=== PATIENT | male | born 1955 | race Caucasian/White ===

== ENCOUNTER → 2016-08-09 | Outpatient (CLI) | payer MEDICARE, OTHER ==
[2016-08-09 10:18] LABS: Non-African American GFR(MDRD) >60 (>60 ml/min/1.73 sqM)
--- NOTE | 2016-08-09 14:39 | MR ---
EXAMINATION TYPE: MR iac wo/w con DATE OF EXAM: 08/09/2016 12:54 PM COMPARISON: NONE HISTORY: H92.01 otalgia rt ear, TECHNIQUE: Multiplanar and multispin-echo imaging of the brain was performed both before and after the administr ation of contrast. High-resolution images are obtained of the internal auditory canals performed uti lizing 18 mL intravenous MultiHance contrast. The ventricles, basal cisterns and sulci overlying the cerebral convexities are mildly enlarged. There is no evidence for midline shift or mass effect. Acute intracranial hemorrhage or extra-axial collection is not evident. There is mild scattered periventricular white matter ischemic demyelination and remote deep white mat ter insults. High-resolution imaging of the internal auditory canals fails demonstrate evidence for an enhancing a coustic schwannoma or cerebellopontine cistern angle mass. Following contrast administration, there is no evidence for pathologic enhancement or enhancing mass. The paranasal sinuses and mastoid air cells are mildly thickened bilaterally suggesting chronic masto iditis right greater than left. IMPRESSION: 1. No evidence of acoustic schwannoma or cerebellopontine angle mass. 2. Correlate for chronic mastoiditis.
--- NOTE | 2016-08-11 09:34 | MR ---
EXAMINATION TYPE: MR tmj wo con DATE OF EXAM: 08/09/2016 12:54 PM COMPARISON: NONE HISTORY: otalgia rt ear, locked rt jaw Standard multiplanar, multisequence MRI departmental protocol Multiplanar, multisequence images of the bilateral TMJ joint spaces were acquired. FINDINGS: Left TMJ: There is poor visualization of the meniscus. This may be trapped anterior to the temporal m andibular joint. No definite recapture is identified. Condyle subluxes anteriorly with opening. Right TMJ: There appears to be subluxation of the condyle anterior at the temporomandibular joint wit h opening. The meniscus where visualized may sublux normally. Meniscus is limited visualization. IMPRESSION: 1. Extremely limited due to nondiagnostic examination. 2. Adequate demonstration of the meniscal subluxation and recapture is essentially nondiagnostic. Rig ht-sided may be better visualized although remaining limited.
== END | disposition home or self-care (01) ==
LOC: RADMRIMAIN 09:32
PROVIDERS: ATTEND Otolaryngology
DX: S03.01XA Dislocation of jaw, right side, initial encounter (principal); H91.90 Unspecified hearing loss, unspecified ear
CPT/HCPCS: 82565; 70553; 70336; A9577

== ENCOUNTER 2016-11-25 14:41 | Emergency (ER) | payer MEDICARE ==
[2016-11-25] MEDS ORDERED: SODIUM CHLORIDE 0.9% 1,000 ML IV STA (16:08)
[2016-11-25] MEDS ORDERED: KETOROLAC 30 MG/ML 1 ML VIAL IVP STA (16:09)
--- NOTE | 2016-11-25 16:13 | ED ---
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 He had x-rays done in his doctor's office and they were not sure if he had a rib fracture or not. He presents today because he has a sharp pain he states he gets worse with coughing and movement and deep breathing is a 9/10 at this level when he is at rest at 6-7/10 he currently is only on Plavix for blood thinner. He is scheduled to have colonoscopy done in the near future. He presents today again because of the persistent right-sided chest wall pain. He states he has had heart disease the past he does have cardiac stents does feel different. He denies any phlegm production with his cough though he states he seems HAVE a reflux type activity. MD Complaint: chest pain, other - Related Data Home Medications Medication Instructions Recorded Confirmed Methotrexate Sodium [Methotrexate] 20 mg PO SA 10/10/14 11/25/16 predniSONE 5 mg PO DAILY 10/10/14 11/25/16 Clopidogrel [Plavix] 75 mg PO DAILY 09/25/15 11/25/16 Atorvastatin [Lipitor] 80 mg PO DAILY 09/26/15 11/25/16 Fluticasone Nasal [place] [Flonase 2 spr EA NOSTRIL DAILY 11/25/16 11/25/16 Nasal [place]] Gemfibrozil [Lopid] 600 mg PO AC-BID 11/25/16 11/25/16 Lisinopril [Zestril] 10 mg PO DAILY 11/25/16 11/25/16 Metoprolol Succinate (ER) [Toprol 25 mg PO DAILY 11/25/16 11/25/16 Xl] Previous Rx's Medication Instructions Recorded Aspirin 81 mg PO DAILY #30 chew 10/13/14 Nitroglycerin Sl Tabs [Nitrostat] 0.4 mg SUBLINGUAL Q5M PRN #25 tab 10/13/14 Spironolactone [Aldactone] 25 mg PO DAILY #30 tab 10/13/14 Ipratropium Post 0.06%Nasal 2 spray NASAL BID #1 spray 10/04/15 [Atrovent Nasal 0.06%] Cyclobenzaprine [Flexeril] 10 mg PO TID #14 tab 11/25/16 Hydrocodone/Acetaminophen [[place] 1 each PO Q6HR PRN #20 tab 11/25/16 5-325] Allergies Allergy/AdvReac Type Severity Reaction Status Date / Time Penicillins Allergy Rash/Hives Verified 11/25/16 16:11 Review of Systems ROS Statement: Those systems with pertinent positive or pertinent negative responses have been documented in the HPI. ROS Other: All systems not noted in ROS Statement are negative. EKG Findings - EKG Results: EKG: interpreted by ALLISON, sinus rhythm (Sinus rhythm with a rate of 81 ID interval 136 QRS duration 86 daily since QTC of 368/427 low-voltage QRS and nonspecific inferior and anterior lateral changes.) Past Medical History Past Medical History: Coronary Artery Disease (CAD), Hyperlipidemia, Hypertension, Myocardial Infarction (non Q-wave), Rheumatoid Arthritis (RA) Additional Past Medical History / Comment(s): only 1 ear canal d/t defect History of Any Multi-Drug Resistant Organisms: None Reported Past Surgical History: No Surgical Hx Reported, Ear Surgery, Heart Catheterization With Stent, Orthopedic Surgery Additional Past Surgical History / Comment(s): plate right leg, arthroscopic in the right ankle 3, sinus surgery, multiple reconstructive surgeries on face, bilateral eyelid surgery 23 times. Past Anesthesia/Blood Transfusion Reactions: No Reported Reaction Date of Last Stent Placement:: unknown Past Psychological History: Anxiety, Depression Smoking Status: Never smoker Past Alcohol Use History: None Reported Additional Past Alcohol Use History / Comment(s): Patient denies any tobacco use. He states he drinks 2-425 ounce beers every . He smokes crack cocaine for 30 years and has been to [place] on 2 occasions as well as stated here in house. Past Drug Use History: Cocaine - Past Family History Father Family Medical History: Coronary Artery Disease (CAD), Myocardial Infarction ([place] ) Additional Family Medical History / Comment(s): Father at age 61 from myocardial infarction. Mother Family Medical History: Diabetes Mellitus Additional Family Medical History / Comment(s): Mother in her 30s from complications of diabetes. Brother(s) Family Medical History: Diabetes Mellitus, Hypertension Additional Family Medical History / Comment(s): Patient has 2 brothers one with diabetes and one with hypertension. Sister(s) Additional Family Medical History / Comment(s): He has one sister with diabetes and one half-sister. He has 3 children with no major medical problems. 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 Limitations: no limitations General appearance: alert, in no apparent distress, anxious Head exam: Present: atraumatic, normocephalic Eye exam: Present: normal appearance, PERRL, EOMI. Absent: scleral icterus, conjunctival injection, periorbital swelling ENT exam: Present: normal oropharynx, other (As noted above) Neck exam: Present: normal inspection. Absent: tenderness, meningismus, lymphadenopathy Respiratory exam: Present: normal lung sounds bilaterally, chest wall tenderness Cardiovascular Exam: Present: normal rhythm, tachycardia GI/Abdominal exam: Present: other (Obese abdomen). Absent: tenderness, pulsatile mass, hernia Extremities exam: Present: normal inspection, full ROM, normal capillary refill. Absent: tenderness, pedal edema, joint swelling, calf tenderness Back exam: Present: normal inspection Neurological exam: Present: alert, oriented X3, CN II-XII intact Psychiatric exam: Present: normal affect, normal mood Skin exam: Present: warm, dry, intact, normal color. Absent: rash Course Vital Signs 11/25/16 11/25/16 15:03 17:16 Temperature 97.9 F 98.2 F Pulse Rate 115 H 91 Respiratory 20 14 Rate Blood Pressure 119/89 127/64 O2 Sat by Pulse 96 95 Oximetry Chest Pain MDM - MDM I did evaluate the x-rays and report no acute findings. The patient presentation is consistent with costochondritis/chest wall pain anti- inflammatories are indicated as well as muscle relaxants. Patient be discharged with follow-up with his doctor return when necessary with respect to his chronic for back to his physician who can set up ENT or GI appointments. Disposition Clinical Impression: Chest wall syndrome, Costalchondritis Disposition: HOME SELF-CARE Condition: Good Instructions: Costochondritis (ED), Chest Pain (ED) Prescriptions: Cyclobenzaprine [Flexeril] 10 mg PO TID #14 tab Hydrocodone/Acetaminophen [[place] 5-325] 1 each PO Q6HR PRN #20 tab PRN Reason: Pain
[2016-11-25 16:28] LABS: Basophils # (A) 0.1 k/uL (0-0.2); Basophils % (A) 1 %; CH 33.6; Eosinophils # (A) 0.1 k/uL (0-0.7); Eosinophils % (A) 1 %; HCT 51.4 % (39.0-53.0); HDW 2.63; HGB 17.3 gm/dL (13.0-17.5); Luc # (Auto) 0.22; Luc % (Auto) 3; Lymphocytes # (A) 1.7 k/uL (1.0-4.8); Lymphocytes % (A) 22 %; MCH 33.3 pg (25.0-35.0); MCHC 33.6 g/dL (31.0-37.0); MCV 99.2 fL (80.0-100.0); Mean Platelet Volume 6.3; Monocytes # (A) 0.3 k/uL (0-1.0); Monocytes % (A) 4 %; Neutrophils # (A) 5.5 k/uL (1.3-7.7); Neutrophils % (A) 70 %; RBC 5.18 m/uL (4.30-5.90); RDW 13.6 % (11.5-15.5); WBC 7.9 k/uL (3.8-10.6); WBC (Perox) 7.67
--- NOTE | 2016-11-25 16:36 | XR ---
EXAMINATION TYPE: XR chest 2V DATE OF EXAM: 11/25/2016 4:33 PM COMPARISON: 07/20/2013 HISTORY: Right rib pain TECHNIQUE: Frontal and lateral views of the chest are obtained. FINDINGS: There is mild linear density at the lung bases consistent with subsegmental atelectasis. T here is right-sided rib deformity noted. There are no hilar masses. Heart size is normal. There is no pleural effusion. IMPRESSION: There is new mild subsegmental atelectasis at the lung bases compared to last exam. No f racture seen.
[2016-11-25 16:37] LABS: ALT 39 U/L (21-72); AST 27 U/L (17-59); Alkaline Phosphatase 69 U/L (38-126); Amylase 49 U/L (30-110); Anion Gap 11 mmol/L; Blood Urea Nitrogen 16 mg/dL (9-20); Calcium 9.5 mg/dL (8.4-10.2); Carbon Dioxide 24 mmol/L (22-30); Chloride 103 mmol/L (98-107); Glucose 93 mg/dL (74-99); Magnesium 1.9 mg/dL (1.6-2.3); Non-African American GFR(MDRD) >60 (>60 ml/min/1.73 sqM); Potassium 5.2 mmol/L (3.5-5.1); Sodium 138 mmol/L (137-145); Total Bilirubin 0.9 mg/dL (0.2-1.3); Total Protein 7.5 g/dL (6.3-8.2)
[2016-11-25 16:41] LABS: Partial Thromboplastin Time 23.6 sec (22.0-30.0); Prothrombin Time 10.6 sec (9.0-12.0)
[2016-11-25 16:48] LABS: Creatine Kinase 51 U/L (55-170)
[2016-11-25 17:01] LABS: Creatine Kinase MB 0.8 ng/mL (0.0-2.4); Troponin I <0.012 ng/mL (0.000-0.034)
[2016-11-25 18:33] VITALS: BP 120/81; PULSE 76; RESP 16; TEMP 98.5
== END 2016-11-25 18:45 | disposition home or self-care (01) ==
LOC: EC 14:41
DX: M94.0 Chondrocostal junction syndrome [Tietze] (principal); M06.9 Rheumatoid arthritis, unspecified; E78.5 Hyperlipidemia, unspecified; I10 Essential (primary) hypertension; Z88.0 Allergy status to penicillin; Z79.02 Long term (current) use of antithrombotics/antiplatelets; Z79.52 Long term (current) use of systemic steroids; Z79.51 Long term (current) use of inhaled steroids; Z79.899 Other long term (current) drug therapy
CPT/HCPCS: 99285; 96374; 96361 ×2; 36415; 93005; 85379; 83880; 80053; 82150; 82550; 82553; 83690; 83735; 84484; 85025; 85610; 85730; 71020; J1885

== ENCOUNTER → 2017-01-20 | Outpatient (CLI) | payer MEDICARE ==
--- NOTE | 2017-01-20 19:12 | CT ---
EXAMINATION TYPE: CT abdomen w con DATE OF EXAM: 01/20/2017 COMPARISON: NONE HISTORY: Right upper quadrant pain. Possible hernia. Cartilage from ribs removed from that region. CT DLP: 1114.00 mGycm Automated exposure control for dose reduction was used. TECHNIQUE: Helical acquisition of images was performed from the lung bases through the top of iliac crest to include entire abdomen. CONTRAST: Performed with Oral Contrast and with IV Contrast, patient injected with 100 mL of Omnipaque 300. FINDINGS: Lung bases are clear of consolidation. There is no pleural effusion. The heart size is normal. Liver shows some fatty infiltration. Spleen appears normal. There is no pancreatic mass. Gallbladder is contracted. Bile ducts are not dilated. There is no adrenal mass. Kidneys show satisfactory contra st opacification. There is no hydronephrosis. There is no retroperitoneal adenopathy. There is no asc ites. There is a small umbilical hernia that measures 1 cm that contains fat. I see no bony destructi ve process. IMPRESSION: SMALL UMBILICAL HERNIA. FATTY INFILTRATION OF THE LIVER. NO SIGN OF ACUTE ABDOMEN . NO SIGN OF DIAPHR AGMATIC HERNIA.
== END | disposition home or self-care (01) ==
LOC: RADCTMAIN 17:54
PROVIDERS: ATTEND Surgery
DX: K42.9 Umbilical hernia without obstruction or gangrene (principal); K76.0 Fatty (change of) liver, not elsewhere classified
CPT/HCPCS: 74160; Q9967

== ENCOUNTER 2018-03-26 02:45 | Inpatient (IN) | payer MEDICARE, MEDICAID ==
[2018-03-26 04:37] LABS: Amphetamine Screen,Urine Not Detected (NotDetected); Barbiturate Screen,Urine Not Detected (NotDetected); Benzodiazepines Screen,Urine Not Detected (NotDetected); Cocaine Screen,Urine Detected (NotDetected); Methadone Screen, Urine Not Detected (NotDetected); Opiate Screen,Urine Not Detected (NotDetected); Oxycodone Screen, Urine Not Detected (NotDetected); Phencyclidine Screen,Urine Not Detected (NotDetected); Tricyclic Antidepressant,Urine Not Detected (NotDetected); Urn Cannabinoid Scrn Not Detected (NotDetected)
--- NOTE | 2018-03-26 12:18 | ED ---
General Adult HPI - General Chief complaint: Psychiatric Symptoms Stated complaint: Mental Health Time Seen by Provider: 03/26/18 02:49 Source: EMS, RN notes reviewed, old records reviewed Mode of arrival: EMS Limitations: no limitations - History of Present Illness Initial comments: This is a 63-year-old male presenting for evaluation regarding suicidal thoughts. Major depression, patient is history of psychiatric illness. Patient feels like he is a burn to his family he wants to kill himself. He plans on killing himself. Patient currently denies any drugs or alcohol - Related Data Home Medications Medication Instructions Recorded Confirmed Methotrexate Sodium [Methotrexate] 20 mg PO SA 10/10/14 03/26/18 Clopidogrel [Plavix] 75 mg PO DAILY 09/25/15 03/26/18 Atorvastatin [Lipitor] 80 mg PO DAILY 09/26/15 03/26/18 Fluticasone Nasal [place] [Flonase 1 spr EA NOSTRIL DAILY 11/25/16 03/26/18 Nasal [place]] Etanercept [Enbrel] 50 mg SQ Q7DAYS 03/26/18 03/26/18 Losartan Potassium [Cozaar] 25 mg PO DAILY 03/26/18 03/26/18 Loteprednol Etabonate [Lotemax] 5 ml OP MOWEFR 03/26/18 03/26/18 Metoprolol Tartrate [Lopressor] 50 mg PO DAILY 03/26/18 03/26/18 Previous Rx's Medication Instructions Recorded Aspirin 81 mg PO DAILY #30 chew 10/13/14 Nitroglycerin Sl Tabs [Nitrostat] 0.4 mg SUBLINGUAL Q5M PRN #25 tab 10/13/14 Spironolactone [Aldactone] 25 mg PO DAILY #30 tab 10/13/14 Allergies Allergy/AdvReac Type Severity Reaction Status Date / Time Penicillins Allergy Rash/Hives Verified 03/26/18 09:37 Review of Systems ROS Statement: Those systems with pertinent positive or pertinent negative responses have been documented in the HPI. ROS Other: All systems not noted in ROS Statement are negative. Past Medical History Past Medical History: Coronary Artery Disease (CAD), Hyperlipidemia, Hypertension, Myocardial Infarction (non Q-wave), Rheumatoid Arthritis (RA) Additional Past Medical History / Comment(s): only 1 ear canal d/t defect History of Any Multi-Drug Resistant Organisms: None Reported Past Surgical History: No Surgical Hx Reported, Ear Surgery, Heart Catheterization With Stent, Orthopedic Surgery Additional Past Surgical History / Comment(s): plate right leg, arthroscopic in the right ankle 3, sinus surgery, multiple reconstructive surgeries on face, bilateral eyelid surgery 23 times. Past Anesthesia/Blood Transfusion Reactions: No Reported Reaction Date of Last Stent Placement:: unknown Past Psychological History: Anxiety, Depression Smoking Status: Never smoker Past Alcohol Use History: Occasional Past Drug Use History: Cocaine - Past Family History Father Family Medical History: Coronary Artery Disease (CAD), Myocardial Infarction ([place] ) Additional Family Medical History / Comment(s): Father at age 61 from myocardial infarction. Mother Family Medical History: Diabetes Mellitus Additional Family Medical History / Comment(s): Mother in her 30s from complications of diabetes. Brother(s) Family Medical History: Diabetes Mellitus, Hypertension Additional Family Medical History / Comment(s): Patient has 2 brothers one with diabetes and one with hypertension. Sister(s) Additional Family Medical History / Comment(s): He has one sister with diabetes and one half-sister. He has 3 children with no major medical problems. General Exam Limitations: no limitations General appearance: alert, in no apparent distress Head exam: Present: atraumatic, normocephalic, normal inspection Eye exam: Present: normal appearance, PERRL, EOMI. Absent: scleral icterus, conjunctival injection, periorbital swelling ENT exam: Present: normal exam, mucous membranes moist Neck exam: Present: normal inspection. Absent: tenderness, meningismus, lymphadenopathy Respiratory exam: Present: normal lung sounds bilaterally. Absent: respiratory distress, wheezes, rales, rhonchi, stridor Cardiovascular Exam: Present: regular rate, normal rhythm, normal heart sounds. Absent: systolic murmur, diastolic murmur, rubs, gallop, clicks GI/Abdominal exam: Present: soft, normal bowel sounds. Absent: distended, tenderness, guarding, rebound, rigid Extremities exam: Present: normal inspection, full ROM, normal capillary refill. Absent: tenderness, pedal edema, joint swelling, calf tenderness Back exam: Present: normal inspection Neurological exam: Present: alert, oriented X3, CN II-XII intact Psychiatric exam: Present: normal affect, normal mood Skin exam: Present: warm, dry, intact, normal color. Absent: rash Course Vital Signs 03/26/18 03/26/18 03/26/18 02:54 06:11 11:38 Temperature 98.0 F 97.8 F 98.6 F Pulse Rate 93 100 96 Respiratory 18 18 18 Rate Blood Pressure 168/115 157/97 164/92 O2 Sat by Pulse 93 L 95 94 L Oximetry Medical Decision Making - Medical Decision Making 60 female seen and evaluated with psychiatry, patient be transferred for inpatient psychiatric treatment - Lab Data Lab Results 03/26/18 Range/Units 04:05 Urine Opiates Screen Not Detected (NotDetected) Ur Oxycodone Screen Not Detected (NotDetected) Urine Methadone Screen Not Detected (NotDetected) Ur Propoxyphene Screen Not Detected (NotDetected) Ur Barbiturates Screen Not Detected (NotDetected) U Tricyclic Antidepress Not Detected (NotDetected) Ur Phencyclidine Scrn Not Detected (NotDetected) Ur Amphetamines Screen Not Detected (NotDetected) U Methamphetamines Scrn Not Detected (NotDetected) U Benzodiazepines Scrn Not Detected (NotDetected) Urine Cocaine Screen Detected H (NotDetected) U Marijuana (THC) Screen Not Detected (NotDetected) Disposition Clinical Impression: Depression, Suicidal ideation Disposition: TRANSFER TO PSYCH HOSP/UNIT Condition: Fair Is patient prescribed a controlled substance at d/c from ED?: No Referrals: Van Wells MD [Primary Care Provider] - 1-2 days
[2018-03-26] MEDS ORDERED: ZIPRASIDONE 20 MG VIAL IM PRN (21:24)
[2018-03-26] MEDS ORDERED: MAGNESIUM HYDROXIDE 2,400 MG/10 ML CUP PO PRN (21:24)
[2018-03-26] MEDS ORDERED: MAG HYDROX/AL HYDROX/SIMETH 30 ML CUP PO PRN (21:24)
[2018-03-26] MEDS ORDERED: ACETAMINOPHEN TAB 325 MG TAB PO PRN (21:24)
[2018-03-26] MEDS: LORazepam 1 MG TAB PO PRN (22:41)
--- NOTE | 2018-03-26 23:30 | P.MDCNMH ---
History of Present Illness H&P Date: 03/26/18 Chief Complaint: medical management 63-year-old male with history of hypertension, CAD status post stents, ischemic cardiomyopathy with left ventricular ejection fraction of 30%. Patient presented to the hospital due to suicidal ideation, patient feels that she is a burden to his family feels hopeless and helpless. Patient had multiple episodes of suicidal ideation in the past. Patient also admits to using cocaine and drinking alcohol on regular basis. Currently patient is very emotional and tearful he feels rejected by the family. Patient reports defect when he was born. Currently denies any fevers or chills denies any headache denies any focal neurologic deficits. He is reporting some chest pressure when he becomes emotional but currently denies any chest pain or trouble breathing. Patient denies any GI bleeding denies any abdominal pain nausea vomiting or any changes in his bowel or urinary habits. Review of Systems Pertinent positives as noted in HPI. All other systems were reviewed and are negative Past Medical History Past Medical History: Coronary Artery Disease (CAD), Hyperlipidemia, Hypertension, Myocardial Infarction (non Q-wave), Rheumatoid Arthritis (RA) Additional Past Medical History / Comment(s): only 1 ear canal d/t defect Last Myocardial Infarction Date:: [facility] History of Any Multi-Drug Resistant Organisms: None Reported Past Surgical History: No Surgical Hx Reported, Ear Surgery, Heart Catheterization With Stent, Orthopedic Surgery Additional Past Surgical History / Comment(s): plate right leg, arthroscopic in the right ankle 3, sinus surgery, multiple reconstructive surgeries on face, bilateral eyelid surgery 23 times. Past Anesthesia/Blood Transfusion Reactions: No Reported Reaction Date of Last Stent Placement:: unknown Past Psychological History: Anxiety, Depression Smoking Status: Never smoker Past Alcohol Use History: Occasional Additional Past Alcohol Use History / Comment(s): Patient denies any tobacco use. He states he drinks 2-4 , 24 ounce beers every . He smokes crack cocaine for 30 years and has been to [place] on 2 occasions as well as stated here in house. Past Drug Use History: Cocaine - Past Family History Father Family Medical History: Coronary Artery Disease (CAD), Myocardial Infarction ([place] ) Additional Family Medical History / Comment(s): Father at age 61 from myocardial infarction. Mother Family Medical History: Diabetes Mellitus Additional Family Medical History / Comment(s): Mother in her 30s from complications of diabetes. Brother(s) Family Medical History: Diabetes Mellitus, Hypertension Additional Family Medical History / Comment(s): Patient has 2 brothers one with diabetes and one with hypertension. Sister(s) Additional Family Medical History / Comment(s): He has one sister with diabetes and one half-sister. He has 3 children with no major medical problems. Medications and Allergies Home Medications Medication Instructions Recorded Confirmed Type Methotrexate Sodium [Methotrexate] 20 mg PO SA 10/10/14 03/26/18 History Aspirin 81 mg PO DAILY #30 chew 10/13/14 03/26/18 Rx Nitroglycerin Sl Tabs [Nitrostat] 0.4 mg SUBLINGUAL Q5M PRN #25 tab 10/13/1401/05 Rx Spironolactone [Aldactone] 25 mg PO DAILY #30 tab 10/13/14 03/26/18 Rx Clopidogrel [Plavix] 75 mg PO DAILY 09/25/15 03/26/18 History Atorvastatin [Lipitor] 80 mg PO DAILY 09/26/15 03/26/18 History Fluticasone Nasal [place] [Flonase 1 spr EA NOSTRIL DAILY 11/25/16 03/26/18 History Nasal [place]] Etanercept [Enbrel] 50 mg SQ Q7DAYS 03/26/18 03/26/18 History Losartan Potassium [Cozaar] 25 mg PO DAILY 03/26/18 03/26/18 History Loteprednol Etabonate [Lotemax] 5 ml OP MOWEFR 03/26/18 03/26/18 History Metoprolol Tartrate [Lopressor] 50 mg PO DAILY 03/26/18 03/26/18 History Allergies Allergy/AdvReac Type Severity Reaction Status Date / Time Penicillins Allergy Rash/Hives Verified 03/26/18 23:12 Physical Exam Vitals: Vital Signs Temp Pulse Resp BP Pulse Ox 03/26/18 11:38 98.6 F 96 18 164/92 94 L 03/26/18 06:11 97.8 F 100 18 157/97 95 03/26/18 02:54 98.0 F 93 18 168/115 93 L Constitutional: No acute distress, conversant, emotional, tearful Eyes: Anicteric sclerae, moist conjunctiva, no lid-lag Pupils equal round reactive to light ENMT: Patient has noticeable abnormality of the face, patient had resting defect with abnormal right external ear asymmetric face, tongue is asymmetrical with noticeable right facial weakness Oropharynx anatomically 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, no erythema, exudates Neck: Supple, FROM, no masses, or JVD No carotid bruits No thyromegaly Lungs: Clear to auscultation Clear to percussion Normal respiratory effort, no accessory muscle use Cardiovascular: Heart regular in rate and rhythm, No murmurs, gallops, or rubs No peripheral edema Abdominal: Soft Nontender, no guarding, rebound or rigidity Abdomen moving with respiration Normoactive bowel sounds No hepatomegaly, No splenomegaly No palpable mass No abdominal wall hernia noted Skin: Normal temperature, tone, texture, turgor No induration No subcutaneous nodules No rash, lesions No ulcers Extremities: No digital cyanosis No clubbing Pedal pulses intact and symmetrical Radial pulses intact and symmetrical No calf tenderness Psychiatric: Alert and oriented to person, place and time Depressed affect Poor judgment Neuro Muscles Strength 5/5 in all 4 extremities Sensation to light touch grossly present throughout No focal sensory deficits Lymphatics: no palpable cervical or supraclavicular , or inguinal lymph nodes Cranial Nerve Examination - Cranial Nerves Cranial Nerve II- Optic: Intact Cranial Nerve III- Oculomotor: Intact Cranial Nerve IV- Trochlear: Intact Cranial Nerve V- Trigeminal: Intact Cranial Nerve - Abducens: Intact Cranial Nerve VII- Facial: Impaired Cranial Nerve VIII- Auditory: Impaired Cranial Nerve IX- Glossopharyngeal: Impaired Cranial Nerve X- Vagus: Intact Cranial Nerve XI- Accessory: Intact Cranial Nerve XII- Hypoglossal: Impaired Results Labs: Abnormal Lab Results - Last 24 Hours (Table) 03/26/18 Range/Units 04:05 Urine Cocaine Screen Detected H (NotDetected) Assessment and Plan Assessment: 63-year-old male with history of CAD, CHF, depression. Presented to the hospital due to suicidal ideation. Medicine was consulted to help with management of hypertension, history of CAD and CHF which are currently stable Plan: Suicidal ideation Depression suicide precautions Management per psych History of CAD status post stents Ischemic cardiomyopathy with systolic CHF left ventricular ejection fraction is around 30% in 2015 currently compensated Continue home medications Continue aspirin and statin, losartan, spironolactone Consider outpatient follow-up with 2-D echocardiogram This patient suffers from any chest pain while inpatient will consider cardiac workup Hypertension currently stable Hyperlipidemia continue statin Rheumatoid arthritis currently stable Continue with home medications Polysubstance abuse Patient counseled to quit cocaine DVT prophylaxis low risk as patient is ambulatory Follow-up labs Thank you for allowing us to participate in the care of this patient. We will follow peripherally. Do not hesitate to contact us with questions. Someone can be reached from the [facility] hospitalist group at all hours of the day at [phone].
[2018-03-27] MEDS: ATORVASTATIN 80 MG TAB PO SCH (08:16)
[2018-03-27] MEDS: CLOPIDOGREL 75 MG TAB PO SCH (08:16)
[2018-03-27] MEDS: METOPROLOL TARTRATE 50 MG TAB PO SCH (08:17)
[2018-03-27] MEDS: FLUTICASONE 50MCG/SPRAY NASAL 16GM EA NOSTRIL SCH (08:17)
[2018-03-27] MEDS: LOSARTAN 25 MG TAB PO SCH (08:17)
[2018-03-27] MEDS: SPIRONOLACTONE 25 MG TAB PO SCH (08:17)
[2018-03-27] MEDS: ASPIRIN 81 MG PO SCH (08:17)
[2018-03-27 08:31] LABS: Basophils % (A) 0 %; Eosinophils # (A) 0.1 k/uL (0-0.7); Eosinophils % (A) 2 %; HCT 47.8 % (39.0-53.0); HGB 15.7 gm/dL (13.0-17.5); Lymphocytes # (A) 1.7 k/uL (1.0-4.8); Lymphocytes % (A) 32 %; MCH 31.4 pg (25.0-35.0); MCHC 32.8 g/dL (31.0-37.0); MCV 95.9 fL (80.0-100.0); Mean Platelet Volume 6.5; Monocytes # (A) 0.3 k/uL (0-1.0); Monocytes % (A) 7 %; Neutrophils # (A) 2.8 k/uL (1.3-7.7); Neutrophils % (A) 55 %; Platelet Count 299 k/uL (150-450); RBC 4.99 m/uL (4.30-5.90); RDW 15.2 % (11.5-15.5); WBC 5.2 k/uL (3.8-10.6)
[2018-03-27 09:14] LABS: Albumin 3.7 g/dL (3.5-5.0); Bilirubin, Delta 0.3 mg/dL (0.0-0.2); Bilirubin,Unconjugated 1.1 mg/dL (0.0-1.1); Potassium 4.3 mmol/L (3.5-5.1); Total Bilirubin 1.4 mg/dL (0.2-1.3); Total Protein 6.6 g/dL (6.3-8.2)
--- NOTE | 2018-03-27 14:27 | P.HP ---
Psychiatric H&P - . H&P Date: 03/27/18 History & Physical: IDENTIFYING DATA: The patient is a 63-year-old male who presented to the psychiatric unit voluntarily. HISTORY OF PRESENT ILLNESS: He complaints of depression and suicidal ideation in the context of relapse to cocaine use. He was acutely distressed and cried during the interview. He perseverated on his relationship with his daughter. Apparently his daughter told him that if he does not stop using cocaine she does not want him to have contact with his grandchildren. He was greatly distressed by this ultimatum. He pleaded for us to speak with his daughter and explained to her that addiction is a chronic relapsing condition for which he has no control. His daughter had planned on a family picnic on Friday. After she called to reschedule it for Friday he relapsed on cocaine. He became depressed, hopeless and overwhelmingly guilty. He presented to the ER because in the past he was able to control his cocaine use following a psychiatric hospitalization followed by residential substance abuse treatment. He stated that does not use cocaine when he does not have access to money. He had arranged for his payee to give his $100 week allowance to his daughter rather than directly to him because when he receives more than "5 or $10 per day " he cannot control his desire to use cocaine. His daughter took the $100 and gave his a small daily allowance of $5 no more than $20 per day. However, she recently moved and is with her fourth child. About 3 months ago she told him that she could no longer manage his allowance. When he began receiving his allowance directly she relapsed to cocaine. He stated that he cannot not have access to money because if he has money he will use cocaine. He has absolutely no control over his desire to use cocaine. He drinks alcohol approximately 20 ounces of beer 1 or 2 times per week but denied use of other drugs to get high, help him sleep or changes mood including marijuana. He described feeling sad, hopeless, helpless and worthless. He feels guilty over his cocaine use and recent relapse to cocaine and ruminates over his recurrent struggle with cocaine use. However, he denied hearing accusatory or denunciatory voices or experiencing threatening visual hallucinations. He described thoughts of suicide and wishes that he were but denied suicidal intent or plan. He denied history of suicide attempts or gestures. She denied problems with sleep except when he is using cocaine. He describes subjective tension and worry but denied persistent anxiety that interfered with his ability to function. He denied periods of anxiety to the built up to crescendo suggestive of panic attacks. He denied obsessions or compulsions. He denied such psychotic symptoms as auditory, visual or olfactory hallucinations, ideas reference, thought insertion, thought control etc. PAST PSYCHIATRIC HISTORY: This is his third admission to our psychiatric unit. He stated he had one other psychiatric admission to hospital in [facility]. He was involved with individual therapy through [facility] until about 3 months ago when he was discharged from repeated failure to keep appointments. He denied seeing a psychiatrist or taken prescribed psychotropic medications since his last discharge. PAST MEDICAL HISTORY: He has cerebral palsy with a right facial nerve impairment and dysarthria. He states he has a history of coronary artery disease, hyperlipidemia, hypertension, myocardial infarct and rheumatoid arthritis. ALLERGIES: Penicillins. SUBSTANCE USE HISTORY: As above. FAMILY PSYCHIATRIC/SUBSTANCE USE HISTORY: According to record, a nephew by suicide and his brother have a history of substance use problems. SOCIAL HISTORY: He was born and raised in [facility]. He left school in the 12th grade. He reported social problems as a result of his physical disability and difficulty with learning. He quit work about 20 years ago as result of his physical problems. He was for about 18 years and is currently . He has 3 children. He has close relationship with his daughter but is estranged from his 2 sons. He lives alone in an apartment in [place] and receives social security disability. He has a payee. He denied current legal problems. He had past charges of DUI, domestic violence and embezzlement. MENTAL STATUS EXAM: He presented as a short, moderately obese disheveled and unshaven 63-year-old man. He was pleasant on approach and maintained eye contact. He had a facial asymmetry and a slow but steady gait. He had a distressed facial expression and cried intermittently during the interview. He was alert and oriented to person, place and time. He showed psychomotor retardation but no abnormal movements. His speech was dysarthic, spontaneous with the rate, rhythm and volume were consistent with his affect. His affect was depressed and at times intense and inappropriate. He expressed wishes but denied suicidal ideation, intent or plan. He denied homicidal ideation. He expressed such depressive cognitions as hopelessness helplessness and worthlessness he was in the context of his cocaine use and concerns of her relationship with his daughter. He perseverated about his cocaine use. He did not express clear ideas reference, paranoid ideation or delusional thoughts. His thinking was abstract and associations were coherent, logical and goal directed. He did not express clang associations, neologisms or blocking. He denied hallucinations and did not appear to be responding to internal stimuli. Global impression of intellect is average. He is aware of his illness and need for mental health treatment. IMPRESSIONS: He is a 63-year-old male who has a history of cocaine use disorder. He presented to the psychiatric unit with complaints of increased depression and thoughts of suicide in the context of continued use of cocaine and the threat of estrangement from his daughter and grandchildren. He described thoughts of suicide, hopelessness, helplessness and worthlessness but denies suicidal intent or plan. He recognized that he has a cocaine use problem and expressed an interest and reentering residential treatment program. He recognizes his depression but is ambivalent about starting a antidepressant medication. He expressed an interest in engaging in individual therapy/counseling. DIAGNOSIS Cocaine withdrawal, cocaine use disorder severe, cocaine-induced depressive disorder, rule out major depressive disorder, cerebral palsy PLAN: Admitted to the psychiatric unit under care of this residential mortgage underwriter. Safety precautions. We will continue our discussion on the value of a antidepressant for the treatment of mood symptoms related to his cocaine use. circulation worker to assist with referral to a residential substance abuse treatment program. Ativan 1 mg by mouth 3 times a day when necessary for agitation or anxiety. Consult medicine for initial physical exam and medical history. Encourage participation in therapeutic groups and activities. Evaluate clinical status response to treatment daily basis . Allergies Allergy/AdvReac Type Severity Reaction Status Date / Time Penicillins Allergy Rash/Hives Verified 03/26/18 23:12 Vital Signs Temp 97.6 F 03/27/18 07:13 Pulse 124 H 03/27/18 08:24 Resp 16 03/27/18 08:24 BP 129/89 03/27/18 08:24 Pulse Ox 97 03/27/18 07:13 Intake & Output 03/26/18 03/27/18 03/27/18 18:59 06:59 18:59 Weight 95.552 kg Laboratory Last Values WBC 5.2 k/uL (3.8-10.6) 03/27/18 08:13 RBC 4.99 m/uL (4.30-5.90) 03/27/18 08:13 Hgb 15.7 gm/dL (13.0-17.5) 03/27/18 08:13 Hct 47.8 % (39.0-53.0) 03/27/18 08:13 MCV 95.9 fL (80.0-100.0) 03/27/18 08:13 MCH 31.4 pg (25.0-35.0) 03/27/18 08:13 MCHC 32.8 g/dL (31.0-37.0) 03/27/18 08:13 RDW 15.2 % (11.5-15.5) 03/27/18 08:13 Plt Count 299 k/uL (150-450) 03/27/18 08:13 Neutrophils % 55 % 03/27/18 08:13 Lymphocytes % 32 % 03/27/18 08:13 Monocytes % 7 % 03/27/18 08:13 Eosinophils % 2 % 03/27/18 08:13 Basophils % 0 % 03/27/18 08:13 Neutrophils # 2.8 k/uL (1.3-7.7) 03/27/18 08:13 Lymphocytes # 1.7 k/uL (1.0-4.8) 03/27/18 08:13 Monocytes # 0.3 k/uL (0-1.0) 03/27/18 08:13 Eosinophils # 0.1 k/uL (0-0.7) 03/27/18 08:13 Basophils # 0.0 k/uL (0-0.2) 03/27/18 08:13 Sodium 140 mmol/L (137-145) 03/27/18 08:13 Potassium 4.3 mmol/L (3.5-5.1) 03/27/18 08:13 Chloride 103 mmol/L (98-107) 03/27/18 08:13 Carbon Dioxide 27 mmol/L (22-30) 03/27/18 08:13 Anion Gap 10 mmol/L 03/27/18 08:13 BUN 14 mg/dL (9-20) 03/27/18 08:13 Creatinine 1.18 mg/dL (0.66-1.25) 03/27/18 08:13 Est GFR (CKD-EPI)AfAm 76 (>60 ml/min/1.73 sqM) 03/27/18 08:13 Est GFR (CKD-EPI)NonAf 65 (>60 ml/min/1.73 sqM) 03/27/18 08:13 Glucose 111 mg/dL (74-99) H 03/27/18 08:13 Calcium 9.0 mg/dL (8.4-10.2) 03/27/18 08:13 Total Bilirubin 1.4 mg/dL (0.2-1.3) H 03/27/18 08:13 Conjugated Bilirubin 0.0 mg/dL (0.0-0.3) 03/27/18 08:13 Unconjugated Bilirubin 1.1 mg/dL (0.0-1.1) 03/27/18 08:13 Delta Bilirubin 0.3 mg/dL (0.0-0.2) H 03/27/18 08:13 AST 48 U/L (17-59) 03/27/18 08:13 ALT 76 U/L (21-72) H 03/27/18 08:13 Alkaline Phosphatase 69 U/L (38-126) 03/27/18 08:13 Total Protein 6.6 g/dL (6.3-8.2) 03/27/18 08:13 Albumin 3.7 g/dL (3.5-5.0) 03/27/18 08:13 TSH 2.250 mIU/L (0.465-4.680) 03/27/18 08:13 Urine Opiates Screen Not Detected (NotDetected) 03/26/18 04:05 Ur Oxycodone Screen Not Detected (NotDetected) 03/26/18 04:05 Urine Methadone Screen Not Detected (NotDetected) 03/26/18 04:05 Ur Propoxyphene Screen Not Detected (NotDetected) 03/26/18 04:05 Ur Barbiturates Screen Not Detected (NotDetected) 03/26/18 04:05 U Tricyclic Antidepress Not Detected (NotDetected) 03/26/18 04:05 Ur Phencyclidine Scrn Not Detected (NotDetected) 03/26/18 04:05 Ur Amphetamines Screen Not Detected (NotDetected) 03/26/18 04:05 U Methamphetamines Scrn Not Detected (NotDetected) 03/26/18 04:05 U Benzodiazepines Scrn Not Detected (NotDetected) 03/26/18 04:05 Urine Cocaine Screen Detected (NotDetected) H 03/26/18 04:05 U Marijuana (THC) Screen Not Detected (NotDetected) 03/26/18 04:05 03/27/18 10:43 03/27/18 11:23 03/27/18 14:19
[2018-03-28] MEDS: LORazepam 1 MG TAB PO PRN ×2 (01:59→23:47)
[2018-03-28] MEDS: CLOPIDOGREL 75 MG TAB PO SCH (09:14)
[2018-03-28] MEDS: SPIRONOLACTONE 25 MG TAB PO SCH (09:14)
[2018-03-28] MEDS: LOSARTAN 25 MG TAB PO SCH (09:14)
[2018-03-28] MEDS: ATORVASTATIN 80 MG TAB PO SCH (09:14)
[2018-03-28] MEDS: ASPIRIN 81 MG PO SCH (09:14)
[2018-03-28] MEDS: METOPROLOL TARTRATE 50 MG TAB PO SCH (09:14)
[2018-03-28] MEDS: FLUTICASONE 50MCG/SPRAY NASAL 16GM EA NOSTRIL SCH (09:15)
[2018-03-28] MEDS: predniSONE 5 MG TAB PO SCH (12:04)
[2018-03-28] MEDS: METHOTREXATE SODIUM 2.5 MG TAB PO SCH (12:05)
[2018-03-28] MEDS: ARTIFICIAL TEARS-HYPROMELLOSE DROPS 15 ML BTL BOTH EYES PRN ×2 (12:06→20:51)
--- NOTE | 2018-03-28 13:50 | P.PN ---
Progress Note - Text Progress Note Date: 03/28/18 Interval history: Patient is seen in cross coverage today. He describes feeling tired today. He states that his legs were shaking last night, he went up to get an Ativan and then he slept well. He describes a history of problems with drug use. He states that he needs to have a system where he is given a little bit of a money at a time because when he gets the whole amount he historically has spent it on drugs. He makes reference to having on and off thoughts of suicide, makes reference to perhaps his drug use being related to suicide. Mental status exam: He is alert and cooperative with the interview. He relays that he is hard of hearing. He describes his mood as tired. He admits to some on and off thoughts of suicide, relates he feels safe here on the unit. He denies any thoughts of harm to others. I do not see any evidence of active psychosis. He does not show any agitation. Plan: We'll maintain current treatment regimen. Continue to monitor his mood and monitor regarding any thoughts of suicide. We'll continue to cover this patient for the weekend. We discussed the use of coping skills.
[2018-03-29] MEDS: ARTIFICIAL TEARS-HYPROMELLOSE DROPS 15 ML BTL BOTH EYES PRN (07:37)
[2018-03-29] MEDS: LOSARTAN 25 MG TAB PO SCH (07:38)
[2018-03-29] MEDS: METOPROLOL TARTRATE 50 MG TAB PO SCH (07:38)
[2018-03-29] MEDS: predniSONE 5 MG TAB PO SCH (07:38)
[2018-03-29] MEDS: SPIRONOLACTONE 25 MG TAB PO SCH (07:38)
[2018-03-29] MEDS: ASPIRIN 81 MG PO SCH (07:38)
[2018-03-29] MEDS: ATORVASTATIN 80 MG TAB PO SCH (07:38)
[2018-03-29] MEDS: CLOPIDOGREL 75 MG TAB PO SCH (07:39)
[2018-03-29] MEDS: FLUTICASONE 50MCG/SPRAY NASAL 16GM EA NOSTRIL SCH (07:39)
--- NOTE | 2018-03-29 12:15 | P.PN ---
Progress Note - Text Progress Note Date: 03/29/18 Interval history: Patient seen in cross [facility] today. He describes that his mood is dependent on several things. He describes still having on and off thoughts of suicide, reports he feels safe here in the hospital. He describes multiple stressors. He again talks about finances. He makes reference to having issue with leaking urine. Mental status exam: He is alert and cooperative with the interview. His speech is fluent, with an ongoing quality to it at times. He admits to some on and off thoughts of suicide, reports he feels safe here in the hospital. He feels like he needs more treatment here as an inpatient. He does not show any evidence of active psychosis. Plan: Patient will be maintained on current psychotropic medication regimen. We 'll continue to monitor for any medication side effects monitor his ongoing response to treatment. Continue to monitor regarding any thoughts of suicide.
[2018-03-29 22:17] LABS: Appearance,Urine Clear (Clear); Bilirubin,Urine Negative (Negative); Blood,Urine Negative (Negative); Color,Urine Light Yellow; Glucose,Urine (UA) 3+ (Negative); Ketones,Urine Negative (Negative); Leukocyte Esterase,Urine Negative (Negative); Nitrite,Urine Negative (Negative); Protein,Urine Negative (Negative); Specific Gravity,Urine 1.009 (1.001-1.035); Urobilinogen,Urine <2.0 mg/dL (<2.0)
[2018-03-29] MEDS: LORazepam 0.5 MG TAB PO PRN (22:55)
[2018-03-30] MEDS: CLOPIDOGREL 75 MG TAB PO SCH (08:03)
[2018-03-30] MEDS: ASPIRIN 81 MG PO SCH (08:03)
[2018-03-30] MEDS: SPIRONOLACTONE 25 MG TAB PO SCH (08:03)
[2018-03-30] MEDS: METOPROLOL TARTRATE 50 MG TAB PO SCH (08:03)
[2018-03-30] MEDS: ARTIFICIAL TEARS-HYPROMELLOSE DROPS 15 ML BTL BOTH EYES PRN ×2 (08:03→17:15)
[2018-03-30] MEDS: predniSONE 5 MG TAB PO SCH (08:03)
[2018-03-30] MEDS: LOSARTAN 25 MG TAB PO SCH (08:03)
[2018-03-30] MEDS: FLUTICASONE 50MCG/SPRAY NASAL 16GM EA NOSTRIL SCH (08:03)
[2018-03-30] MEDS: ATORVASTATIN 80 MG TAB PO SCH (08:03)
[2018-03-30] MEDS: SERTRALINE 50 MG TAB PO SCH (12:24)
--- NOTE | 2018-03-30 14:18 | P.PN ---
Progress Note - Text Progress Note Date: 03/30/18 Clinical Problems: Cocaine withdrawal, cocaine induced mood disorder, cocaine use disorder severe, cerebral palsy Interim history: I reviewed the medical record, interviewed the patient and discuss his treatment and treatment plan during team meeting. He had a number of complaints. He feels depressed, hopeless and helpless. He complained of difficulty falling and staying asleep. He complained of eye pain and not being able to receive his dose of Enbrel (the medication is non formulary and he alleged that he has no family or friends who could bring the medication to the hospital from his apartment). He feels tense, nervous and apprehensive. He remains distressed that his daughter may limit his contact with her and his grandchildren. He wants us "or somebody" to assume responsibility of giving him a daily allowance instead of the weekly allowance from his guardian. We discussed treatment options. He alleged that he is still interested in entering a substance abuse treatment but he has to distressed at this present time. He expressed ambivalence over her psychotropic medications alleging that he experienced adverse effects in the past. We discussed treatment options and he agreed to a trial of Zoloft for his depression. He declined a trial of a sleep medication. Mental status exam: He presented as disheveled and unkept appearing elderly male. He was emotionally distraught and cried intermittently during the interview. He complained of difficulty concentrating and described anhedonia. His speech was slightly dysarthric. He denied suicidal ideation, intent or plan. He did not express ideas reference, paranoid ideation or other symptoms of psychosis. Assessment: He continues to have symptoms of a mood disorder and/or cocaine withdrawal. He is acutely distressed and not appropriate for referral to a substance abuse treatment program at this time. He would benefit from a trial of antidepressant and is finally consented. Plan: Continue inpatient hospitalization. Safety precautions. Begin Zoloft 50 mg daily and titrated according to clinical response and tolerance. Continue Ativan 0.5 mg 3 times a day when necessary for anxiety. residential worker to collaborate with disposition aftercare. Arrange a family meeting prior to discharge. Encourage participation in therapeutic groups and activities. Evaluate clinical status response to treatment daily basis.
[2018-03-30] MEDS: LORazepam 0.5 MG TAB PO PRN (20:19)
[2018-03-31] MEDS: FLUTICASONE 50MCG/SPRAY NASAL 16GM EA NOSTRIL SCH (08:48)
[2018-03-31] MEDS: ARTIFICIAL TEARS-HYPROMELLOSE DROPS 15 ML BTL BOTH EYES PRN ×2 (08:49→14:51)
[2018-03-31] MEDS: METOPROLOL TARTRATE 50 MG TAB PO SCH (08:50)
[2018-03-31] MEDS: LOSARTAN 25 MG TAB PO SCH (08:51)
[2018-03-31] MEDS: SERTRALINE 50 MG TAB PO SCH (08:51)
[2018-03-31] MEDS: ASPIRIN 81 MG PO SCH (08:51)
[2018-03-31] MEDS: predniSONE 5 MG TAB PO SCH (08:51)
[2018-03-31] MEDS: CLOPIDOGREL 75 MG TAB PO SCH (08:51)
[2018-03-31] MEDS: SPIRONOLACTONE 25 MG TAB PO SCH (08:51)
[2018-03-31] MEDS: ATORVASTATIN 80 MG TAB PO SCH (08:51)
--- NOTE | 2018-03-31 14:40 | P.PN ---
Progress Note - Text Progress Note Date: 03/31/18 Clinical Problems: Cocaine withdrawal, cocaine abuse mood disorder, cocaine use disorder, cerebral palsy Interim history: I reviewed the medical record, interviewed the patient and discuss his treatment and treatment plan during team meeting. He stated that he is "feeling better" and that the "cloud" is lifting from his mind. He denied having thoughts of or suicide and he feels less depressed, hopeless and helpless. He tried to reach his daughter earlier today and he spoke with [facility] regarding residential substance abuse treatment services. Apparently he told access that he is in a psychiatric hospital and not appropriate for discharge. The access worker asked him to call the access line 24 hours before discharge to arrange substance abuse services. We talked about his money management issues. His payee covers all his expenses monthly and gives him $100 per week allowance. I suggested that he speak with his payee about establishing a bank account. Instead of the payee giving him $ 100 have the payee deposit the money in the bank account. He can then speak with the bank and arrange to limit his daily withdrawal. Mental status exam: He presented as a disheveled and unshaven 63-year-old male who had a facial asymmetry. He showed psychomotor retardation but no abnormal movements. His speech was spontaneous with increased volume. His affect was depressed and not reactive. He denied suicidal ideation or wishes. He denied homicidal ideation. He denied experiencing current feelings of hopelessness, helplessness or worthlessness. He did not express ideas reference or paranoid ideation. His thinking was concrete but his associations appeared coherent. He denied hallucinations and did not appear to be responding to internal stimuli. Assessment: He appears less depressed and distressed than on admission. He continues to perseverate about the risk for relapse if he has access to money. He would benefit from residential substance abuse treatment. Plan: Continue inpatient hospitalization. Continue suicide precautions. Continue Zoloft 50 mg daily and titrated according to clinical response and tolerance. Medical management as per recommendation of the medical coding specialist. prop worker to assist with discharge and aftercare. Encourage more personal responsibility in managing his own finances. Encouraged continued participation in therapeutic groups and activities. Evaluate clinical status response to treatment on a daily basis.
[2018-04-01] MEDS: SERTRALINE 50 MG TAB PO SCH (07:48)
[2018-04-01] MEDS: LOSARTAN 25 MG TAB PO SCH (07:48)
[2018-04-01] MEDS: FLUTICASONE 50MCG/SPRAY NASAL 16GM EA NOSTRIL SCH (07:48)
[2018-04-01] MEDS: ASPIRIN 81 MG PO SCH (07:48)
[2018-04-01] MEDS: CLOPIDOGREL 75 MG TAB PO SCH (07:48)
[2018-04-01] MEDS: predniSONE 5 MG TAB PO SCH (07:48)
[2018-04-01] MEDS: ATORVASTATIN 80 MG TAB PO SCH (07:48)
[2018-04-01] MEDS: ARTIFICIAL TEARS-HYPROMELLOSE DROPS 15 ML BTL BOTH EYES PRN (07:48)
[2018-04-01] MEDS: METOPROLOL TARTRATE 50 MG TAB PO SCH (07:49)
[2018-04-01] MEDS: SPIRONOLACTONE 25 MG TAB PO SCH (07:52)
--- NOTE | 2018-04-01 09:27 | P.PN ---
Progress Note - Text Progress Note Date: 04/01/18 Interval History: The patient presents alert, pleasant, and cooperative. There calmly seated without any agitated behavior. [he] reports that [his] mood is good. Affect is congruent and euthymic. [He] deny having any suicidal or homicidal ideation intent or plan. [He] denies any auditory or visual hallucinations. There is no evidence of any delusional thought content. [His] thought process is linear and goal-directed. [His] speech is fluent and nonpressured. [His] memory and concentration is grossly intact for the purposes of this session. He described feeling sad, hopeless, helpless and worthless. He feels guilty over his cocaine use and recent relapse to cocaine and ruminates over his recurrent struggle with cocaine use. However, he denied hearing accusatory or denunciatory voices or experiencing threatening visual hallucinations. He described thoughts of suicide and wishes that he were but denied suicidal intent or plan. He denied history of suicide attempts or gestures. She denied problems with sleep except when he is using cocaine. He describes subjective tension and worry but denied persistent anxiety that interfered with his ability to function. He denied periods of anxiety to the built up to crescendo suggestive of panic attacks. He denied obsessions or compulsions. He denied such psychotic symptoms as auditory, visual or olfactory hallucinations, ideas reference, thought insertion, thought control etc. Mental Status: [intact] Appearance/Attitude: [good] Behavior: [pleasant] Speech/Language: [speech impediment] Thought Process: [intact] Thought Content: [] Suicidal/Homicidal Ideation: [none] Sensorium/Cognition: [concrete] Mood/Affect: [depressed] Insight/Judgment: [fair] Assessment: [Major depressive-recurrent and acute exacerbation] Plan: [Continue medicatioons and treatment plan]
[2018-04-02] MEDS: ATORVASTATIN 80 MG TAB PO SCH (07:48)
[2018-04-02] MEDS: SERTRALINE 50 MG TAB PO SCH (07:48)
[2018-04-02] MEDS: LOSARTAN 25 MG TAB PO SCH (07:48)
[2018-04-02] MEDS: CLOPIDOGREL 75 MG TAB PO SCH (07:48)
[2018-04-02] MEDS: SPIRONOLACTONE 25 MG TAB PO SCH (07:48)
[2018-04-02] MEDS: FLUTICASONE 50MCG/SPRAY NASAL 16GM EA NOSTRIL SCH (07:48)
[2018-04-02] MEDS: ASPIRIN 81 MG PO SCH (07:49)
[2018-04-02] MEDS: predniSONE 5 MG TAB PO SCH (07:49)
[2018-04-02] MEDS: ARTIFICIAL TEARS-HYPROMELLOSE DROPS 15 ML BTL BOTH EYES PRN ×2 (07:53→16:32)
[2018-04-02] MEDS ORDERED: NON-FORMULARY DRUG (Etanercept [Enbrel] 50 MG) SQ SCH (09:00)
--- NOTE | 2018-04-02 10:12 | P.PN ---
Progress Note - Text Progress Note Date: 04/02/18 Progress Note - Text Progress Note Date: 04/01/18 Interval History: The patient presents alert, pleasant, and cooperative. There calmly seated without any agitated behavior. [he] reports that [his] mood is good. Affect is congruent and euthymic. [He] deny having any suicidal or homicidal ideation intent or plan. [He] denies any auditory or visual hallucinations. There is no evidence of any delusional thought content. [His] thought process is linear and goal-directed. [His] speech is fluent and nonpressured. [His] memory and concentration is grossly intact for the purposes of this session. He described feeling sad, hopeless, helpless and worthless. He feels guilty over his cocaine use and recent relapse to cocaine and ruminates over his recurrent struggle with cocaine use. However, he denied hearing accusatory or denunciatory voices or experiencing threatening visual hallucinations. He described thoughts of suicide and wishes that he were but denied suicidal intent or plan. He denied history of suicide attempts or gestures. She denied problems with sleep except when he is using cocaine. He describes subjective tension and worry but denied persistent anxiety that interfered with his ability to function. He denied periods of anxiety to the built up to [facility] suggestive of panic attacks. He denied obsessions or compulsions. He denied such psychotic symptoms as auditory, visual or olfactory hallucinations, ideas reference, thought insertion, thought control etc. Mental Status: [intact] Appearance/Attitude: [good] Behavior: [pleasant] Speech/Language: [speech impediment] Thought Process: [intact] Thought Content: [Normal] Suicidal/Homicidal Ideation: [none] Sensorium/Cognition: [concrete] Mood/Affect: [depressed] Insight/Judgment: [fair] Assessment: [Major depressive-recurrent and acute exacerbation; cocaine] Plan: [Continue medications and treatment plan will increase his Zoloft 100 mg at bedtime: Further understanding regarding the use of cocaine which worsens his mental status. He is somewhat concerned about his memory and discussed in detail about how depression and substance use is a major cofactor in worsening his memory]
[2018-04-02 18:54] LABS: Hemoglobin A1C 6.9 % (4.0-6.0)
[2018-04-03] MEDS: ATORVASTATIN 80 MG TAB PO SCH (08:08)
[2018-04-03] MEDS: LOSARTAN 25 MG TAB PO SCH (08:08)
[2018-04-03] MEDS: SPIRONOLACTONE 25 MG TAB PO SCH (08:08)
[2018-04-03] MEDS: CLOPIDOGREL 75 MG TAB PO SCH (08:08)
[2018-04-03] MEDS: FLUTICASONE 50MCG/SPRAY NASAL 16GM EA NOSTRIL SCH (08:08)
[2018-04-03] MEDS: ASPIRIN 81 MG PO SCH (08:08)
[2018-04-03] MEDS: METOPROLOL TARTRATE 50 MG TAB PO SCH (08:08)
[2018-04-03] MEDS: predniSONE 5 MG TAB PO SCH (08:08)
--- NOTE | 2018-04-03 09:59 | P.PN ---
Progress Note - Text Progress Note Date: 04/03/18 Progress Note - Text Progress Note Date: 04/03/18 Interval History: The patient presents alert, pleasant, and cooperative. There calmly seated without any agitated behavior. [he] reports that [his] mood is good. Affect is congruent and depressed. [He] deny having any suicidal or homicidal ideation intent or plan. [He] denies any auditory or visual hallucinations. There is no evidence of any delusional thought content. [His] thought process is linear and goal-directed. [His] speech is fluent and nonpressured. [His] memory and concentration is grossly intact for the purposes of this session. He is is hard of hearing with odd speech pattern. He described feeling sad, hopeless, helpless and worthless. He feels guilty over his cocaine use and recent relapse to cocaine and ruminates over his recurrent struggle with cocaine use. However, he denied hearing accusatory or denunciatory voices or experiencing threatening visual hallucinations. He described thoughts of suicide and wishes that he were but denied suicidal intent or plan. He denied history of suicide attempts or gestures. She denied problems with sleep except when he is using cocaine. He describes subjective tension and worry but denied persistent anxiety that interfered with his ability to function. He denied periods of anxiety to the built up to crescendo suggestive of panic attacks. He denied obsessions or compulsions. He denied such psychotic symptoms as auditory, visual or olfactory hallucinations, ideas reference, thought insertion, thought control etc. Mental Status: [intact] Appearance/Attitude: [good] Behavior: [pleasant] Speech/Language: [speech impediment] Thought Process: [intact] Thought Content: [Normal] Suicidal/Homicidal Ideation: [none] Sensorium/Cognition: [concrete] Mood/Affect: [depressed 6/10; anxiety 4-5/10] Insight/Judgment: [fair] Assessment: [Major depressive-recurrent and acute exacerbation; cocaine] Plan: [Increase medications Zolft 200 mg po qhs for depression and anxiety and treatment plan will increase his Zoloft 100 mg at bedtime: Further understanding regarding the use of cocaine which worsens his mental status. He is somewhat concerned about his memory and discussed in detail about how depression and substance use is a major cofactor in worsening his memory]
[2018-04-03] MEDS ORDERED: NON-FORMULARY DRUG (Etanercept [Enbrel] 50 MG) SQ SCH (15:00)
[2018-04-03] MEDS ORDERED: SERTRALINE 100 MG TAB PO SCH ×3 (21:00)
[2018-04-04] MEDS: LOSARTAN 25 MG TAB PO SCH (08:55)
[2018-04-04] MEDS: ASPIRIN 81 MG PO SCH (08:55)
[2018-04-04] MEDS: CLOPIDOGREL 75 MG TAB PO SCH (08:55)
[2018-04-04] MEDS: FLUTICASONE 50MCG/SPRAY NASAL 16GM EA NOSTRIL SCH (08:55)
[2018-04-04] MEDS: ATORVASTATIN 80 MG TAB PO SCH (08:55)
[2018-04-04] MEDS: SPIRONOLACTONE 25 MG TAB PO SCH (08:55)
[2018-04-04] MEDS: predniSONE 5 MG TAB PO SCH (08:55)
[2018-04-04] MEDS: METOPROLOL TARTRATE 50 MG TAB PO SCH (08:55)
[2018-04-04] MEDS: ARTIFICIAL TEARS-HYPROMELLOSE DROPS 15 ML BTL BOTH EYES PRN (08:57)
[2018-04-04] MEDS ORDERED: NON-FORMULARY DRUG (Etanercept [Enbrel] 50 MG) SQ SCH (09:00)
[2018-04-04] MEDS: METHOTREXATE SODIUM 2.5 MG TAB PO SCH (12:30)
--- NOTE | 2018-04-04 19:07 | PN ---
PROGRESS NOTE DATE OF SERVICE: 04/04/2018. SUBJECTIVE: Patient is seen, interviewed. Found in good spirits. He reports that he is feeling somewhat better. He said he is still feeling lonely and down. He is upset about his cocaine use and he promises that he would stay away from it and he will maintain his sobriety. He endorses some anhedonia, irritability, low energy, lack of motivation. At times feeling hopeless, but denies any suicidal or homicidal ideation. He denies hearing voices, seeing things. He has been med compliant, tolerating well and reporting no side effects. MENTAL STATUS EXAM: The patient is alert, awake, oriented x3. Has fair eye contact. Speech few word sentences. Mood dysphoric, anxious with congruent affect. Denies any suicidal or homicidal ideation. I did not see him responding to internal stimuli. Insight and judgment improving slowly and gradually. ASSESSMENT: Major depressive disorder, recurrent, severe, without psychotic features. PLAN OF TREATMENT: Continue to adjust medications accordingly. He has been taking Zoloft. We will continue to keep Zoloft as he has been responding well to the medication. Will continue to work with coping skills and supportive therapy. Encouraged to attend groups and meetings. MMCARLOS ALBERTOL / IJN: [id number] /
[2018-04-04] MEDS ORDERED: SERTRALINE 100 MG TAB PO SCH (21:00)
[2018-04-05] MEDS: predniSONE 5 MG TAB PO SCH (08:46)
[2018-04-05] MEDS: SPIRONOLACTONE 25 MG TAB PO SCH (08:47)
[2018-04-05] MEDS: METOPROLOL TARTRATE 50 MG TAB PO SCH (08:47)
[2018-04-05] MEDS: ATORVASTATIN 80 MG TAB PO SCH (08:47)
[2018-04-05] MEDS: LOSARTAN 25 MG TAB PO SCH (08:47)
[2018-04-05] MEDS: FLUTICASONE 50MCG/SPRAY NASAL 16GM EA NOSTRIL SCH (08:47)
[2018-04-05] MEDS: ASPIRIN 81 MG PO SCH (08:47)
[2018-04-05] MEDS: CLOPIDOGREL 75 MG TAB PO SCH (08:47)
[2018-04-05] MEDS: ARTIFICIAL TEARS-HYPROMELLOSE DROPS 15 ML BTL BOTH EYES PRN (08:49)
--- NOTE | 2018-04-05 12:23 | PN ---
PROGRESS NOTE Patient seen, interviewed. Found somewhat anxious and stressed out. He stated last night he took depression pill, which made him more jittery and shaky in his body and he thinks the medications are too strong. He was feeling was down. Other than that he has been going to groups and meetings. He is still feeling depressed and somewhat hopeless and helpless, but denies any suicidal or homicidal ideation. MENTAL STATUS EXAM: Patient is alert and oriented x4. Has fair eye contact. Speech few word sentences. Mood dysphoric. Anxious with congruent affect. No suicidal or homicidal ideation. I did not see him responding to internal stimuli. He is improving slowly and gradually. ASSESSMENT: Major depressive disorder, recurrent, severe, without psychotic features. PLAN: We will lower the Zoloft from 200 to 150 as it was increased from 100 to -200 a few days ago so we will lower it to 150 as the dose is too high and making him somewhat anxious and agitated. We will continue to monitor his behavior closely. TOÑO / BRITNIN: [id number] /
[2018-04-05] MEDS ORDERED: SERTRALINE 100 MG TAB PO SCH (20:00)
[2018-04-05] MEDS: SERTRALINE 50 MG TAB PO SCH (20:25)
[2018-04-06] MEDS: FLUTICASONE 50MCG/SPRAY NASAL 16GM EA NOSTRIL SCH (08:02)
[2018-04-06] MEDS: CLOPIDOGREL 75 MG TAB PO SCH (08:03)
[2018-04-06] MEDS: ASPIRIN 81 MG PO SCH (08:03)
[2018-04-06] MEDS: SPIRONOLACTONE 25 MG TAB PO SCH (08:03)
[2018-04-06] MEDS: LOSARTAN 25 MG TAB PO SCH (08:03)
[2018-04-06] MEDS: METOPROLOL TARTRATE 50 MG TAB PO SCH (08:03)
[2018-04-06] MEDS: ATORVASTATIN 80 MG TAB PO SCH (08:03)
[2018-04-06] MEDS: predniSONE 5 MG TAB PO SCH (08:03)
--- NOTE | 2018-04-06 10:19 | P.PN ---
Progress Note - Text Progress Note Date: 04/06/18 Interval History: The patient presents alert, pleasant, and cooperative. There calmly seated without any agitated behavior. [he] reports that [his] mood is has improved and talks more freely and appreciated decrease Zoloft. Affect is congruent and depressed 5/10. [He] deny having any suicidal or homicidal ideation intent or plan. [He] denies any auditory or visual hallucinations. There is no evidence of any delusional thought content. [His] thought process is linear and goal-directed. [His] speech is more fluent and nonpressured. [ His] memory and concentration is grossly intact for the purposes of this session. He is is hard of hearing with odd speech pattern. He described feeling sad, hopeless, helpless and worthless. He feels guilty over his cocaine use and recent relapse to cocaine and ruminates over his recurrent struggle with cocaine use. However, he denied hearing accusatory or denunciatory voices or experiencing threatening visual hallucinations. He described thoughts of suicide and wishes that he were but denied suicidal intent or plan. He denied history of suicide attempts or gestures. She denied problems with sleep except when he is using cocaine. He describes subjective tension and worry but denied persistent anxiety that interfered with his ability to function. He denied periods of anxiety to the built up to crescendo suggestive of panic attacks. He denied obsessions or compulsions. He denied such psychotic symptoms as auditory, visual or olfactory hallucinations, ideas reference, thought insertion, thought control etc. Mental Status: [intact] Appearance/Attitude: [good] Behavior: [pleasant] Speech/Language: [speech impediment] Thought Process: [intact] Thought Content: [Normal] Suicidal/Homicidal Ideation: [none] Sensorium/Cognition: [concrete] Mood/Affect: [depressed 6/10; anxiety 4-5/10] Insight/Judgment: [fair] Assessment: [Major depressive-recurrent and acute exacerbation; cocaine] Intellectual functioning as moderately impaired but has gradually been increasing during his hospitalization. Plan: [Decrease medications Zolft 150 mg po qhs for depression and anxiety .: Further understanding regarding the use of cocaine which worsens his mental status. He is somewhat concerned about his memory and discussed in detail about how depression and substance use is a major cofactor in worsening his memory. We will consider use a nuedexta but it is not on formulary at the hospital. We will consider use of ReVia to help him stop using cocaine since he tends to be impulsive and somewhat withdrawn at times. Will be important to have a structured outpatient therapy working on his issues of loneliness and low self-esteem.]
[2018-04-06] MEDS: ARTIFICIAL TEARS-HYPROMELLOSE DROPS 15 ML BTL BOTH EYES PRN (14:38)
[2018-04-06] MEDS: SERTRALINE 50 MG TAB PO SCH (20:09)
[2018-04-07] MEDS: METOPROLOL TARTRATE 50 MG TAB PO SCH (08:26)
[2018-04-07] MEDS: FLUTICASONE 50MCG/SPRAY NASAL 16GM EA NOSTRIL SCH (08:26)
[2018-04-07] MEDS: ATORVASTATIN 80 MG TAB PO SCH (08:26)
[2018-04-07] MEDS: LOSARTAN 25 MG TAB PO SCH (08:27)
[2018-04-07] MEDS: predniSONE 5 MG TAB PO SCH (08:27)
[2018-04-07] MEDS: SPIRONOLACTONE 25 MG TAB PO SCH (08:27)
[2018-04-07] MEDS: ASPIRIN 81 MG PO SCH (08:27)
[2018-04-07] MEDS: CLOPIDOGREL 75 MG TAB PO SCH (08:27)
[2018-04-07] MEDS: ARTIFICIAL TEARS-HYPROMELLOSE DROPS 15 ML BTL BOTH EYES PRN (08:28)
[2018-04-07 11:30] VITALS: BMI 32.6
[2018-04-07] MEDS: SERTRALINE 50 MG TAB PO SCH (20:44)
[2018-04-08] MEDS: CLOPIDOGREL 75 MG TAB PO SCH (08:26)
[2018-04-08] MEDS: ATORVASTATIN 80 MG TAB PO SCH (08:26)
[2018-04-08] MEDS: LOSARTAN 25 MG TAB PO SCH (08:26)
[2018-04-08] MEDS: SPIRONOLACTONE 25 MG TAB PO SCH (08:28)
[2018-04-08] MEDS: ASPIRIN 81 MG PO SCH (08:28)
[2018-04-08] MEDS: METOPROLOL TARTRATE 50 MG TAB PO SCH (08:28)
[2018-04-08] MEDS: FLUTICASONE 50MCG/SPRAY NASAL 16GM EA NOSTRIL SCH (08:29)
[2018-04-08] MEDS: predniSONE 5 MG TAB PO SCH (08:31)
[2018-04-08] MEDS: ARTIFICIAL TEARS-HYPROMELLOSE DROPS 15 ML BTL BOTH EYES PRN ×2 (12:02→18:43)
--- NOTE | 2018-04-08 12:16 | P.PN ---
Subjective Progress Note Date: 04/08/18 Principal diagnosis: MDD- severe, recurrent, cocaine use disorder Interval History: The patient presents alert, pleasant, and cooperative. There calmly seated without any agitated behavior. [he] reports that [his] mood is has improved and talks more freely and appreciated decrease Zoloft. Affect is congruent and depressed 2/10. [He] deny having any suicidal or homicidal ideation intent or plan. [He] denies any auditory or visual hallucinations. There is no evidence of any delusional thought content. [His] thought process is linear and goal-directed. [His] speech is more fluent and nonpressured. [ His] memory and concentration is grossly intact for the purposes of this session. He is is hard of hearing with odd speech pattern. MENTAL STATUS EXAM: He presented as a short, moderately obese disheveled and unshaven 63-year-old man. He was pleasant on approach and maintained eye contact. He had a facial asymmetry and a slow but steady gait. He had a distressed facial expression and cried intermittently during the interview. He was alert and oriented to person, place and time. He showed psychomotor retardation but no abnormal movements. His speech was dysarthic, spontaneous with the rate, rhythm and volume were consistent with his affect. His affect was depressed and at times intense and inappropriate. He expressed wishes but denied suicidal ideation, intent or plan. He denied homicidal ideation. He expressed such depressive cognitions as hopelessness helplessness and worthlessness he was in the context of his cocaine use and concerns of her relationship with his daughter. He perseverated about his cocaine use. He did not express clear ideas reference, paranoid ideation or delusional thoughts. His thinking was abstract and associations were coherent, logical and goal directed. He did not express clang associations, neologisms or blocking. He denied hallucinations and did not appear to be responding to internal stimuli. Global impression of intellect is average. He is aware of his illness and need for mental health treatment. IMPRESSIONS: He is a 63-year-old male who has a history of cocaine use disorder. He presented to the psychiatric unit with complaints of increased depression and thoughts of suicide in the context of continued use of cocaine and the threat of estrangement from his daughter and grandchildren. He described thoughts of suicide, hopelessness, helplessness and worthlessness but denies suicidal intent or plan. He recognized that he has a cocaine use problem and expressed an interest and reentering residential treatment program. He recognizes his depression but is ambivalent about starting a antidepressant medication. He expressed an interest in engaging in individual therapy/counseling. DIAGNOSIS Cocaine withdrawal, cocaine use disorder severe, cocaine-induced depressive disorder, rule out major depressive disorder, cerebral palsy He appears to be at stable.Consider [facility] in [place]. Objective - Vital Signs Vital signs: Vital Signs Temp 97.9 F 04/08/18 06:38 Pulse 78 04/08/18 06:38 Resp 18 04/08/18 06:38 BP 149/72 04/08/18 06:38 Pulse Ox 96 04/06/18 06:24 Intake & Output 04/07/18 04/08/18 04/08/18 18:59 06:59 18:59 Weight 91.7 kg - Labs CBC & Chem 7: 03/27/18 08:13 03/27/18 08:13
--- NOTE | 2018-04-08 12:43 | P.DS ---
Providers Date of admission: 03/26/18 20:43 Expected date of discharge: 04/08/18 Attending physician: Dandre Metz DO Consults: 03/26/18 21:24 Consult Physician Routine Consulting Provider: Osmin Bonds Consult Reason/Comments: H & P and medical care Do you want consulting provider notified?: Yes Primary care physician: Van Wells - Discharge Diagnosis(es) (1) Depression Current Visit: Yes Status: Acute Priority: Low (2) Cocaine abuse Current Visit: Yes Status: Acute Priority: Low (3) HTN (hypertension) Current Visit: No Status: Acute Priority: Low (4) Hyperlipemia Current Visit: No Status: Acute Priority: Low (5) Presence of stent in LAD coronary artery Current Visit: No Status: Acute Priority: Low Hospital Course: Identifying Information: IDENTIFYING DATA: The patient is a 63-year-old male who presented to the psychiatric unit voluntarily. HISTORY OF PRESENT ILLNESS: He complaints of depression and suicidal ideation in the context of relapse to cocaine use. He was acutely distressed and cried during the interview. He perseverated on his relationship with his daughter. Apparently his daughter told him that if he does not stop using cocaine she does not want him to have contact with his grandchildren. He was greatly distressed by this ultimatum. He pleaded for us to speak with his daughter and explained to her that addiction is a chronic relapsing condition for which he has no control. Chief Complaint and Reason for Hospitalization: [Depressed and suicidal] Course of Treatment: [He is hospitalized and stabilized on medication including a slow titration of Zoloft due to the fact he is very sensitive to medications maximum dose he can tolerate 150 mg of Zoloft at bedtime. Mental status examination time of discharge this is a pleasant 63-year-old male who is oriented person place and time and the reason for his admission. He is not depressed at the time of discharge and euthymic his anxiety is stable. He does not hear any voices does not see things and does not complain of auditory or visual hallucinations or any other thought disorder. He is a very good historian which is greatly improved during his hospitalization. His initial complaints include that he had difficulty and focus concentration and jerking movements which of all disappeared since she's been in the hospital.] Physical/Medical Condition on Discharge:[ Metabolically stable time of discharge ] Functional Condition on Discharge: [Is able to ambulate greater than 50 feet without assistance and is able to take care of himself and do his own ADLs] Discharge Medications: [Discharge medications as listed below] Number of Routinely Scheduled Antipsychotic Medication(s) Prescribed: [He hasn' t no antipsychotics at the time of discharge] Appropriate Justification for discharging the Patient on Two or More Antipsychotic Medications: [He has on only an antidepressant no antipsychotics] Discharge Diagnosis: [Major depressive disorder with anxiety and recent use of cocaine which is now in remission] IMPRESSIONS: He is a 63-year-old male who has a history of cocaine use disorder. He presented to the psychiatric unit with complaints of increased depression and thoughts of suicide in the context of continued use of cocaine and the threat of estrangement from his daughter and grandchildren. He described thoughts of suicide, hopelessness, helplessness and worthlessness but denies suicidal intent or plan. He recognized that he has a cocaine use problem and expressed an interest and reentering residential treatment program. He recognizes his depression but is ambivalent about starting a antidepressant medication. He expressed an interest in engaging in individual therapy/counseling. Risk Factors: [His risk factors include the use of cocaine and needs to be addressed and he needs to be referred to [facility] which I'll call to twice and not been able to reach the intake person why he's been in the room. Number of [facility] is [phone] he would benefit from a 30 day stay for substance use disorder] Recommendations/Follow-up/Aftercare: [Follow-up with this primary care physician and psychiatrist in the community and therapist] Patient Condition at Discharge: Stable Plan - Discharge Summary Discharge Rx Participant: No New Discharge Prescriptions: New Losartan [Cozaar] 25 mg PO DAILY tab Sertraline [Zoloft] 150 mg PO HS 30 Days #30 tab Continue Methotrexate Sodium [Methotrexate] 20 mg PO SA Aspirin 81 mg PO DAILY #30 chew Nitroglycerin Sl Tabs [Nitrostat] 0.4 mg SUBLINGUAL Q5M PRN #25 tab PRN Reason: Chest Pain Clopidogrel [Plavix] 75 mg PO DAILY Atorvastatin [Lipitor] 80 mg PO DAILY Fluticasone Nasal [place] [Flonase Nasal [place]] 1 spr EA NOSTRIL DAILY Metoprolol Tartrate [Lopressor] 50 mg PO DAILY Etanercept [Enbrel] 50 mg SQ Q7DAYS Spironolactone [Aldactone] 25 mg PO DAILY #30 tab Discontinued Losartan Potassium [Cozaar] 25 mg PO DAILY Loteprednol Etabonate [Lotemax] 5 ml OP MOWEFR Discharge Medication List Methotrexate Sodium [Methotrexate] 20 mg PO SA 10/10/14 [History] Aspirin 81 mg PO DAILY #30 chew 10/13/14 [Rx] Nitroglycerin Sl Tabs [Nitrostat] 0.4 mg SUBLINGUAL Q5M PRN #25 tab 10/13/14 [Rx ] Clopidogrel [Plavix] 75 mg PO DAILY 09/25/15 [History] Atorvastatin [Lipitor] 80 mg PO DAILY 09/26/15 [History] Fluticasone Nasal [place] [Flonase Nasal [place]] 1 spr EA NOSTRIL DAILY 11/25/16 [ History] Etanercept [Enbrel] 50 mg SQ Q7DAYS 03/26/18 [History] Metoprolol Tartrate [Lopressor] 50 mg PO DAILY 03/26/18 [History] Losartan [Cozaar] 25 mg PO DAILY tab 04/08/18 [Rx] Sertraline [Zoloft] 150 mg PO HS 30 Days #30 tab 04/08/18 [Rx] Spironolactone [Aldactone] 25 mg PO DAILY #30 tab 04/08/18 [Rx] Follow up Appointment(s)/Referral(s): Van Wells MD [Primary Care Provider] - 1-2 days Care Plan Goals (MU): Really needs to be followed up by substance abuse therapist and/[facility] by calling [facility] [phone] Discharge Disposition: HOME SELF-CARE
[2018-04-08] MEDS: SERTRALINE 50 MG TAB PO SCH (21:12)
[2018-04-09] MEDS: SPIRONOLACTONE 25 MG TAB PO SCH (08:29)
[2018-04-09] MEDS: ASPIRIN 81 MG PO SCH (08:29)
[2018-04-09] MEDS: FLUTICASONE 50MCG/SPRAY NASAL 16GM EA NOSTRIL SCH (08:29)
[2018-04-09] MEDS: ATORVASTATIN 80 MG TAB PO SCH (08:29)
[2018-04-09] MEDS: METOPROLOL TARTRATE 50 MG TAB PO SCH (08:29)
[2018-04-09] MEDS: CLOPIDOGREL 75 MG TAB PO SCH (08:29)
[2018-04-09] MEDS: LOSARTAN 25 MG TAB PO SCH (08:29)
[2018-04-09] MEDS: predniSONE 5 MG TAB PO SCH (08:29)
[2018-04-09] MEDS: ARTIFICIAL TEARS-HYPROMELLOSE DROPS 15 ML BTL BOTH EYES PRN (08:30)
--- NOTE | 2018-04-09 15:36 | P.PN ---
Subjective Progress Note Date: 04/09/18 Principal diagnosis: MDD- severe, recurrent, cocaine use disorder Interval History: The patient presents alert, but increased depression due to not be able to get SA long care and needed a great deal of counseling for him not to be suicidal which he just stated to me. , and cooperative. There calmly seated without any agitated behavior. [he] reports that [his] mood is has improved and talks more freely and appreciated decrease Zoloft. Affect is congruent and depressed 5/10. [He] deny having any suicidal but has ideation due to frustration or no homicidal ideation intent or plan. [He] denies any auditory or visual hallucinations. There is no evidence of any delusional thought content. [His] thought process is linear and goal-directed. [His] speech is more fluent and pressured. [His] memory and concentration is grossly intact for the purposes of this session. He is is hard of hearing with odd speech pattern but easliy became tearful and loud. MENTAL STATUS EXAM: He presented as a short, moderately obese disheveled and unshaven 63-year-old man. He was pleasant on approach and maintained eye contact. He had a facial asymmetry and a slow but steady gait. He had a distressed facial expression and cried intermittently during the interview. He was alert and oriented to person, place and time. He showed psychomotor retardation but no abnormal movements. His speech was dysarthic, spontaneous with the rate, rhythm and volume were consistent with his affect. His affect was depressed and at times intense and inappropriate. He expressed wishes but denied suicidal ideation, intent or plan. He denied homicidal ideation. He expressed such depressive cognitions as hopelessness helplessness and worthlessness he was in the context of his cocaine use and concerns of her relationship with his daughter. He perseverated about his cocaine use. He did not express clear ideas reference, paranoid ideation or delusional thoughts. His thinking was abstract and associations were coherent, logical and goal directed. He did not express clang associations, neologisms or blocking. He denied hallucinations and did not appear to be responding to internal stimuli. Global impression of intellect is average. He is aware of his illness and need for mental health treatment. IMPRESSIONS: He is a 63-year-old male who has a history of cocaine use disorder. He presented to the psychiatric unit with complaints of increased depression and thoughts of suicide in the context of continued use of cocaine and the threat of estrangement from his daughter and grandchildren. He described thoughts of suicide, hopelessness, helplessness and worthlessness but denies suicidal intent or plan. He recognized that he has a cocaine use problem and expressed an interest and reentering residential treatment program. He recognizes his depression but is ambivalent about starting a antidepressant medication and ws started on Zoloft. He expressed an interest in engaging in individual therapy/counseling. DIAGNOSIS Cocaine withdrawal, cocaine use disorder severe, cocaine-induced depressive disorder, rule out major depressive disorder, cerebral palsy He appears to be at stable.Consider [facility] in [place]. Justification for Inpatient Hospitalization - to stay here until tomorrow due increase ideation of self harm. depression resulting in significant loss of functioning.] [Dangerous to self with need for controlled environment.] [Emotional or behavioral conditions and complications requiring 24 hour medical and nursing care.] [Need for special drug therapy, or other therapeutic program requiring continuous hospitalization.] [Failure of social [Inability to meet basic life and health needs.] [Biomedical conditions and complications requiring 24 hour medical and nursing care.] [Recovery environment includes detrimental family structure, logical impediments to out-patient treatment.] [Failure of treatment at a lower level of care.] Objective - Vital Signs Vital signs: Vital Signs Temp 97.6 F 04/09/18 06:56 Pulse 116 H 04/09/18 08:28 Resp 20 04/09/18 08:28 BP 134/83 04/09/18 08:28 Pulse Ox 96 04/06/18 06:24 - Labs CBC & Chem 7: 03/27/18 08:13 03/27/18 08:13 Assessment and Plan (1) Depression Current Visit: Yes Status: Acute Priority: Low Code(s): F32.9 - MAJOR DEPRESSIVE DISORDER, SINGLE EPISODE, UNSPECIFIED SNOMED Code(s): 47538415 (2) Cocaine abuse Current Visit: Yes Status: Acute Priority: Low Code(s): F14.10 - COCAINE ABUSE, UNCOMPLICATED SNOMED Code(s): 86572351 (3) HTN (hypertension) Current Visit: No Status: Acute Priority: Low Code(s): I10 - ESSENTIAL ( PRIMARY) HYPERTENSION SNOMED Code(s): 08706849 (4) Hyperlipemia Current Visit: No Status: Acute Priority: Low Code(s): E78.5 - HYPERLIPIDEMIA, UNSPECIFIED SNOMED Code(s): 35529740 (5) Presence of stent in LAD coronary artery Current Visit: No Status: Acute Priority: Low Code(s): Z95.5 - PRESENCE OF CORONARY ANGIOPLASTY IMPLANT AND GRAFT SNOMED Code(s): [id number]
[2018-04-09] MEDS: SERTRALINE 50 MG TAB PO SCH (20:35)
[2018-04-10 06:33] VITALS: RESP 18; TEMP 98.1
[2018-04-10] MEDS: FLUTICASONE 50MCG/SPRAY NASAL 16GM EA NOSTRIL SCH (07:50)
[2018-04-10] MEDS: predniSONE 5 MG TAB PO SCH (07:50)
[2018-04-10] MEDS: ATORVASTATIN 80 MG TAB PO SCH (07:50)
[2018-04-10] MEDS: LOSARTAN 25 MG TAB PO SCH (07:50)
[2018-04-10] MEDS: ASPIRIN 81 MG PO SCH (07:50)
[2018-04-10] MEDS: ARTIFICIAL TEARS-HYPROMELLOSE DROPS 15 ML BTL BOTH EYES PRN (07:50)
[2018-04-10] MEDS: METOPROLOL TARTRATE 50 MG TAB PO SCH (07:51)
[2018-04-10] MEDS: CLOPIDOGREL 75 MG TAB PO SCH (07:51)
[2018-04-10] MEDS: SPIRONOLACTONE 25 MG TAB PO SCH (07:51)
[2018-04-10 07:53] VITALS: BP 125/85; PULSE 107
== END 2018-04-10 10:30 | DRG 885 ==
LOC: EC 02:45 → 3MHU 20:43
PROVIDERS: ADMIT Psychiatry & Neurology Psychiatry; ATTEND Psychiatry & Neurology Psychiatry
DX: F33.2 Major depressive disorder, recurrent severe without psychotic features (principal); F14.23 Cocaine dependence with withdrawal; R45.851 Suicidal ideations; E78.5 Hyperlipidemia, unspecified; F14.24 Cocaine dependence with cocaine-induced mood disorder; F41.9 Anxiety disorder, unspecified; G80.9 Cerebral palsy, unspecified; H91.90 Unspecified hearing loss, unspecified ear; I11.0 Hypertensive heart disease with heart failure; I50.9 Heart failure, unspecified; I25.10 Atherosclerotic heart disease of native coronary artery without angina pectoris; I25.2 Old myocardial infarction; M06.9 Rheumatoid arthritis, unspecified; Z63.8 Other specified problems related to primary support group; Z79.02 Long term (current) use of antithrombotics/antiplatelets; Z79.82 Long term (current) use of aspirin; Z79.899 Other long term (current) drug therapy; Z82.49 Family history of ischemic heart disease and other diseases of the circulatory system; Z83.3 Family history of diabetes mellitus; Z95.5 Presence of coronary angioplasty implant and graft; Z88.0 Allergy status to penicillin; R47.1 Dysarthria and anarthria
CPT/HCPCS: 80053; 80306; 81003; 82075; 82248; 83036; 84443; 85025; 99285

== ENCOUNTER → 2020-06-30 | Outpatient (CLI) | payer MEDICARE, OTHER ==
[2020-06-30 14:33] LABS: Basophils # (A) 0.1 k/uL (0-0.2); Basophils % (A) 1 %; Eosinophils # (A) 0.2 k/uL (0-0.7); Eosinophils % (A) 2 %; HCT 50.4 % (39.0-53.0); Lymphocytes # (A) 2.1 k/uL (1.0-4.8); Lymphocytes % (A) 28 %; MCHC 33.7 g/dL (31.0-37.0); MCV 94.9 fL (80.0-100.0); Mean Platelet Volume 6.4; Monocytes # (A) 0.5 k/uL (0-1.0); Monocytes % (A) 7 %; Neutrophils # (A) 4.5 k/uL (1.3-7.7); Neutrophils % (A) 61 %; Platelet Count 325 k/uL (150-450); RBC 5.31 m/uL (4.30-5.90); RDW 14.1 % (11.5-15.5); WBC 7.5 k/uL (3.8-10.6)
[2020-06-30 16:29] LABS: Erythrocyte Sedimentation Rate 8 mm/hr (0-15)
[2020-06-30 20:26] LABS: African American GFR (CKD) 81.2 (60.0-200.0); C Reactive Protein 1.1 mg/dL (0.0-0.8); Non-African American GFR(CKD) 70.1 (60.0-200.0)
== END | disposition home or self-care (01) ==
LOC: LABWHC1 13:44 → EDSTATUS 13:48
PROVIDERS: ATTEND Internal Medicine Rheumatology
DX: M06.9 Rheumatoid arthritis, unspecified (principal)
CPT/HCPCS: 36415; 82565; 84450; 84460; 85025; 85652; 86140

== ENCOUNTER 2020-12-22 22:04 | Inpatient (IN) | payer MEDICARE, MEDICAID ==
--- NOTE | 2020-12-22 22:56 | ED ---
Alcohol HPI - General Chief Complaint: Alcohol Stated Complaint: ETOH Time Seen by Provider: 12/22/20 22:13 Source: patient, EMS Mode of arrival: EMS Limitations: no limitations - History of Present Illness Initial Comments: This patient is a 65-year-old man who is brought by ambulance to be evaluate for intoxication. Patient reportedly had been drinking outside, lost his balance and then fell and then was having a hard time getting back up. The patient denies injury. He states he just does not drink regularly is having a hard time standing. Patient does complain of some depression but is not feeling suicidal. MD Complaint: alcohol intoxication Last Drink: just [employer] -: hour(s) Previous Visits for Alcohol Intoxication?: No Recent Trauma: No Associated Symptoms: depression Treatments Prior to Arrival: none - Related Data Home Medications Medication Instructions Recorded Confirmed metHOTREXate sodium [Methotrexate] 20 mg PO SA 10/10/14 03/26/18 Clopidogrel [Plavix] 75 mg PO DAILY 09/25/15 03/26/18 Atorvastatin [Lipitor] 80 mg PO DAILY 09/26/15 03/26/18 Fluticasone Nasal [place] [Flonase 1 spr EA NOSTRIL DAILY 11/25/16 03/26/18 Nasal [place]] Etanercept [Enbrel] 50 mg SQ Q7DAYS 03/26/18 03/26/18 Metoprolol Tartrate [Lopressor] 50 mg PO DAILY 03/26/18 03/26/18 Previous Rx's Medication Instructions Recorded Aspirin 81 mg PO DAILY #30 chew 10/13/14 Nitroglycerin Sl Tabs [Nitrostat] 0.4 mg SUBLINGUAL Q5M PRN #25 tab 10/13/14 Losartan [Cozaar] 25 mg PO DAILY tab 04/08/18 Sertraline [Zoloft] 150 mg PO HS 30 Days #30 tab 04/08/18 Spironolactone [Aldactone] 25 mg PO DAILY #30 tab 04/08/18 Allergies Allergy/AdvReac Type Severity Reaction Status Date / Time Penicillins Allergy Rash/Hives Verified 03/26/18 23:12 Review of Systems ROS Statement: Those systems with pertinent positive or pertinent negative responses have been documented in the HPI. ROS Other: All systems not noted in ROS Statement are negative. Constitutional: Denies: fever, chills Respiratory: Denies: cough, dyspnea Cardiovascular: Denies: chest pain, palpitations Gastrointestinal: Denies: abdominal pain, vomiting, diarrhea Musculoskeletal: Denies: back pain Skin: Denies: rash Neurological: Denies: headache, weakness Psychiatric: Reports: depression. Denies: auditory hallucinations, visual hallucinations, homicidal thoughts, suicidal thoughts Past Medical History Past Medical History: Coronary Artery Disease (CAD), Hyperlipidemia, Hypertension, Myocardial Infarction (non Q-wave), Rheumatoid Arthritis (RA) Additional Past Medical History / Comment(s): only 1 ear canal d/t defect Last Myocardial Infarction Date:: [facility] History of Any Multi-Drug Resistant Organisms: None Reported Past Surgical History: No Surgical Hx Reported, Ear Surgery, Heart Catheterization With Stent, Orthopedic Surgery Additional Past Surgical History / Comment(s): plate right leg, arthroscopic in the right ankle 3, sinus surgery, multiple reconstructive surgeries on face, bilateral eyelid surgery 23 times. Past Anesthesia/Blood Transfusion Reactions: No Reported Reaction Date of Last Stent Placement:: unknown Past Psychological History: Anxiety, Depression Smoking Status: Never smoker Past Alcohol Use History: Occasional Past Drug Use History: Cocaine - Past Family History Father Family Medical History: Coronary Artery Disease (CAD), Myocardial Infarction (HI) Additional Family Medical History / Comment(s): Father at age 61 from myocardial infarction. Mother Family Medical History: Diabetes Mellitus Additional Family Medical History / Comment(s): Mother in her 30s from complications of diabetes. Brother(s) Family Medical History: Diabetes Mellitus, Hypertension Additional Family Medical History / Comment(s): Patient has 2 brothers one with diabetes and one with hypertension. Sister(s) Additional Family Medical History / Comment(s): He has one sister with diabetes and one half-sister. He has 3 children with no major medical problems. General Exam Limitations: no limitations General appearance: alert, in no apparent distress Head exam: Present: atraumatic, normocephalic Neck exam: Present: normal inspection, full ROM. Absent: tenderness Respiratory exam: Present: normal lung sounds bilaterally. Absent: respiratory distress, wheezes, rales, rhonchi, stridor Cardiovascular Exam: Present: regular rate, normal rhythm, normal heart sounds. Absent: systolic murmur, diastolic murmur, rubs, gallop GI/Abdominal exam: Present: soft. Absent: distended, tenderness, guarding, rebound, rigid Back exam: Present: normal inspection. Absent: CVA tenderness (R), CVA tenderness (L), vertebral tenderness Neurological exam: Present: alert Psychiatric exam: Present: depressed. Absent: homicidal ideation, suicidal ideation Skin exam: Present: warm, dry, intact, normal color. Absent: rash Course Vital Signs 12/22/20 22:09 Temperature 98.0 F Pulse Rate 100 Respiratory 20 Rate Blood Pressure 126/87 O2 Sat by Pulse 93 L Oximetry Disposition Referrals: None,Stated [Primary Care Provider] - 1-2 days
[2020-12-23 06:15] LABS: Appearance,Urine Clear (Clear); Bilirubin,Urine Negative (Negative); Blood,Urine Negative (Negative); Color,Urine Light Yellow; Glucose,Urine (UA) 4+ (Negative); Ketones,Urine Negative (Negative); Leukocyte Esterase,Urine Negative (Negative); Nitrite,Urine Negative (Negative); Protein,Urine Negative (Negative); Specific Gravity,Urine 1.011 (1.001-1.035); Urobilinogen,Urine <2.0 mg/dL (<2.0)
[2020-12-23 06:37] LABS: Amphetamine Screen,Urine Not Detected (NotDetected); Barbiturate Screen,Urine Not Detected (NotDetected); Benzodiazepines Screen,Urine Not Detected (NotDetected); Cocaine Screen,Urine Not Detected (NotDetected); Methadone Screen, Urine Not Detected (NotDetected); Opiate Screen,Urine Not Detected (NotDetected); Oxycodone Screen, Urine Not Detected (NotDetected); Phencyclidine Screen,Urine Not Detected (NotDetected); Tricyclic Antidepressant,Urine Not Detected (NotDetected); Urn Cannabinoid Scrn Not Detected (NotDetected)
[2020-12-23] MEDS ORDERED: MAGNESIUM HYDROXIDE 2,400 MG/10 ML CUP PO PRN (06:53)
[2020-12-23] MEDS ORDERED: MAG HYDROX/AL HYDROX/SIMETH 30 ML CUP PO PRN (06:53)
[2020-12-23] MEDS ORDERED: LORazepam 1 MG TAB PO PRN (06:53)
[2020-12-23] MEDS ORDERED: ACETAMINOPHEN TAB 325 MG TAB PO PRN (06:53)
[2020-12-23] MEDS ORDERED: LORazepam 2 MG/ML INJ IM PRN (07:18)
[2020-12-23] MEDS ORDERED: HALOPERIDOL LACTATE 5 MG/ML 1 ML VIAL IM PRN (07:19)
[2020-12-23] MEDS ORDERED: metHOTREXate sodium 2.5 MG TAB PO SCH (09:00)
[2020-12-23] MEDS ORDERED: Etanercept [Enbrel] 50 MG/ML Syringe SQ SCH (09:00)
[2020-12-23] MEDS: FOLIC ACID 1 MG TAB PO SCH (10:01)
[2020-12-23] MEDS: METOPROLOL SUCCINATE (ER) 50 MG TAB.ER.24H PO SCH (10:01)
[2020-12-23] MEDS: ASPIRIN 81 MG PO SCH (10:01)
[2020-12-23] MEDS: Empagliflozin [Jardiance] PO SCH (10:13)
[2020-12-23] MEDS: NICOTINE 14MG/24HR PATCH TRANSDERM SCH (10:16)
[2020-12-23 11:44] LABS: Basophils # (A) 0.1 k/uL (0-0.2); Basophils % (A) 1 %; Eosinophils # (A) 0.2 k/uL (0-0.7); Eosinophils % (A) 2 %; HCT 49.4 % (39.0-53.0); HGB 15.8 gm/dL (13.0-17.5); Lymphocytes # (A) 2.1 k/uL (1.0-4.8); Lymphocytes % (A) 25 %; MCH 31.2 pg (25.0-35.0); MCHC 31.9 g/dL (31.0-37.0); MCV 97.8 fL (80.0-100.0); Macrocytosis Slight; Mean Platelet Volume 6.8; Monocytes # (A) 0.7 k/uL (0-1.0); Monocytes % (A) 8 %; Neutrophils # (A) 5.3 k/uL (1.3-7.7); Neutrophils % (A) 63 %; Platelet Count 267 k/uL (150-450); RBC 5.05 m/uL (4.30-5.90); RDW 15.1 % (11.5-15.5); WBC 8.5 k/uL (3.8-10.6)
[2020-12-23 11:53] LABS: Albumin 4.1 g/dL (3.5-5.0); Bilirubin,Unconjugated 0.8 mg/dL (0.0-1.1); Potassium 4.1 mmol/L (3.5-5.1); Total Bilirubin 0.8 mg/dL (0.2-1.3); Total Protein 6.8 g/dL (6.3-8.2)
[2020-12-23] MEDS: predniSONE 5 MG TAB PO SCH (12:50)
--- NOTE | 2020-12-23 13:29 | P.HP ---
Psychiatric H&P - . H&P Date: 12/23/20 History & Physical: Allergies Allergy/AdvReac Type Severity Reaction Status Date / Time Penicillins Allergy Rash/Hives Verified 12/23/20 06:58 Vital Signs Temp 97.8 F 12/23/20 10:10 Pulse 112 H 12/23/20 10:10 Resp 16 12/23/20 10:10 BP 125/73 12/23/20 10:10 Pulse Ox 98 12/23/20 08:20 Intake & Output 12/22/20 12/23/20 12/23/20 18:59 06:59 18:59 Weight 95.254 kg Laboratory Last Values WBC 8.5 k/uL (3.8-10.6) 12/23/20 11:22 RBC 5.05 m/uL (4.30-5.90) 12/23/20 11:22 Hgb 15.8 gm/dL (13.0-17.5) 12/23/20 11:22 Hct 49.4 % (39.0-53.0) 12/23/20 11:22 MCV 97.8 fL (80.0-100.0) 12/23/20 11:22 MCH 31.2 pg (25.0-35.0) 12/23/20 11:22 MCHC 31.9 g/dL (31.0-37.0) 12/23/20 11:22 RDW 15.1 % (11.5-15.5) 12/23/20 11:22 Plt Count 267 k/uL (150-450) 12/23/20 11:22 MPV 6.8 12/23/20 11:22 Neutrophils % 63 % 12/23/20 11:22 Lymphocytes % 25 % 12/23/20 11:22 Monocytes % 8 % 12/23/20 11:22 Eosinophils % 2 % 12/23/20 11:22 Basophils % 1 % 12/23/20 11:22 Neutrophils # 5.3 k/uL (1.3-7.7) 12/23/20 11:22 Lymphocytes # 2.1 k/uL (1.0-4.8) 12/23/20 11:22 Monocytes # 0.7 k/uL (0-1.0) 12/23/20 11:22 Eosinophils # 0.2 k/uL (0-0.7) 12/23/20 11:22 Basophils # 0.1 k/uL (0-0.2) 12/23/20 11:22 Macrocytosis Slight 12/23/20 11:22 Sodium 139 mmol/L (137-145) 12/23/20 11:22 Potassium 4.1 mmol/L (3.5-5.1) 12/23/20 11:22 Chloride 104 mmol/L (98-107) 12/23/20 11:22 Carbon Dioxide 28 mmol/L (22-30) 12/23/20 11:22 Anion Gap 7 mmol/L 12/23/20 11:22 BUN 14 mg/dL (9-20) 12/23/20 11:22 Creatinine 1.13 mg/dL (0.66-1.25) 12/23/20 11:22 Est GFR (CKD-EPI)AfAm 79 (>60 ml/min/1.73 sqM) 12/23/20 11:22 Est GFR (CKD-EPI)NonAf 68 (>60 ml/min/1.73 sqM) 12/23/20 11:22 Glucose 96 mg/dL (74-99) 12/23/20 11:22 Calcium 9.0 mg/dL (8.4-10.2) 12/23/20 11:22 Total Bilirubin 0.8 mg/dL (0.2-1.3) 12/23/20 11:22 Conjugated Bilirubin 0.0 mg/dL (0.0-0.3) 12/23/20 11:22 Unconjugated Bilirubin 0.8 mg/dL (0.0-1.1) 12/23/20 11:22 Delta Bilirubin 0.0 mg/dL (0.0-0.2) 12/23/20 11:22 AST 40 U/L (17-59) 12/23/20 11:22 ALT 40 U/L (4-49) 12/23/20 11:22 Alkaline Phosphatase 82 U/L (38-126) 12/23/20 11:22 Total Protein 6.8 g/dL (6.3-8.2) 12/23/20 11:22 Albumin 4.1 g/dL (3.5-5.0) 12/23/20 11:22 TSH 0.720 mIU/L (0.465-4.680) 12/23/20 11:22 Urine Color Light Yellow 12/23/20 05:41 Urine Appearance Clear (Clear) 12/23/20 05:41 Urine pH 5.0 (5.0-8.0) 12/23/20 05:41 Ur Specific [place] 1.011 (1.001-1.035) 12/23/20 05:41 Urine Protein Negative (Negative) 12/23/20 05:41 Urine Glucose (UA) 4+ (Negative) H 12/23/20 05:41 Urine Ketones Negative (Negative) 12/23/20 05:41 Urine Blood Negative (Negative) 12/23/20 05:41 Urine Nitrite Negative (Negative) 12/23/20 05:41 Urine Bilirubin Negative (Negative) 12/23/20 05:41 Urine Urobilinogen <2.0 mg/dL (<2.0) 12/23/20 05:41 Ur Leukocyte Esterase Negative (Negative) 12/23/20 05:41 Urine Opiates Screen Not Detected (NotDetected) 12/23/20 05:41 Ur Oxycodone Screen Not Detected (NotDetected) 12/23/20 05:41 Urine Methadone Screen Not Detected (NotDetected) 12/23/20 05:41 Ur Propoxyphene Screen Not Detected (NotDetected) 12/23/20 05:41 Ur Barbiturates Screen Not Detected (NotDetected) 12/23/20 05:41 U Tricyclic Antidepress Not Detected (NotDetected) 12/23/20 05:41 Ur Phencyclidine Scrn Not Detected (NotDetected) 12/23/20 05:41 Ur Amphetamines Screen Not Detected (NotDetected) 12/23/20 05:41 U Methamphetamines Scrn Not Detected (NotDetected) 12/23/20 05:41 U Benzodiazepines Scrn Not Detected (NotDetected) 12/23/20 05:41 Urine Cocaine Screen Not Detected (NotDetected) 12/23/20 05:41 U Marijuana (THC) Screen Not Detected (NotDetected) 12/23/20 05:41 Coronavirus (PCR) Not Detected (Not Detectd) 12/23/20 05:47 12/23/20 13:11 Reason for admission: This patient stated that he got drunk last night and was feeling very depressed and subsequently broke down and was admitted to Hospital. History of present illness: This patient stated that he has been feeling depressed all his life. He feels sad and cannot sleep and starts drinking alcohol. He has difficulty hearing and stated he can only hear from left here but he is able to communicate well when spoken loud. Past history: This patient stated that that he has been in rehabilitation centers and psychiatric hospitals in the past. He stated he was at [facility] and some other hospitals. He stated he does not follow- up with the recommendations because he does not believe in psychiatric treatment. He stated that mental illness has a stigma and he does not want to have any stigma. Family history: He stated that there are a lot of people in his family who have problems with attitude. He denies any history of suicide in the family. He denies any history of alcohol or drug abuse in the family. Medical history: He stated his mother was diabetic but denies any other medical problems himself or in the family. He has difficulty hearing from his right ear. Social history: He stated that he was raised by his father because his mother when he was only 7 years old. He stated he had a hard time learning anything in the school and could not finish his high school. He is unemployed. Medication history: He stated he does not believe in medication because a mental illness is a stigma and he does not want to stigmatize himself with psychotropic medication. Substance abuse history: He stated he drinks alcohol 2 or 3 times per week he stated he was smoking crack cocaine 2 or 3 weeks ago. He denied abuse of any other drugs. Suicidal or homicidal thoughts: He denies having any suicidal thoughts now or in the past. Legal history: He denied any problems with law or police. ALLERGIES: He stated he is ALLERGIC to penicillin. Mental status examination: This patient has a very shaggy appearance and his hygiene and grooming is extremely poor. He has difficulty hearing and has to be spoken loud for him to communicate with me. His mood and affect is depressed. His behavior is uncooperative and he will not accept any mental health treatment because it is a stigmatizing for him. He denies having any auditory visual or any other types of hallucinations or any delusions. He is quite circumstantial and tangential. He is alert and oriented to time place and person. He was able to do similarities and differences between common objects and was able to interpret simple proverbs. His insight is poor and his judgment is impaired. He has poor impulse control. His memory and other cognitive functions are intact. Diagnostic impression: Major depression recurrent severe with suicidal thoughts Alcohol abuse Cocaine abuse Treatment recommendations: This patient will be prescribed antidepressants and I discussed the risks and benefits of that. He however stated that medication is a stigmatizing and he will not take it. I will do a clinical certification if he does not cooperate.
[2020-12-23 18:14] LABS: Hemoglobin A1C 6.6 % (4.0-6.0)
--- NOTE | 2020-12-23 23:49 | P.CONS ---
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 Patient was admitted to the mental health unit where he was seen and evaluated. The patient reports that due to his significant comorbid conditions, that he has been finding it difficult to cope. He denied having any active plan of hurting himself. He reports struggling with alcohol abuse along with polysubstance abuse. He also reports struggling with his defects and being alone and notes that his family and friends have rejected him. He denied chest pain, shortness of breath, fever, chills, cough. Denied nausea, vomiting, abdominal pain, diarrhea. Laboratory evaluation was reviewed. Review of systems: Pertinent positives and negatives as discussed in HPI, a complete review of systems was performed and all other systems are negative. Physical examination: General: non toxic, no distress, appears at stated age, obese Derm: no unusual rashes/lesions no unusual ecchymoses, warm, dry Head: atraumatic, normocephalic, symmetric Eyes: EOMI, no lid lag, anicteric sclera, pupils equal round reactive to light ENT: Nose and ears atraumatic, no thrush, no pharyngeal erythema Neck: No thyromegaly, no cervical lymphadenopathy, trachea midline, supple Mouth: no lip lesion, mucus membranes moist Cardiovascular: S1S2 reg, no murmur, positive posterior tibial pulse bilateral, no edema, capillary refill less than 2 seconds Lungs: CTA bilateral, no rhonchi, no rales , no accessory muscle use Abdominal: soft, nontender to palpation, no guarding, no appreciable or ganomegaly, normal bowel sounds Ext: no gross muscle atrophy, muscle strength 5 out of 5 in all 4 extremities grossly, no contractures, Neuro: Right facial paralysis, CN II-XII otherwise intake, light touch intact all 4 extremities, finger to nose within normal limits, Psych: Alert, oriented, depressed affect Assessment/plan Chronic conditions: Coronary artery disease, systolic CHF, hypertension, hyperlipidemia, type II DM -Continue with home meds -A1c 6.6 Polysubstance abuse -Advised on importance of cessation -Urine toxicology unremarkable in the emergency room Self-reported EtOH abuse -Patient reports drinking a few beers a couple times a week socially Depression with suicidal ideation -As per psychiatry Past Medical History Past Medical History: Coronary Artery Disease (CAD), Hyperlipidemia, Hypertension, Myocardial Infarction (non Q-wave), Rheumatoid Arthritis (RA) Additional Past Medical History / Comment(s): only 1 ear canal d/t defect Last Myocardial Infarction Date:: [facility] History of Any Multi-Drug Resistant Organisms: None Reported Past Surgical History: No Surgical Hx Reported, Ear Surgery, Heart Catheterization With Stent, Orthopedic Surgery Additional Past Surgical History / Comment(s): plate right leg, arthroscopic in the right ankle 3, sinus surgery, multiple reconstructive surgeries on face, bilateral eyelid surgery 23 times. Past Anesthesia/Blood Transfusion Reactions: No Reported Reaction Date of Last Stent Placement:: unknown Smoking Status: Never smoker - Past Family History Father Family Medical History: Coronary Artery Disease (CAD), Myocardial Infarction (MD) Additional Family Medical History / Comment(s): Father at age 61 from myocardial infarction. Mother Family Medical History: Diabetes Mellitus Additional Family Medical History / Comment(s): Mother in her 30s from complications of diabetes. Brother(s) Family Medical History: Diabetes Mellitus, Hypertension Additional Family Medical History / Comment(s): Patient has 2 brothers one with diabetes and one with hypertension. Sister(s) Additional Family Medical History / Comment(s): He has one sister with diabetes and one half-sister. He has 3 children with no major medical problems. Medications and Allergies Home Medications Medication Instructions Recorded Confirmed Type metHOTREXate sodium [Methotrexate] 20 mg PO SA 10/10/14 12/23/20 History Aspirin 81 mg PO DAILY #30 chew 10/13/14 12/23/20 Rx Nitroglycerin Sl Tabs [Nitrostat] 0.4 mg SUBLINGUAL Q5M PRN #25 tab 10/13/14 12/23/20 Rx Atorvastatin [Lipitor] 80 mg PO DAILY 09/26/15 12/23/20 History Etanercept [Enbrel] 50 mg SQ SA 03/26/18 12/23/20 History Spironolactone [Aldactone] 25 mg PO DAILY #30 tab 04/08/18 12/23/20 Rx Empagliflozin [Jardiance] 10 mg PO DAILY 12/22/20 12/23/20 History Folic Acid 1 mg PO DAILY 12/22/20 12/23/20 History Metoprolol Succinate [Toprol XL] 50 mg PO DAILY 12/22/20 12/23/20 History predniSONE 5 mg PO DAILY 12/22/20 12/23/20 History Allergies Allergy/AdvReac Type Severity Reaction Status Date / Time Penicillins Allergy Rash/Hives Verified 12/23/20 06:58 Physical Exam Vitals: Vital Signs Temp Pulse Pulse Resp BP BP Pulse Ox 12/23/20 10:10 97.8 F 112 H 16 125/73 12/23/20 08:20 98.4 F 94 18 123/90 98 Results CBC & Chem 7: 12/23/20 11:22 12/23/20 11:22 Labs: Abnormal Lab Results - Last 24 Hours (Table) 12/23/20 12/23/20 Range/Units 05:41 11:22 Hemoglobin A1c 6.6 H (4.0-6.0) % Urine Glucose (UA) 4+ H (Negative)
[2020-12-24] MEDS: METOPROLOL SUCCINATE (ER) 50 MG TAB.ER.24H PO SCH (08:51)
[2020-12-24] MEDS: ASPIRIN 81 MG PO SCH (08:52)
[2020-12-24] MEDS: FOLIC ACID 1 MG TAB PO SCH (08:52)
[2020-12-24] MEDS: ATORVASTATIN 80 MG TAB PO SCH (08:52)
[2020-12-24] MEDS: NICOTINE 14MG/24HR PATCH TRANSDERM SCH (08:53)
[2020-12-24] MEDS: SPIRONOLACTONE 25 MG TAB PO SCH (08:53)
[2020-12-24] MEDS: predniSONE 5 MG TAB PO SCH (08:53)
[2020-12-24] MEDS: SERTRALINE 50 MG TAB PO SCH (08:54)
[2020-12-24] MEDS ORDERED: ERGOCALCIFEROL 1,250 MCG (50,000 IU) CAPSULE PO SCH (10:00)
[2020-12-24] MEDS: ARTIFICIAL TEARS-HYPROMELLOSE DROPS 15 ML BTL BOTH EYES PRN (10:09)
[2020-12-24] MEDS: Empagliflozin [Jardiance] PO SCH (10:10)
[2020-12-24] MEDS ORDERED: Etanercept [Enbrel] 50 MG/ML Syringe SQ SCH (11:00)
[2020-12-24] MEDS: IBUPROFEN 400 MG TAB PO PRN (13:41)
--- NOTE | 2020-12-24 13:41 | P.PN ---
Progress Note - Text Progress Note Date: 12/24/20 Interval History: Patient was seen in the room and was directable and agreeable to speak with com writer. This patient was admitted to Hospital with severe depression and was wanting to with overdose of alcohol. Patient denies any auditory, visual hallucinations and denies any paranoia or delusions. Patient denies any side effects from the medications and has been compliant with meds. Mental Status Exam: General Appearance: Patient appears to be stated age Behavior: Patient is calm without any agitated behavior. Speech: Speech is low in volume, monotonous and monosyllable Mood/Affect: Mood and affect is depressed Suicidality/Homicidality: Patient is a high risk for suicidal behavior Perceptions: Patient denies any visual hallucinations and denies any auditory hallucinations Though content/process: There is no evidence of any delusional thought content and thought process is linear and goal-directed. Memory and concentration: His ability to concentrate on task is poor and memory is intact Judgment and insight: His insight is poor and judgment is impaired Assessment This patient was admitted because of severe depression. He has history of noncompliance with treatment. He maintains status quo Plan: -Patient continues to meet criteria for inpatient psychiatric admission for symptom stabilization and safety. -Medications: Continue medications as before -When necessary Ativan and Haldol for agitation/aggression. -SW on board for discharge planning. Encouraged the patient to participate in milieu.
[2020-12-24] MEDS ORDERED: IBUPROFEN 400 MG TAB PO SCH (16:00)
[2020-12-25 08:09] LABS: Glucose,Whole Blood 90 mg/dL (75-99)
[2020-12-25] MEDS: SPIRONOLACTONE 25 MG TAB PO SCH (08:50)
[2020-12-25] MEDS: FOLIC ACID 1 MG TAB PO SCH (08:50)
[2020-12-25] MEDS: predniSONE 5 MG TAB PO SCH (08:50)
[2020-12-25] MEDS: SERTRALINE 50 MG TAB PO SCH (08:50)
[2020-12-25] MEDS: ATORVASTATIN 80 MG TAB PO SCH (08:50)
[2020-12-25] MEDS: METOPROLOL SUCCINATE (ER) 50 MG TAB.ER.24H PO SCH (08:50)
[2020-12-25] MEDS: ASPIRIN 81 MG PO SCH (08:50)
[2020-12-25] MEDS: NICOTINE 14MG/24HR PATCH TRANSDERM SCH (08:52)
[2020-12-25] MEDS: Empagliflozin [Jardiance] PO SCH (08:52)
[2020-12-25] MEDS: ARTIFICIAL TEARS-HYPROMELLOSE DROPS 15 ML BTL BOTH EYES PRN (08:56)
--- NOTE | 2020-12-25 12:06 | P.PN ---
Progress Note - Text Progress Note Date: 12/25/20 Interval History: Patient was seen wandering the hallways and was directable and agreeable to speak with group underwriter in the office. The patient reports that he has been feeling upset stomach and attributes this to new medications he has been taking. The patient was started on vitamin D and Zoloft on the unit. The patient was informed that Zoloft may contribute to an upset stomach but that this side effect will eventually go away. The patient however wishes to try another m edication. He does endorse that he has been feeling increasingly depressed, anxious, and suicidal, which is worsened due to his alcohol use. The patient reports that he drinks heavily once a week. He denies any daily alcohol use. He is currently not reporting any suicidal or homicidal ideation, intention, and/or plan. He is not reporting any auditory or visual hallucinations. He is open to trialing Cymbalta for management of his depression with the added benefit of managing his pain. He reports no significant issues with sleep or appetite. Mental Status Exam: General Appearance: Patient appears to be stated age is alert, directable, and cooperative. The patient does appear to have asymmetry of his face which she attributes to a defect. Behavior: Patient is calmly seated without any agitated behavior. The patient is only able to hear out of his left ear. Psychomotor activity appears slightly elevated. Speech: Patient's speech is fluent and nonpressured. Loud in volume, spontaneous, hyperverbal at times but interruptible. Mood/Affect: Mood is depressed and anxious, affect is nervous. Suicidality/Homicidality: Patient denies having any suicidal or homicidal ideation intent or plan. Perceptions: Patient denies any visual hallucinations and denies any auditory hallucinations Though content/process: There is no evidence of any delusional thought content and thought process is linear and goal-directed. Memory and concentration: AOX3, grossly intact for the purposes of this session Judgment and insight: Improving mildly Vital Signs Temp 97.4 F L 12/25/20 06:40 Pulse 88 12/25/20 06:40 Resp 16 12/25/20 06:40 BP 164/95 12/25/20 06:40 Pulse Ox 98 12/23/20 08:20 Intake & Output 12/24/20 12/25/20 12/25/20 18:59 06:59 18:59 Weight 91.2 kg Assessment Major depressive disorder, recurrent, severe Alcohol abuse Cocaine abuse Plan: -Patient continues to meet criteria for inpatient psychiatric admission for symptom stabilization and safety. Patient has signed adult voluntary form and medication consent and was placed in patient's chart. -Medications: Discontinue Zoloft. Per patient preference to just side effects. Start Cymbalta 30 mg by mouth twice a day for depression/pain -When necessary Ativan and Haldol for agitation/aggression. -NRT - nicotine patch -SW on board for discharge planning. Encouraged the patient to participate in milieu.
[2020-12-25 13:14] LABS: Glucose,Whole Blood 102 mg/dL (75-99)
[2020-12-25] MEDS: IBUPROFEN 400 MG TAB PO PRN (17:13)
[2020-12-25 18:16] LABS: Glucose,Whole Blood 90 mg/dL (75-99)
[2020-12-25 20:11] LABS: Glucose,Whole Blood 156 mg/dL (75-99)
[2020-12-25] MEDS: DULoxetine HCL 30 MG CAPSULE.DR PO SCH (21:41)
[2020-12-26 04:53] LABS: Glucose,Whole Blood 98 mg/dL (75-99)
[2020-12-26 07:41] LABS: Glucose,Whole Blood 90 mg/dL (75-99)
[2020-12-26] MEDS: NICOTINE 14MG/24HR PATCH TRANSDERM SCH (08:49)
[2020-12-26] MEDS: METOPROLOL SUCCINATE (ER) 50 MG TAB.ER.24H PO SCH (08:50)
[2020-12-26] MEDS: Empagliflozin [Jardiance] PO SCH (08:50)
[2020-12-26] MEDS: SPIRONOLACTONE 25 MG TAB PO SCH (08:51)
[2020-12-26] MEDS: FOLIC ACID 1 MG TAB PO SCH (08:51)
[2020-12-26] MEDS: ATORVASTATIN 80 MG TAB PO SCH (08:51)
[2020-12-26] MEDS: ASPIRIN 81 MG PO SCH (08:52)
[2020-12-26] MEDS: predniSONE 5 MG TAB PO SCH (08:52)
[2020-12-26] MEDS: DULoxetine HCL 30 MG CAPSULE.DR PO SCH (08:52)
[2020-12-26] MEDS: ARTIFICIAL TEARS-HYPROMELLOSE DROPS 15 ML BTL BOTH EYES PRN (08:53)
--- NOTE | 2020-12-26 11:38 | P.PN ---
Progress Note - Text Progress Note Date: 12/26/20 Interval History: Patient was seen wandering the hallways and was directable and agreeable to speak with senior medical writer in the office. The patient's primary concern today is with another peer in the milieu. He reports that this peer has been confrontational, and even going through this patient's belongings. He expresses significant anger towards this peer. The patient states he feels overwhelmed with the stress in the outpatient setting ontop of the stress he has been experiencing here due to this peer. Despite this, he denies any suicidal or homicidal ideation, intention, and/or plan. He reports no auditory or visual hallucinations. He reports that he has difficulty taking medications multiple times per day and would prefer to take medications once a day. The patient reports no issues with appetite but states he has difficulty sleeping. He reports it takes him a few h ours to fall asleep. He has been adherent with his medications and is not reporting any side effects at this time. Mental Status Exam: General Appearance: Patient appears to be stated age is alert, directable, and cooperative. The patient does appear to have asymmetry of his face which she attributes to a defect. Behavior: Patient is calmly seated without any agitated behavior. The patient is only able to hear out of his left ear. Psychomotor activity appears normal. Speech: Patient's speech is fluent and nonpressured. Mood/Affect: Mood is "angry." Affect is mood congruent, upset and angry. Suicidality/Homicidality: Patient denies having any suicidal or homicidal ideation intent or plan. Perceptions: Patient denies any visual hallucinations and denies any auditory hallucinations Though content/process: There is no evidence of any delusional thought content and thought process is linear and goal-directed. Memory and concentration: AOX3, grossly intact for the purposes of this session Judgment and insight: Improving mildly Vital Signs Temp 96.5 F L 12/26/20 09:45 Pulse 112 H 12/26/20 09:45 Resp 18 12/26/20 09:45 BP 127/89 12/26/20 09:45 Pulse Ox 92 L 12/26/20 04:54 Intake & Output 12/25/20 12/26/20 12/26/20 18:59 06:59 18:59 Weight 91.2 kg Assessment Major depressive disorder, recurrent, severe Alcohol abuse Cocaine abuse Plan: -Patient continues to meet criteria for inpatient psychiatric admission for symptom stabilization and safety. Patient has signed adult voluntary form and medication consent and was placed in patient's chart. -Medications: Change cymbalta to 60 mg daily for depression. Start Abilify 2.5 mg daily for mood stabilization/augmentation. -When necessary Ativan and Haldol for agitation/aggression. -NRT - nicotine patch -SW on board for discharge planning. Encouraged the patient to participate in milieu.
[2020-12-26 12:45] LABS: Glucose,Whole Blood 105 mg/dL (75-99)
[2020-12-26 17:45] LABS: Glucose,Whole Blood 89 mg/dL (75-99)
[2020-12-27 07:53] LABS: Glucose,Whole Blood 91 mg/dL (75-99)
[2020-12-27] MEDS: ATORVASTATIN 80 MG TAB PO SCH (08:52)
[2020-12-27] MEDS: ASPIRIN 81 MG PO SCH (08:52)
[2020-12-27] MEDS: DULoxetine HCL 60 MG CAPSULE.DR PO SCH (08:52)
[2020-12-27] MEDS: predniSONE 5 MG TAB PO SCH (08:53)
[2020-12-27] MEDS: METOPROLOL SUCCINATE (ER) 50 MG TAB.ER.24H PO SCH (08:53)
[2020-12-27] MEDS: FOLIC ACID 1 MG TAB PO SCH (08:53)
[2020-12-27] MEDS: SPIRONOLACTONE 25 MG TAB PO SCH (08:53)
[2020-12-27] MEDS: ARIPiprazole 5 MG TAB PO SCH (08:53)
[2020-12-27] MEDS: Empagliflozin [Jardiance] PO SCH (08:54)
[2020-12-27 12:59] LABS: Glucose,Whole Blood 82 mg/dL (75-99)
[2020-12-27] MEDS: ARTIFICIAL TEARS-HYPROMELLOSE DROPS 15 ML BTL BOTH EYES PRN (13:35)
[2020-12-27 17:58] LABS: Glucose,Whole Blood 123 mg/dL (75-99)
[2020-12-28 07:19] VITALS: BP 133/84; PULSE 78; RESP 18; TEMP 97.1
[2020-12-28 07:56] LABS: Glucose,Whole Blood 94 mg/dL (75-99)
[2020-12-28] MEDS: predniSONE 5 MG TAB PO SCH (08:35)
[2020-12-28] MEDS: ATORVASTATIN 80 MG TAB PO SCH (08:35)
[2020-12-28] MEDS: ASPIRIN 81 MG PO SCH (08:35)
[2020-12-28] MEDS: FOLIC ACID 1 MG TAB PO SCH (08:35)
[2020-12-28] MEDS: SPIRONOLACTONE 25 MG TAB PO SCH (08:36)
[2020-12-28] MEDS: Empagliflozin [Jardiance] PO SCH (08:36)
[2020-12-28] MEDS: ARIPiprazole 5 MG TAB PO SCH (08:36)
[2020-12-28] MEDS: DULoxetine HCL 60 MG CAPSULE.DR PO SCH (08:36)
[2020-12-28] MEDS: METOPROLOL SUCCINATE (ER) 50 MG TAB.ER.24H PO SCH (08:37)
--- NOTE | 2020-12-28 10:31 | P.DS ---
Providers Date of admission: 12/23/20 06:44 Expected date of discharge: 12/28/20 Attending physician: Wicho Mendez MD Consults: 12/23/20 06:53 Consult Physician Routine Consulting Provider: Osmin Bonds Consult Reason/Comments: For H & P for Medical Follow Up Do you want consulting provider notified?: Yes Primary care physician: Stated None - Discharge Diagnosis(es) (1) Major depressive disorder, recurrent Current Visit: Yes Status: Acute Priority: High (2) Cocaine abuse Current Visit: No Status: Chronic Priority: Medium Hospital Course: Admission HPI: Initial psychiatric evaluation was completed on 12/23/[address] Leone who wrote: "This patient stated that he got drunk last night and was feeling very depressed and subsequently broke down and was admitted to Hospital. This patient stated that he has been feeling depressed all his life. He feels sad and cannot sleep and starts drinking alcohol. He has difficulty hearing and stated he can only hear from left here but he is able to communicate well when spoken loud. This patient stated that that he has been in rehabilitation centers and psychiatric hospitals in the past. He stated he was at [facility] and some other hospitals. He stated he does not follow-up with the recommendations because he does not believe in psychiatric treatment. He stated that mental illness has a stigma and he does not want to have any stigma. He stated that there are a lot of people in his family who have problems with attitude. He denies any history of suicide in the family. He denies any history of alcohol or drug abuse in the family. : He stated his mother was diabetic but denies any other medical problems himself or in the family. He has difficulty hearing from his right ear. He stated that he was raised by his father because his mother when he was only 7 years old. He stated he had a hard time learning anything in the school and could not finish his high school. He is unemployed. He stated he does not believe in medication because a mental illness is a stigma and he does not want to stigmatize himself with psychotropic medication." Hospital course: Upon admission to the unit patient was initially presenting as disheveled, and uncooperative with treatment. Patient was however was able to be convinced to commence treatment. Patient got along well with other patients on the unit and followed unit protocol. The patient was started on his medication and was evaluated by the medical team for history and physical examination. Patient was started on Zoloft but as per patient preference, he preferred Cymbalta and Zoloft was discontinued and the patient started on Cymbalta instead to address his depression and pain symptoms. Abilify was also added to the patient's regimen to help address his irritability and mood stabilization. Patient spoke of his stressors and engaged in therapy both group and individual. Patient was also seen by medical team for history and physical exam. The patient's primary concern was general medical health as well as his interactions with peers on the unit. The patient reported that there was an agitator on the unit that was causing him significant distress. Despite this, patient reported gradual improvement in regards to his mood stabilization, anxiety, sleep, and became more future oriented with other insight and judgment. On the day of discharge, the patient is not reporting any suicidal or homicidal ideation, intention, and/or plan. He is not reporting any auditory or visualizations. He is not reporting any paranoia or other delusions. Patient denied any access to firearms or other weapons. Patient does have a significant history of substance abuse and was counseled on abstaining from all substances including alcohol and marijuana. The patient was counseled on his medications and need for regular compliance. He was encouraged to follow-up with his outpatient appointments for mental health and for primary care. Prior to discharge, family meeting will be arranged by social services coordinator to answer any questions and ensure safety. Mental status exam: General Appearance: Patient appears to be stated age is alert, pleasant, and cooperative. Patient is in no acute distress and has fair hygiene and grooming.. The patient does appear to have asymmetry of his face. Behavior: Patient is calmly seated without any agitated behavior. Psychomotor activity appears normal. Patient is hard of hearing and is able to hear out of his left ear only. Speech: Patient's speech is fluent and nonpressured. Loud in volume at baseline due to his hearing impairment. Mood/Affect: Patient reports their mood is "much better", affect is congruent and euthymic. Suicidality/Homicidality: Patient denies having any suicidal or homicidal ideation intent or plan. Perceptions: Patient denies any auditory or visual hallucinations. Though content/process: There is no evidence of any delusional thought content and thought process is linear and goal-directed. He is future oriented. Memory and concentration: AOX3, grossly intact for the purposes of this session. Can spell "WORLD" backwards correctly. Judgment and insight: Improved with guarded prognosis Impression: Major depressive disorder, recurrent, severe Alcohol abuse Cocaine abuse Plan: -Continue with discharge today as patient has improved and stabilized psychiatrically and is not currently an imminent threat to himself and/or others. [Patient will remain at chronically elevated risk for harm to self and/or others due to his history of substance abuse. -Continue medications: Cymbalta 60 mg by mouth daily for depression Abilify 2.5 mg daily for mood augmentation Patient is to continue his home medications prednisone, Lipitor, Aldactone, methotrexate, Toprol, etanercept, jardiance, folic acid, aspirin -Patient was counseled on the need for medication compliance and appropriate follow-up at mental health and also primary care for medical issues. Patient verbalized understanding and agreed. -Social work to arrange for and conduct family meeting to ensure safety upon discharge and answer any questions/concerns. Social work also to arrange for patients follow up appointments for psychiatric care along with follow up with primary care provider. -Patient counseled on abstaining from recreational drugs and marijuana and alcohol. Was informed/educated on the adverse effects on their physical and mental health. Patient verbally agreed and understood. -Patient was instructed to return to the hospital or seek immediate medical care if their psychiatric or medical symptoms do worsen or reoccur. -Psychoeducation and supportive therapy provided to patient. Risks and benefits of pharmacological treatment versus the risks and benefits of nontreatment weight and discussed. Informed consent discussion held. Common side effects of psychotropics discussed such as, but not limited to headache, GI disturbance, sexual dysfunction, movement disorders, sedation, and orthostatic hypotension. Life threatening and blackbox warnings of prescribed medications also discussed. Potential risks of operating a vehicle or heavy machinery discussed with patient at length. Advised on importance of compliance and a reliable and responsible manner. Patient advised to review FDA consumer labeling of all medic ations prior to taking. Patient verbalized understanding of potential risks, and agrees with current treatment plan. Patient advised to medically contact physician/emergency personnel if any acute changes in condition occur. Vital Signs Temp 97.1 F L 12/28/20 06:00 Pulse 78 12/28/20 06:00 Resp 18 12/28/20 06:00 BP 133/84 12/28/20 06:00 Pulse Ox 92 L 12/26/20 04:54 Laboratory Results WBC 8.5 k/uL (3.8-10.6) 12/23/20 11:22 RBC 5.05 m/uL (4.30-5.90) 12/23/20 11:22 Hgb 15.8 gm/dL (13.0-17.5) 12/23/20 11:22 Hct 49.4 % (39.0-53.0) 12/23/20 11:22 MCV 97.8 fL (80.0-100.0) 12/23/20 11:22 MCH 31.2 pg (25.0-35.0) 12/23/20 11:22 MCHC 31.9 g/dL (31.0-37.0) 12/23/20 11:22 RDW 15.1 % (11.5-15.5) 12/23/20 11:22 Plt Count 267 k/uL (150-450) 12/23/20 11:22 MPV 6.8 12/23/20 11:22 Neutrophils % 63 % 12/23/20 11:22 Lymphocytes % 25 % 12/23/20 11:22 Monocytes % 8 % 12/23/20 11:22 Eosinophils % 2 % 12/23/20 11:22 Basophils % 1 % 12/23/20 11:22 Neutrophils # 5.3 k/uL (1.3-7.7) 12/23/20 11:22 Lymphocytes # 2.1 k/uL (1.0-4.8) 12/23/20 11:22 Monocytes # 0.7 k/uL (0-1.0) 12/23/20 11:22 Eosinophils # 0.2 k/uL (0-0.7) 12/23/20 11:22 Basophils # 0.1 k/uL (0-0.2) 12/23/20 11:22 Macrocytosis Slight 12/23/20 11:22 Sodium 139 mmol/L (137-145) 12/23/20 11:22 Potassium 4.1 mmol/L (3.5-5.1) 12/23/20 11:22 Chloride 104 mmol/L (98-107) 12/23/20 11:22 Carbon Dioxide 28 mmol/L (22-30) 12/23/20 11:22 Anion Gap 7 mmol/L 12/23/20 11:22 BUN 14 mg/dL (9-20) 12/23/20 11:22 Creatinine 1.13 mg/dL (0.66-1.25) 12/23/20 11:22 Est GFR (CKD-EPI)AfAm 79 (>60 ml/min/1.73 sqM) 12/23/20 11:22 Est GFR (CKD-EPI)NonAf 68 (>60 ml/min/1.73 sqM) 12/23/20 11:22 Glucose 96 mg/dL (74-99) 12/23/20 11:22 POC Glucose (mg/dL) 94 mg/dL (75-99) 12/28/20 07:54 POC Glu Resident Associate ID Leland Ingram 12/28/20 07:[address] Glu mg/dL 143 12/23/20 11:22 Hemoglobin A1c 6.6 % (4.0-6.0) H 12/23/20 11:22 Calcium 9.0 mg/dL (8.4-10.2) 12/23/20 11:22 Total Bilirubin 0.8 mg/dL (0.2-1.3) 12/23/20 11:22 Conjugated Bilirubin 0.0 mg/dL (0.0-0.3) 12/23/20 11:22 Unconjugated Bilirubin 0.8 mg/dL (0.0-1.1) 12/23/20 11:22 Delta Bilirubin 0.0 mg/dL (0.0-0.2) 12/23/20 11:22 AST 40 U/L (17-59) 12/23/20 11:22 ALT 40 U/L (4-49) 12/23/20 11:22 Alkaline Phosphatase 82 U/L (38-126) 12/23/20 11:22 Total Protein 6.8 g/dL (6.3-8.2) 12/23/20 11:22 Albumin 4.1 g/dL (3.5-5.0) 12/23/20 11:22 TSH 0.720 mIU/L (0.465-4.680) 12/23/20 11:22 Urine Color Light Yellow 12/23/20 05:41 Urine Appearance Clear (Clear) 12/23/20 05:41 Urine pH 5.0 (5.0-8.0) 12/23/20 05:41 Ur Specific [place] 1.011 (1.001-1.035) 12/23/20 05:41 Urine Protein Negative (Negative) 12/23/20 05:41 Urine Glucose (UA) 4+ (Negative) H 12/23/20 05:41 Urine Ketones Negative (Negative) 12/23/20 05:41 Urine Blood Negative (Negative) 12/23/20 05:41 Urine Nitrite Negative (Negative) 12/23/20 05:41 Urine Bilirubin Negative (Negative) 12/23/20 05:41 Urine Urobilinogen <2.0 mg/dL (<2.0) 12/23/20 05:41 Ur Leukocyte Esterase Negative (Negative) 12/23/20 05:41 Urine Opiates Screen Not Detected (NotDetected) 12/23/20 05:41 Ur Oxycodone Screen Not Detected (NotDetected) 12/23/20 05:41 Urine Methadone Screen Not Detected (NotDetected) 12/23/20 05:41 Ur Propoxyphene Screen Not Detected (NotDetected) 12/23/20 05:41 Ur Barbiturates Screen Not Detected (NotDetected) 12/23/20 05:41 U Tricyclic Antidepress Not Detected (NotDetected) 12/23/20 05:41 Ur Phencyclidine Scrn Not Detected (NotDetected) 12/23/20 05:41 Ur Amphetamines Screen Not Detected (NotDetected) 12/23/20 05:41 U Methamphetamines Scrn Not Detected (NotDetected) 12/23/20 05:41 U Benzodiazepines Scrn Not Detected (NotDetected) 12/23/20 05:41 Urine Cocaine Screen Not Detected (NotDetected) 12/23/20 05:41 U Marijuana (THC) Screen Not Detected (NotDetected) 12/23/20 05:41 Coronavirus (PCR) Not Detected (Not Detectd) 12/23/20 05:47 Allergies Allergy/AdvReac Type Severity Reaction Status Date / Time Penicillins Allergy Rash/Hives Verified 12/23/20 06:58 Patient Condition at Discharge: Stable Plan - Discharge Summary New Discharge Prescriptions: New Spironolactone [Aldactone] 25 mg PO DAILY 30 Days tab DULoxetine HCL [Cymbalta] 60 mg PO DAILY 30 Days capsule. metHOTREXate sodium [Methotrexate] 20 mg PO SA 30 Days #0 tab Metoprolol Succinate (ER) [Toprol XL] 50 mg PO DAILY 30 Days tab.er.24h ARIPiprazole [Abilify] 2.5 mg PO DAILY 30 Days tab Atorvastatin [Lipitor] 80 mg PO DAILY 30 Days tab Ergocalciferol [Vitamin D2 (1250 Mcg = 35282 Iu)] 1,250 mcg PO Q7D capsule Continue Aspirin 81 mg PO DAILY #30 chew Nitroglycerin Sl Tabs [Nitrostat] 0.4 mg SUBLINGUAL Q5M PRN #25 tab PRN Reason: Chest Pain Etanercept [Enbrel] 50 mg SQ SA predniSONE 5 mg PO DAILY Empagliflozin [Jardiance] 10 mg PO DAILY Folic Acid 1 mg PO DAILY Discontinued metHOTREXate sodium [Methotrexate] 20 mg PO SA Atorvastatin [Lipitor] 80 mg PO DAILY Spironolactone [Aldactone] 25 mg PO DAILY #30 tab Metoprolol Succinate [Toprol XL] 50 mg PO DAILY Discharge Medication List Aspirin 81 mg PO DAILY #30 chew 10/13/14 [Rx] Nitroglycerin Sl Tabs [Nitrostat] 0.4 mg SUBLINGUAL Q5M PRN #25 tab 10/13/14 [Rx] Etanercept [Enbrel] 50 mg SQ SA 03/26/18 [History] Empagliflozin [Jardiance] 10 mg PO DAILY 12/22/20 [History] Folic Acid 1 mg PO DAILY 12/22/20 [History] predniSONE 5 mg PO DAILY 12/22/20 [History] ARIPiprazole [Abilify] 2.5 mg PO DAILY 30 Days tab 12/28/20 [Rx] Atorvastatin [Lipitor] 80 mg PO DAILY 30 Days tab 12/28/20 [Rx] DULoxetine HCL [Cymbalta] 60 mg PO DAILY 30 Days capsule. 12/28/20 [Rx] Ergocalciferol [Vitamin D2 (1250 Mcg = 10666 Iu)] 1,250 mcg PO Q7D capsule 12/28/20 [Rx] Metoprolol Succinate (ER) [Toprol XL] 50 mg PO DAILY 30 Days tab.er.24h 12/28/20 [Rx] Spironolactone [Aldactone] 25 mg PO DAILY 30 Days tab 12/28/20 [Rx] metHOTREXate sodium [Methotrexate] 20 mg PO SA 30 Days #0 tab 12/28/20 [Rx] Follow up Appointment(s)/Referral(s): None,Stated [Primary Care Provider] - 1-2 days Activity/Diet/Wound Care/Special Instructions: Activity and diet as tolerated. Avoid the use of street drugs and alcohol. Take all medications as prescribed. When you are in need of refills on your medications please contact your medical provider and/or outpatient psychiatrist to have this done. Please go to scheduled outpatient appointment for aftercare treatment. If symptoms return or become worse, call the crisis line at and/or go to the nearest emergency room for evaluation. Discharge Disposition: HOME SELF-CARE
--- NOTE | 2020-12-28 10:53 | P.PN ---
Progress Note - Text Progress Note Date: 12/27/20 Interval History: Patient was seen wandering the hallways and was directable and agreeable to speak with loan underwriter in the office. Patient states he sits was concerned with a peer in the milieu. He reports that this is causing him to feel more angry. Despite this, the patient not reporting any suicidal or homicidal ideation, intention, and/or plan. He is not reporting any auditory or visualizations. He is denying any paranoia or delusions. He has been in adherent medications is not reporting any significant side effects. He reports no issues with his sleep or appetite. The patient has been able to participate in both individual and milieu therapies. He attends groups with high participation. Mental Status Exam: General Appearance: Patient appears to be stated age is alert, directable, and cooperative. The patient does appear to have asymmetry of his face which he attributes to a defect. Behavior: Patient is calmly seated without any agitated behavior. The patient is only able to hear out of his left ear. Psychomotor activity appears normal. Speech: Patient's speech is fluent and nonpressured. Mood/Affect: Mood is "annoyed" Affect is mood congruent, and irritable Suicidality/Homicidality: Patient denies having any suicidal or homicidal mary ation intent or plan. Perceptions: Patient denies any visual hallucinations and denies any auditory hallucinations Though content/process: There is no evidence of any delusional thought content and thought process is linear and goal-directed. Memory and concentration: AOX3, grossly intact for the purposes of this session Judgment and insight: Improving mildly Vital Signs Temp 96.5 F L 12/26/20 09:45 Pulse 112 H 12/26/20 09:45 Resp 18 12/26/20 09:45 BP 127/89 12/26/20 09:45 Pulse Ox 92 L 12/26/20 04:54 Intake & Output 12/25/20 12/26/20 12/26/20 18:59 06:59 18:59 Weight 91.2 kg Assessment Major depressive disorder, recurrent, severe Alcohol abuse Cocaine abuse Plan: -Patient continues to meet criteria for inpatient psychiatric admission for symptom stabilization and safety. Patient has signed adult voluntary form and medication consent and was placed in patient's chart. -Medications: Continue cymbalta 60 mg daily for depression. Continue Abilify 2.5 mg daily for mood stabilization/augmentation. -When necessary Ativan and Haldol for agitation/aggression. -NRT - nicotine patch -SW on board for discharge planning. Encouraged the patient to participate in milieu.
[2020-12-28 12:56] LABS: Glucose,Whole Blood 101 mg/dL (75-99)
== END 2020-12-28 17:12 | disposition home or self-care (01) | DRG 885 ==
LOC: EC 22:04 → 3MHU 12-23 06:44
PROVIDERS: ADMIT Psychiatry & Neurology Psychiatry; ATTEND Psychiatry & Neurology Psychiatry
DX: F33.2 Major depressive disorder, recurrent severe without psychotic features (principal); I50.22 Chronic systolic (congestive) heart failure; E11.9 Type 2 diabetes mellitus without complications; E78.5 Hyperlipidemia, unspecified; F10.129 Alcohol abuse with intoxication, unspecified; F14.10 Cocaine abuse, uncomplicated; F41.9 Anxiety disorder, unspecified; H91.92 Unspecified hearing loss, left ear; I11.0 Hypertensive heart disease with heart failure; I25.10 Atherosclerotic heart disease of native coronary artery without angina pectoris; M06.9 Rheumatoid arthritis, unspecified; Z79.02 Long term (current) use of antithrombotics/antiplatelets; Z79.82 Long term (current) use of aspirin; Z79.84 Long term (current) use of oral hypoglycemic drugs; Z79.899 Other long term (current) drug therapy; Z82.49 Family history of ischemic heart disease and other diseases of the circulatory system; Z83.3 Family history of diabetes mellitus; Z91.19 Patient's noncompliance with other medical treatment and regimen; Z95.5 Presence of coronary angioplasty implant and graft; Z20.822 Contact with and (suspected) exposure to COVID-19
CPT/HCPCS: 80053; 80306; 81003; 82075; 82248; 83036; 84443; 85025; 87635; 99285

== ENCOUNTER 2022-10-12 08:44 | Emergency (ER) | payer MEDICARE ==
[2022-10-12 08:57] VITALS: PULSE 86; RESP 16
[2022-10-12] MEDS ORDERED: LIDOCAINE-PRILOCAINE 2.5-2.5% CREAM 5 GM TUBE TOPICAL STA (09:26)
[2022-10-12] MEDS ORDERED: HYDROcodone/APAP 5-325MG 1 EACH TAB PO STA (09:27)
--- NOTE | 2022-10-12 09:30 | ED ---
Skin/Abscess/FB HPI - General Chief complaint: Skin/Abscess/Foreign Body Stated complaint: Lump on neck Time Seen by Provider: 10/12/22 09:00 Source: patient, RN notes reviewed, old records reviewed Mode of arrival: ambulatory Limitations: no limitations - History of Present Illness Initial comments: 67-year-old male presents to the emergency room with complaints of abscess to the left side of his neck for the past 2 weeks. States he has not noticed any drainage but is increasing in size and discomfort. Denies any fevers. Has not seen his doctor for this yet. MD complaint: abscess/boil -: week(s) (2) Location: neck Severity scale (1-10): 8 Quality: constant Consistency: constant Improves with: none Worsens with: palpation Associated symptoms: denies other symptoms Treatments Prior to Arrival: none - Related Data Home Medications Medication Instructions Recorded Confirmed Etanercept [Enbrel] 50 mg SQ SA 03/26/18 12/23/20 Empagliflozin [Jardiance] 10 mg PO DAILY 12/22/20 12/23/20 Folic Acid 1 mg PO DAILY 12/22/20 12/23/20 predniSONE 5 mg PO DAILY 12/22/20 12/23/20 Previous Rx's Medication Instructions Recorded Aspirin 81 mg PO DAILY #30 chew 10/13/14 Nitroglycerin Sl Tabs [Nitrostat] 0.4 mg SUBLINGUAL Q5M PRN #25 tab 10/13/14 ARIPiprazole [Abilify] 2.5 mg PO DAILY 30 Days tab 12/28/20 Atorvastatin [Lipitor] 80 mg PO DAILY 30 Days tab 12/28/20 DULoxetine HCL [Cymbalta] 60 mg PO DAILY 30 Days capsule.dr 12/28/20 Ergocalciferol [Vitamin D2 (1250 1,250 mcg PO Q7D capsule 12/28/20 Mcg = 80674 Iu)] Metoprolol Succinate (ER) [Toprol 50 mg PO DAILY 30 Days tab.er.24h 12/28/20 XL] Spironolactone [Aldactone] 25 mg PO DAILY 30 Days tab 12/28/20 metHOTREXate sodium [Methotrexate] 20 mg PO SA 30 Days #0 tab 12/28/20 Cephalexin [Keflex] 500 mg PO Q6HR 7 Days #28 cap 10/12/22 Allergies Allergy/AdvReac Type Severity Reaction Status Date / Time Penicillins Allergy Rash/Hives Verified 10/12/22 08:52 Review of Systems ROS Statement: Those systems with pertinent positive or pertinent negative responses have been documented in the HPI. ROS Other: All systems not noted in ROS Statement are negative. Past Medical History Past Medical History: Coronary Artery Disease (CAD), Hyperlipidemia, Hypertension, Myocardial Infarction (non Q-wave), Rheumatoid Arthritis (RA) Additional Past Medical History / Comment(s): only 1 ear canal d/t defect Last Myocardial Infarction Date:: [facility] History of Any Multi-Drug Resistant Organisms: None Reported Past Surgical History: No Surgical Hx Reported, Ear Surgery, Heart Catheterization With Stent, Orthopedic Surgery Additional Past Surgical History / Comment(s): plate right leg, arthroscopic in the right ankle 3, sinus surgery, multiple reconstructive surgeries on face, bilateral eyelid surgery 23 times. Past Anesthesia/Blood Transfusion Reactions: No Reported Reaction Date of Last Stent Placement:: unknown Past Psychological History: Anxiety, Depression Smoking Status: Never smoker Past Alcohol Use History: Occasional Past Drug Use History: Cocaine - Past Family History Father Family Medical History: Coronary Artery Disease (CAD), Myocardial Infarction ([place]) Additional Family Medical History / Comment(s): Father at age 61 from myocardial infarction. Mother Family Medical History: Diabetes Mellitus Additional Family Medical History / Comment(s): Mother in her 30s from complications of diabetes. Brother(s) Family Medical History: Diabetes Mellitus, Hypertension Additional Family Medical History / Comment(s): Patient has 2 brothers one with diabetes and one with hypertension. Sister(s) Additional Family Medical History / Comment(s): He has one sister with diabetes and one half-sister. He has 3 children with no major medical problems. General Exam Limitations: no limitations General appearance: alert, in no apparent distress Head exam: Present: atraumatic Eye exam: Absent: scleral icterus, conjunctival injection Neck exam: Present: tenderness, full ROM, other (abscess left lateral neck approx 4cm round, raised). Absent: meningismus Respiratory exam: Absent: respiratory distress, accessory muscle use Cardiovascular Exam: Present: regular rate Neurological exam: Present: alert, oriented X3, normal gait Psychiatric exam: Present: normal affect, normal mood Skin exam: Present: warm, dry, normal color. Absent: cyanosis, diaphoretic, petechiae, pallor Course Vital Signs 10/12/22 10/12/22 08:53 10:38 Temperature 97.6 F 97.9 F Pulse Rate 86 Respiratory 16 Rate Blood Pressure 152/103 129/76 O2 Sat by Pulse 95 Oximetry Procedures - Incision & Drainage Consent Obtained: verbal consent Site: neck Anesthetic Used: lidocaine 1% (with emla) I&D Cleaning Method: Betadine Scalpel Used: #11 Needle Aspiration Performed?: Yes I&D Drainage Obtained: Pus, Blood Culture Obtained?: Yes Patient Tolerated Procedure: well, no complications Medical Decision Making - Medical Decision Making Patient presents with abscess to the left lateral neck for 2 weeks. Denies any fevers, no nausea vomiting or diarrhea. Incision and drainage was performed after needle aspiration. Purulent drainage was sent for culture. Patient was instructed to use warm moist compresses 3 times a day and take antibiotics as prescribed. States has an appointment with his primary care doctor next week. Directed to return for any new or concerning symptoms. Case discussed with Dr. Giraldo Was pt. sent in by a medical professional or institution (, PA, HOSPICE NURSE, urgent care, hospital, or group home...) When possible be specific @ -No Did you speak to anyone other than the patient for history (EMS, parent, family, police, friend...)? What history was obtained from this source @ -No Did you review nursing and triage notes (agree or disagree)? Why? @ -I reviewed and agree with nursing and triage notes Were old charts reviewed (outside hosp., previous admission, EMS record, old EKG, old radiological studies, urgent care reports/EKG's, group home records)? Report findings @ -No old charts were reviewed Differential Diagnosis (chest pain, altered mental status, abdominal pain women, abdominal pain men, vaginal bleeding, weakness, fever, dyspnea, syncope, headache, dizziness, GI bleed, back pain, seizure, CVA, palpatations, mental health, musculoskeletal)? @ -Abscess, cellulitis, cyst this is not an all inclusive list EKG interpreted by me (3pts min.). @ -n/a X-rays interpreted by me (1pt min.). @ -None done CT interpreted by me (1pt min.). @ -None done U/S interpreted by me (1pt. min.). @ -None done What testing was considered but not performed or refused? (CT, X-rays, U/S, labs)? Why? @ -None What meds were considered but not given or refused? Why? @ -Tetanus was considered however patient states up-to-date Did you discuss the management of the patient with other professionals (professionals i.e. , PA, HOSPICE NURSE, lab, RT, psych nurse, social sciences instructor, c programmer, teacher, traffic division commanding officer, mattress spring encaser)? Give summary @ -No Was smoking cessation discussed for >3mins.? @ -No Was critical care preformed (if so, how long)? @ -No Were there social determinants of health that impacted care today? How? (Homelessness, low income, unemployed, alcoholism, drug addiction, transportation, low edu. Level, literacy, decrease access to med. care, skilled nursing, rehab)? @ -No Was there de-escalation of care discussed even if they declined (Discuss DNR or withdrawal of care, Hospice)? DNR status @ -No What co-morbidities impacted this encounter? (DM, HTN, Smoking, COPD, CAD, Cancer, CVA, ARF, Chemo, Hep., AIDS, mental health diagnosis, sleep apnea, morbid obesity)? @ -Coronary artery disease, hypertension, rheumatoid arthritis, depression Was patient admitted / discharged? Hospital course, mention meds given and route, prescriptions, significant lab abnormalities, going to OR and other pertinent info. @ -Discharged Undiagnosed new problem with uncertain prognosis? @ -No Drug Therapy requiring intensive monitoring for toxicity (Heparin, Nitro, Insulin, Cardizem)? @ -No Were any procedures done? @ -Incision and drainage Diagnosis/symptom? @ -Abscess with cellulitis neck Acute, or Chronic, or Acute on Chronic? @ -Acute Uncomplicated (without systemic symptoms) or Complicated (systemic symptoms)? @ -Uncomplicated Side effects of treatment? @ -No Exacerbation, Progression, or Severe Exacerbation? @ -No Poses a threat to life or bodily function? How? (Chest pain, USA, PA, pneumonia, PE, COPD, DKA, ARF, appy, cholecystitis, CVA, Diverticulitis, Homicidal, Suicidal, threat to staff... and all critical care pts) @ -No Disposition Clinical Impression: Cellulitis and abscess of neck Disposition: HOME SELF-CARE Condition: Good Instructions (If sedation given, give patient instructions): Cellulitis (ED), Abscess Incision and Drainage (ED) Additional Instructions: Warm moist compresses 3 times a day to promote drainage. Take antibiotics as prescribed. Follow-up with your primary care doctor Friday. Return with any new or concerning symptoms. Prescriptions: Cephalexin [Keflex] 500 mg PO Q6HR 7 Days #28 cap Is patient prescribed a controlled substance at d/c from ED?: No Referrals: Zachary Alarcon MD [Primary Care Provider] - 1-2 days Time of Disposition: 10:23
[2022-10-12] MEDS ORDERED: LIDOCAINE 1% INJ 10MG/ML (30 ML VIAL-PF) SQ ONE (09:57)
[2022-10-12] MEDS ORDERED: CEPHALEXIN 500 MG CAP PO STA (10:23)
[2022-10-12 10:40] VITALS: BP 129/76; TEMP 97.9
== END 2022-10-12 10:35 | disposition home or self-care (01) ==
LOC: EC 08:44
DX: L02.11 Cutaneous abscess of neck (principal); L03.221 Cellulitis of neck; I25.10 Atherosclerotic heart disease of native coronary artery without angina pectoris; I10 Essential (primary) hypertension; I25.2 Old myocardial infarction; M06.9 Rheumatoid arthritis, unspecified; F41.9 Anxiety disorder, unspecified; F32.A Depression, unspecified; Z88.0 Allergy status to penicillin; Z79.899 Other long term (current) drug therapy
CPT/HCPCS: 99283 ×2; 10060 ×2; 87070; 87205; J2001

== ENCOUNTER 2023-06-03 16:35 | Emergency (ER) | payer MEDICARE, OTHER ==
--- NOTE | 2023-06-03 16:49 | ED ---
General Adult HPI - General Source: patient, RN notes reviewed Mode of arrival: ambulatory Limitations: no limitations <Bib Polanco - Last Filed: 06/03/23 16:48> - General Source: RN notes reviewed, old records reviewed Mode of arrival: ambulatory Limitations: no limitations - History of Present Illness -: unknown Location: face Severity scale (1-10): 0 Consistency: constant Improves with: none Worsens with: none Associated Symptoms: denies other symptoms <Adrian Cade - Last Filed: 06/08/23 20:20> - General Stated complaint: facial drop Time Seen by Provider: 06/03/23 16:48 - History of Present Illness Initial comments: 68-year-old male presents emergency Department with chief complaint of possible worsening facial droop. 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 Patient states that his [facility] worker felt that it may be a little different today but he is only seen worker 2 times. Patient states is not feels worsened usual but was sent over here to rule out CVA. (Bib Polanco) This is a 68-year-old male to the emergency room today for evaluation. [facility] worker and artillery specialist began concerned over his facial differences. Patient s tates these are no new changes in his face always looks like this he also states when he looked in the mirror this morning normal. For himself. Patient always has facial contortion patient states his face looks normal (Adrian Cade) - Related Data Home Medications Medication Instructions Recorded Confirmed Etanercept [Enbrel] 50 mg SQ SA 03/26/18 12/23/20 Empagliflozin [Jardiance] 10 mg PO DAILY 12/22/20 12/23/20 Folic Acid 1 mg PO DAILY 12/22/20 12/23/20 predniSONE 5 mg PO DAILY 12/22/20 12/23/20 Previous Rx's Medication Instructions Recorded Aspirin 81 mg PO DAILY #30 chew 10/13/14 Nitroglycerin Sl Tabs [Nitrostat] 0.4 mg SUBLINGUAL Q5M PRN #25 tab 10/13/14 ARIPiprazole [Abilify] 2.5 mg PO DAILY 30 Days tab 12/28/20 Atorvastatin [Lipitor] 80 mg PO DAILY 30 Days tab 06/10/21 DULoxetine HCL [Cymbalta] 60 mg PO DAILY 30 Days capsule. 12/28/20 Ergocalciferol [Vitamin D2 (1250 1,250 mcg PO Q7D capsule 12/28/20 Mcg = 67385 Iu)] Metoprolol Succinate (ER) [Toprol 50 mg PO DAILY 30 Days tab.er.24h 12/28/20 XL] Spironolactone [Aldactone] 25 mg PO DAILY 30 Days tab 12/28/20 metHOTREXate sodium 20 mg PO SA 30 Days #0 tab 12/28/20 Cephalexin [Keflex] 500 mg PO Q6HR 7 Days #28 cap 10/12/22 Allergies Allergy/AdvReac Type Severity Reaction Status Date / Time Penicillins Allergy Rash/Hives Verified 06/03/23 16:50 Review of Systems ROS Other: All systems not noted in ROS Statement are negative. <Bib Polanco - Last Filed: 06/03/23 16:48> ROS Other: All systems not noted in ROS Statement are negative. <Adrian Cade - Last Filed: 06/08/23 20:20> ROS Statement: Those systems with pertinent positive or pertinent negative responses have been documented in the HPI. Past Medical History Past Medical History: Coronary Artery Disease (CAD), Hyperlipidemia, Hypertension, Myocardial Infarction (non Q-wave), Rheumatoid Arthritis (RA) Additional Past Medical History / Comment(s): only 1 ear canal d/t defect Last Myocardial Infarction Date:: [facility] History of Any Multi-Drug Resistant Organisms: None Reported Past Surgical History: No Surgical Hx Reported, Ear Surgery, Heart Catheterization With Stent, Orthopedic Surgery Additional Past Surgical History / Comment(s): plate right leg, arthroscopic in the right ankle 3, sinus surgery, multiple reconstructive surgeries on face, bilateral eyelid surgery 23 times. Past Anesthesia/Blood Transfusion Reactions: No Reported Reaction Date of Last Stent Placement:: unknown Past Psychological History: Anxiety, Depression Smoking Status: Never smoker Past Alcohol Use History: Occasional Past Drug Use History: Cocaine - Past Family History Father Family Medical History: Coronary Artery Disease (CAD), Myocardial Infarction ([place]) Additional Family Medical History / Comment(s): Father at age 61 from myocardial infarction. Mother Family Medical History: Diabetes Mellitus Additional Family Medical History / Comment(s): Mother in her 30s from complications of diabetes. Brother(s) Family Medical History: Diabetes Mellitus, Hypertension Additional Family Medical History / Comment(s): Patient has 2 brothers one with diabetes and one with hypertension. Sister(s) Additional Family Medical History / Comment(s): He has one sister with diabetes and one half-sister. He has 3 children with no major medical problems. <Bib oPlanco - Last Filed: 06/03/23 16:48> General Exam <Bib Polanco - Last Filed: 06/03/23 16:48> General appearance: alert, in no apparent distress Head exam: Present: atraumatic, normocephalic, normal inspection Eye exam: Present: normal appearance, PERRL, EOMI. Absent: scleral icterus, conjunctival injection, periorbital swelling ENT exam: Present: normal exam, mucous membranes moist Neck exam: Present: normal inspection. Absent: tenderness, meningismus, lymphadenopathy Respiratory exam: Present: normal lung sounds bilaterally. Absent: respiratory distress, wheezes, rales, rhonchi, stridor Cardiovascular Exam: Present: regular rate, normal rhythm, normal heart sounds. Absent: systolic murmur, diastolic murmur, rubs, gallop, clicks GI/Abdominal exam: Present: soft, normal bowel sounds. Absent: distended, tenderness, guarding, rebound, rigid Extremities exam: Present: normal inspection, full ROM, normal capillary refill. Absent: tenderness, pedal edema, joint swelling, calf tenderness Back exam: Present: normal inspection Neurological exam: Present: alert, oriented X3, CN II-XII intact Psychiatric exam: Present: normal affect, normal mood Skin exam: Present: warm, dry, intact, normal color. Absent: rash <Adrian Cade - Last Filed: 06/08/23 20:20> - General Exam Comments Initial Comments: Visual Physical Exam Vital signs reviewed General: Well-appearing, nontoxic, no acute distress. Head: Normocephalic, atraumatic Eyes: PERRLA, EOMI ENT: Airway patent Chest: Nonlabored breathing Skin: No visual rash, normal skin tone Neuro: Alert and oriented 3 Musculoskeletal: No gross abnormalities (Bib Polanco) Course <Adrian Cade - Last Filed: 06/08/23 20:20> Vital Signs 06/03/23 06/03/23 06/03/23 16:44 18:52 20:01 Temperature 98.1 F Pulse Rate 99 83 80 Respiratory 18 20 18 Rate Blood Pressure 139/85 158/81 148/65 O2 Sat by Pulse 99 95 95 Oximetry - Reevaluation(s) Reevaluation #1: 06/03/23 19:41 Medical records reviewed (Adrian Cade) Reevaluation #2: 06/03/23 19:41 Patient continues to deny any acute symptoms (Adrian Cade) Reevaluation #3: 06/03/23 19:42 patient informed results questions answered (Adrian Cade) Reevaluation #4: 06/03/23 19:42 Was pt. sent in by a medical professional or institution ([facility], TOWER HOIST OPERATOR, urgent care, hospital, or residential...) When possible be specific @ -no Did you speak to anyone other than the patient for history (EMS, parent, family, police, friend...)? What history was obtained from this source @ -no Did you review nursing and triage notes (agree or disagree)? Why? @ -agree Are old charts reviewed (outside hosp., previous admission, EMS record, old EKG, old radiological studies, urgent care reports/EKG's, residential records)? Report findings @ -yes Differential Diagnosis (chest pain, altered mental status, abdominal pain women, abdominal pain men, vaginal bleeding, weakness, fever, dyspnea, syncope, heada johnny, dizziness, GI bleed, back pain, seizure, CVA, palpatations, mental health, musculoskeletal)? @ -prior EKG interpreted by me (3pts min.). @ -no X-rays interpreted by me (1pt min.). @ -yes CT interpreted by me (1pt min.). @ -yes U/S interpreted by me (1pt. min.). @ -no What testing was considered but not performed or refused? (CT, X-rays, U/S, labs)? Why? @ -none What meds were considered but not given or refused? Why? @ -none Did you discuss the management of the patient with other professionals (professionals i.e. [facility], TOWER HOIST OPERATOR, lab, RT, psych nurse, social media community manager, rides supervisor, teacher, combatant diver officer, telephonic case manager)? Give summary @ -no Was smoking cessation discussed for >3mins.? @ -no Was critical care preformed (if so, how long)? @ -no Were there social determinants of health that impacted care today? How? (Homelessness, low income, unemployed, alcoholism, drug addiction, [place] sportation, low edu. Level, literacy, decrease access to med. care, longterm, rehab)? @ -none Was there de-escalation of care discussed even if they declined (Discuss DNR or withdrawal of care, Hospice)? DNR status @ -no What co-morbidities impacted this encounter? (DM, HTN, Smoking, COPD, CAD, Cancer, CVA, ARF, Chemo, Hep., AIDS, mental health diagnosis, sleep apnea, morbid obesity)? @ -none Was patient admitted / discharged? Hospital course, mention meds given and route, prescriptions, significant lab abnormalities, going to OR and other pertinent info. @ - 68 male to the emergency department for evaluation of neurological exam. Patient denies neurological changes here in the ER. He has normal testing here in the ER he feels well prefers discharged home Discharge Undiagnosed new problem with uncertain prognosis? @ -no Drug Therapy requiring intensive monitoring for toxicity (Heparin, Nitro, Insulin, Cardizem)? @ -no Were any procedures done? @ -no Diagnosis/symptom? @ -Normal exam Acute, or Chronic, or Acute on Chronic? @ -Acute Uncomplicated (without systemic symptoms) or Complicated (systemic symptoms)? @ -Complicated Side effects of treatment? @ -no Exacerbation, Progression, or Severe Exacerbation? @ -exacerbation Poses a threat to life or bodily function? How? (Chest pain, USA, SD, pneumonia, PE, COPD, DKA, ARF, appy, cholecystitis, CVA, Diverticulitis, Homicidal, Suicidal, threat to staff... and all critical care pts) @ -no (Adrian Cade) Medical Decision Making <Bib Polanco - Last Filed: 06/03/23 16:48> - Lab Data Result diagrams: 06/03/23 17:17 06/03/23 17:17 - Radiology Data Radiology results: report reviewed (CT brain is negative for acute disease), image reviewed <Adrian Cade - Last Filed: 06/08/23 20:20> - Medical Decision Making I completed the quick note portion of this chart signed Bib Polanco PA-C (Bib Polanco) 68 male to the emergency department for evaluation of neurological exam. Patient denies neurological changes here in the ER. He has normal testing here in the ER he feels well prefers discharged home (Adrian Cade) - Lab Data Lab Results 06/03/23 06/03/23 06/03/23 Range/Units 16:56 17:17 17:17 WBC 8.3 (3.8-10.6) k/uL RBC 5.21 (4.30-5.90) m/uL Hgb 17.3 (13.0-17.5) gm/dL Hct 51.1 (39.0-53.0) % MCV 98.1 (80.0-100.0) fL MCH 33.2 (25.0-35.0) pg MCHC 33.8 (31.0-37.0) g/dL RDW 13.5 (11.5-15.5) % Plt Count 300 (150-450) k/uL MPV 6.9 Neutrophils % 77 % Lymphocytes % 16 % Monocytes % 4 % Eosinophils % 1 % Basophils % 0 % Neutrophils # 6.4 (1.3-7.7) k/uL Lymphocytes # 1.4 (1.0-4.8) k/uL Monocytes # 0.3 (0-1.0) k/uL Eosinophils # 0.0 (0-0.7) k/uL Basophils # 0.0 (0-0.2) k/uL PT 10.9 (10.0-12.5) sec INR 1.0 (<1.2) APTT 25.0 (22.0-30.0) sec Sodium (137-145) mmol/L Potassium (3.5-5.1) mmol/L Chloride (98-107) mmol/L Carbon Dioxide (22-30) mmol/L Anion Gap mmol/L BUN (9-20) mg/dL Creatinine (0.66-1.25) mg/dL Est GFR (CKD-EPI)AfAm (>60 ml/min/1.73 sqM) Est GFR (CKD-EPI)NonAf (>60 ml/min/1.73 sqM) Glucose (74-99) mg/dL Calcium (8.4-10.2) mg/dL Total Bilirubin (0.2-1.3) mg/dL AST (17-59) U/L ALT (4-49) U/L Alkaline Phosphatase (38-126) U/L Creatine Kinase (55-170) U/L Troponin I (0.000-0.034) ng/mL Total Protein (6.3-8.2) g/dL Albumin (3.5-5.0) g/dL Urine Color Colorless Urine Appearance Clear (Clear) Urine pH 5.0 (5.0-8.0) Ur Specific [place] 1.020 (1.001-1.035) Urine Protein Negative (Negative) Urine Glucose (UA) 4+ H (Negative) Urine Ketones Negative (Negative) Urine Blood Trace H (Negative) Urine Nitrite Negative (Negative) Urine Bilirubin Negative (Negative) Urine Urobilinogen <2.0 (<2.0) mg/dL Ur Leukocyte Esterase Negative (Negative) Urine RBC 5 (0-5) /hpf Urine Mucus Rare H (None) /hpf 06/03/23 06/03/23 Range/Units 17:17 17:17 WBC (3.8-10.6) k/uL RBC (4.30-5.90) m/uL Hgb (13.0-17.5) gm/dL Hct (39.0-53.0) % MCV (80.0-100.0) fL MCH (25.0-35.0) pg MCHC (31.0-37.0) g/dL RDW (11.5-15.5) % Plt Count (150-450) k/uL MPV Neutrophils % % Lymphocytes % % Monocytes % % Eosinophils % % Basophils % % Neutrophils # (1.3-7.7) k/uL Lymphocytes # (1.0-4.8) k/uL Monocytes # (0-1.0) k/uL Eosinophils # (0-0.7) k/uL Basophils # (0-0.2) k/uL PT (10.0-12.5) sec INR (<1.2) APTT (22.0-30.0) sec Sodium 137 (137-145) mmol/L Potassium 5.5 H (3.5-5.1) mmol/L Chloride 101 (98-107) mmol/L Carbon Dioxide 24 (22-30) mmol/L Anion Gap 12 mmol/L BUN 21 H (9-20) mg/dL Creatinine 0.86 (0.66-1.25) mg/dL Est GFR (CKD-EPI)AfAm >90 (>60 ml/min/1.73 sqM) Est GFR (CKD-EPI)NonAf 89 (>60 ml/min/1.73 sqM) Glucose 106 H (74-99) mg/dL Calcium 9.7 (8.4-10.2) mg/dL Total Bilirubin 1.3 (0.2-1.3) mg/dL AST 54 (17-59) U/L ALT 47 (4-49) U/L Alkaline Phosphatase 65 (38-126) U/L Creatine Kinase 95 (55-170) U/L Troponin I <0.012 (0.000-0.034) ng/mL Total Protein 8.1 (6.3-8.2) g/dL Albumin 4.7 (3.5-5.0) g/dL Urine Color Urine Appearance (Clear) Urine pH (5.0-8.0) Ur Specific [place] (1.001-1.035) Urine Protein (Negative) Urine Glucose (UA) (Negative) Urine Ketones (Negative) Urine Blood (Negative) Urine Nitrite (Negative) Urine Bilirubin (Negative) Urine Urobilinogen (<2.0) mg/dL Ur Leukocyte Esterase (Negative) Urine RBC (0-5) /hpf Urine Mucus (None) /hpf Disposition <Bib Polanco - Last Filed: 06/03/23 16:48> Is patient prescribed a controlled substance at d/c from ED?: No Time of Disposition: 19:35 <Adrian Cade - Last Filed: 06/08/23 20:20> Clinical Impression: Normal exam Disposition: HOME SELF-CARE Condition: Good Instructions (If sedation given, give patient instructions): Normal Exam (ED) Referrals: Zachary Alarcon [Primary Care Provider] - 1-2 days
[2023-06-03 16:57] VITALS: TEMP 98.1
[2023-06-03 17:18] LABS: Appearance,Urine Clear (Clear); Bilirubin,Urine Negative (Negative); Blood,Urine Trace (Negative); Color,Urine Colorless; Glucose,Urine (UA) 4+ (Negative); Ketones,Urine Negative (Negative); Leukocyte Esterase,Urine Negative (Negative); Mucus,Urine Rare /hpf; Nitrite,Urine Negative (Negative); Protein,Urine Negative (Negative); RBC,Urine 5 /hpf (0-5); Urobilinogen,Urine <2.0 mg/dL (<2.0)
--- NOTE | 2023-06-03 17:35 | CT ---
EXAMINATION TYPE: CT brain wo con DATE OF EXAM: 06/03/2023 COMPARISON: 11/18/2014 INDICATION: Facial drooping DLP: 1183.4 mGycm, Automated exposure control for dose reduction was used. CONTRAST: None CT of the brain is performed utilizing 3 mm thick sections through the posterior fossa and 3 mm thick sections through the remaining calvarium. Study is performed within 24 hours of arrival to the hosp ital. No abnormal hyperdensity is present to suggest an acute intracranial hemorrhage. No mass lesion is evident. No acute infarcts are evident. There may be some interval development of minimal periventricular whit e matter hypodensity likely on the basis of chronic white matter ischemic changes. Ventricles and sulci are appropriate for the patient age. Paranasal sinuses and mastoid air cells within the [id number] are clear. IMPRESSION: 1. Findings suggestive of some mild chronic appearing periventricular white matter ischemic type ch anges. No acute intracranial process radiographically apparent. Consider follow-up MRI as clinically indicated.
[2023-06-03 17:51] LABS: Basophils % (A) 0 %; Eosinophils % (A) 1 %; HCT 51.1 % (39.0-53.0); HGB 17.3 gm/dL (13.0-17.5); Lymphocytes # (A) 1.4 k/uL (1.0-4.8); Lymphocytes % (A) 16 %; MCH 33.2 pg (25.0-35.0); MCHC 33.8 g/dL (31.0-37.0); MCV 98.1 fL (80.0-100.0); Mean Platelet Volume 6.9; Monocytes # (A) 0.3 k/uL (0-1.0); Monocytes % (A) 4 %; Neutrophils # (A) 6.4 k/uL (1.3-7.7); Neutrophils % (A) 77 %; Platelet Count 300 k/uL (150-450); RBC 5.21 m/uL (4.30-5.90); RDW 13.5 % (11.5-15.5); WBC 8.3 k/uL (3.8-10.6)
[2023-06-03 18:11] LABS: ALT 47 U/L (4-49); AST 54 U/L (17-59); African American GFR (CKD) >90 (>60 ml/min/1.73 sqM); Albumin 4.7 g/dL (3.5-5.0); Alkaline Phosphatase 65 U/L (38-126); Anion Gap 12 mmol/L; Blood Urea Nitrogen 21 mg/dL (9-20); Calcium 9.7 mg/dL (8.4-10.2); Carbon Dioxide 24 mmol/L (22-30); Chloride 101 mmol/L (98-107); Creatine Kinase 95 U/L (55-170); Glucose 106 mg/dL (74-99); Non-African American GFR(CKD) 89 (>60 ml/min/1.73 sqM); Sodium 137 mmol/L (137-145); Total Bilirubin 1.3 mg/dL (0.2-1.3); Total Protein 8.1 g/dL (6.3-8.2)
[2023-06-03 18:30] LABS: Potassium 5.5 mmol/L (3.5-5.1)
[2023-06-03 18:35] LABS: Prothrombin Time 10.9 sec (10.0-12.5)
[2023-06-03 20:20] VITALS: BP 148/65; PULSE 80; RESP 18
--- NOTE | 2023-06-03 21:12 | XR ---
EXAMINATION TYPE: XR chest 2V DATE OF EXAM: 06/03/2023 6:40 PM CLINICAL INDICATION:Male, 68 years old with history of altered mental status; H COMPARISON: None TECHNIQUE: XR chest 2V Frontal and lateral views of the chest. FINDINGS: Lines/Tubes: No indwelling lines are seen. Lungs/Pleura: There is no evidence of pleural effusion, focal consolidation, or pneumothorax. Pulmonary vascularity: Unremarkable. Heart/mediastinum: Cardiomediastinal silhouette is unremarkable. Heart is not enlarged. Musculoskeletal: No definite acute bony abnormality. Mild deformity of the right sixth rib and old he aled fracture of the anterolateral eighth rib, similar to before. Moderate degenerative changes of th e spine, mild degenerative change of the shoulders. Other findings: None IMPRESSION: No acute cardiopulmonary disease/process.
== END 2023-06-03 20:01 | disposition home or self-care (01) ==
LOC: EC 16:35
DX: Z00.00 Encounter for general adult medical examination without abnormal findings (principal); I10 Essential (primary) hypertension; I25.10 Atherosclerotic heart disease of native coronary artery without angina pectoris; I25.2 Old myocardial infarction; Z88.0 Allergy status to penicillin; Z79.52 Long term (current) use of systemic steroids; Z86.59 Personal history of other mental and behavioral disorders
CPT/HCPCS: 36415; 70450; 71046; 80053; 81001; 82550; 84484; 85025; 85610; 85730; 93005; 99284

== ENCOUNTER → 2024-05-13 | Outpatient (CLI) | payer MEDICARE, OTHER ==
[2024-05-13 20:40] LABS: % Iron Saturation 33.01 (15.00-50.00); ALT 45 U/L (10-49); AST 35 U/L (14-35); Albumin 4.3 g/dL (3.8-4.9); Albumin/Globulin Ratio 1.79 Ratio (1.60-3.17); Alkaline Phosphatase 60 U/L (41-126); BUN/Creat Ratio 26.33 Ratio (12.00-20.00); Blood Urea Nitrogen 23.7 mg/dL (9.0-27.0); Calcium 9.1 mg/dL (8.7-10.3); Carbon Dioxide 24.5 mmol/L (21.6-31.8); Chloride 100 mmol/L (96-109); Globulin 2.4 g/dL (1.6-3.3); Glucose 106 mg/dL (70-110); Iron 136 UG/DL (65-175); Potassium 4.3 mmol/L (3.5-5.5); Prostate Specific Antigen 0.47 ng/mL (0.000-4.500); Sodium 139 mmol/L (135-145); Total Bilirubin 0.7 mg/dL (0.3-1.2); Total Iron Binding Capacity 412 UG/DL (228-460); Total Protein 6.7 g/dL (6.2-8.2)
[2024-05-13 22:30] LABS: Microalbumin Creatinine Ratio 19 mg/g Cr (0-30); Urine Alcohol Negative (Negative); Urine Barbiturate Negative (Negative); Urine Cocaine Negative (Negative); Urine Creatinine 78.5 mg/dL (39.0-259.0); Urine Methadone Negative (Negative); Urine Opiates Negative (Negative); Urine Phencyclidine Negative (Negative)
== END | disposition home or self-care (01) ==
LOC: LABWHC1 14:13
CPT/HCPCS: 36415; 80053; 80306; 82043; 82306; 82570; 82728; 83036; 83540; 83550; 84153

== ENCOUNTER → 2024-05-13 | Outpatient (CLI) | payer MEDICARE, OTHER ==
--- NOTE | 2024-05-13 16:10 | XR ---
EXAMINATION TYPE: XR Hip LT and AP Pelvis DATE OF EXAM: 05/13/2024 3:48 PM CLINICAL INDICATION: Male, 69 years old with history of M25.552, G89.29; [facility] COMPARISON: None. TECHNIQUE: XR Hip LT and AP Pelvis; hip was examined in the frontal and lateral projections and a AP pelvis. FINDINGS: No evidence for acute process, joint dislocation or significant soft tissue swelling. Osteo phyte formation of the superior acetabulum of the hip. There is mild joint space narrowing. Calcifica tions of the vas deferens bilaterally. IMPRESSION: 1. No evidence for acute process. 2. Moderate left and mild right hip osteoarthrosis. [facility], Workstation: [id number], 05/13/2024 4:08 PM
--- NOTE | 2024-05-13 16:11 | XR ---
EXAMINATION TYPE: XR lumbar spine 2 or 3V DATE OF EXAM: 05/13/2024 3:48 PM CLINICAL INDICATION: Male, 69 years old with history of M54.50, G89.29; [facility] COMPARISON: 08/23/2013 TECHNIQUE: XR lumbar spine 2 or 3V - Frontal, lateral and coned in L5-S1 lateral views of the spine. FINDINGS: No evidence of any acute osseous pathology. No evidence of loss of vertebral body height i s seen. There is normal alignment of the lumbar vertebral bodies. Scattered disc space narrowing. Mul tilevel marginal osteophyte formation throughout the visualized spine. There is facet joint arthropat hy throughout the spine. Scattered at least mild neural foraminal stenosis. Atherosclerosis of the ar terial vasculature. IMPRESSION: 1. No acute fracture. 2. Mildly progressed from prior, now Moderate multilevel disc degeneration. [facility], , 05/13/2024 4:08 PM
== END | disposition home or self-care (01) ==
LOC: RADXRMAIN 15:15
PROVIDERS: ATTEND Student in an Organized Health Care Education/Training Program
CPT/HCPCS: 72100; 73502

== ENCOUNTER → 2024-06-15 | Outpatient (CLI) | payer MEDICARE, OTHER ==
--- NOTE | 2024-06-15 09:57 | US ---
EXAMINATION TYPE: US abdomen complete DATE OF EXAM: 06/15/2024 COMPARISON: CT abdomen 01/20/2017 CLINICAL INDICATION: Male, 69 years old with history of R10.9 LT SIDE ABD PAIN; Pt states left side A BD pain TECHNIQUE: Grayscale and color Doppler imaging of the abdomen was performed. FINDINGS: EXAM MEASUREMENTS: Liver Length: 16.8 cm Gallbladder Wall: 0.2 cm CBD: 0.4 cm Spleen: 8.7 cm Right Kidney: 10.8 x 4.7 x 5.0 cm Left Kidney: 11.4 x 4.9 x 4.7 cm [employer] NOTES: Pancreas: Cobblestone appearance to body, head and tail obscured by overlying bowel gas Liver: Heterogeneous with hypoechoic area near pao= 2.8 x 1.5 x 1.9 cm Gallbladder: wnl Evidence for sonographic Lowe's sign: No CBD: wnl Spleen: wnl Right Kidney: No evidence of hydro Left Kidney: No evidence of hydro, hypoechoic appearance to renal hilum Upper IVC: wnl Abd Aorta: Ectatic without evidence of AAA The liver is diffusely hyperechoic without cirrhotic appearance. There is a region of hypoechogenicit y near the pao hepatis region. The intrahepatic portion of the IVC and proximal abdominal aorta are within normal limits. There is no evidence of cholelithiasis. Common bile duct is unremarkable. T he visualized portions of the pancreas are homogenous. The spleen is unremarkable. Kidneys are symm etric and free of hydronephrosis. No renal lesions are seen. IMPRESSION: 1. No ultrasound evidence for acute process. 2. Hepatic steatosis with focal fatty sparing near the pao region corresponding to prior CT. [facility], , 06/15/2024 9:54 AM
== END | disposition home or self-care (01) ==
LOC: RADUSWWP 08:01
PROVIDERS: ATTEND Student in an Organized Health Care Education/Training Program
DX: K76.0 Fatty (change of) liver, not elsewhere classified (principal)
CPT/HCPCS: 76700

== ENCOUNTER 2024-08-10 18:04 | Emergency (ER) | payer MEDICARE, OTHER ==
--- NOTE | 2024-08-10 18:27 | ED ---
Chest Pain HPI - General Source: patient, RN notes reviewed Mode of arrival: ambulatory Limitations: no limitations - History of Present Illness MD Complaint: chest pain Onset/Timin -: days(s) <Rosendo Diaz - Last Filed: 08/10/24 18:25> - General Source: patient, RN notes reviewed, old records reviewed Mode of arrival: ambulatory Limitations: no limitations - History of Present Illness MD Complaint: chest pain, other (Weakness dizziness congestion) Onset: during rest, during exertion Pain Location: substernal, left chest Severity: moderate Consistency: intermittent Improves With: nothing Worsens With: nothing Context: recent illness Anginal Symptoms: nausea Other Symptoms: palpitations Treatments Prior to Arrival: none <Adrian Cade - Last Filed: 08/11/24 07:34> - General Stated Complaint: low balance headache light headed Time Seen by Provider: 08/10/24 18:21 - History of Present Illness Initial Comments: Quick note: This is a 69-year-old male with history of CAD, AMI, hypertension, hyperlipidemia presenting with chest pain (03/30) x 3 days. Patient describes pain as constant and sharp, radiating to back ever since falling into a ditch several days ago. Patient states pain worsens with movement and endorses a ssociated nausea. Patient also mentions pain in his RLE with bilateral pins and needle sensation as well as urinary incontinence. (Rosendo Diaz) This is a 69-year-old male to the ER for evaluation he presents today for evaluation of altered mental status patient was found here to have fever weakness he did admit to some chest pain some nausea but just overall not feel ing well also complaining of weakness dizziness and congestion starting yesterday (Adrian Cade) - Related Data Home Medications Medication Instructions Recorded Confirmed Etanercept [Enbrel] 50 mg SQ SA 03/26/18 12/23/20 Empagliflozin [Jardiance] 10 mg PO DAILY 12/22/20 12/23/20 Folic Acid 1 mg PO DAILY 12/22/20 12/23/20 predniSONE 5 mg PO DAILY 12/22/20 12/23/20 Previous Rx's Medication Instructions Recorded Aspirin 81 mg PO DAILY #30 chew 10/13/14 Nitroglycerin Sl Tabs [Nitrostat] 0.4 mg SUBLINGUAL Q5M PRN #25 tab 10/13/14 ARIPiprazole [Abilify] 2.5 mg PO DAILY 30 Days tab 12/28/20 Atorvastatin [Lipitor] 80 mg PO DAILY 30 Days tab 12/28/20 DULoxetine HCL [Cymbalta] 60 mg PO DAILY 30 Days capsule.dr 12/28/20 Ergocalciferol [Vitamin D2 (1250 1,250 mcg PO Q7D capsule 12/28/20 Mcg = 47481 Iu)] Metoprolol Succinate (ER) [Toprol 50 mg PO DAILY 30 Days tab.er.24h 12/28/20 XL] Spironolactone [Aldactone] 25 mg PO DAILY 30 Days tab 12/28/20 metHOTREXate sodium [Methotrexate] 20 mg PO SA 30 Days #0 tab 12/28/20 Cephalexin [Keflex] 500 mg PO Q6HR 7 Days #28 cap 10/12/22 Allergies Allergy/AdvReac Type Severity Reaction Status Date / Time No Known Allergies Allergy Verified 08/10/24 19:22 Review of Systems ROS Other: All systems not noted in ROS Statement are negative. <Rosendo Diaz - Last Filed: 08/10/24 18:25> ROS Other: All systems not noted in ROS Statement are negative. <Adrian Cade - Last Filed: 08/11/24 07:34> ROS Statement: Those systems with pertinent positive or pertinent negative responses have been documented in the HPI. EKG Findings - EKG Comments: EKG Findings:: EKG is sinus tachycardia 100 AR 156 QRS 89 QTc 376 - EKG Results: EKG: interpreted by ERMD <Adrian Cade - Last Filed: 08/11/24 07:34> Past Medical History Past Medical History: Coronary Artery Disease (CAD), Hyperlipidemia, Hypertension, Myocardial Infarction (non Q-wave), Rheumatoid Arthritis (RA) Additional Past Medical History / Comment(s): only 1 ear canal d/t defect Last Myocardial Infarction Date:: [facility] History of Any Multi-Drug Resistant Organisms: None Reported Past Surgical History: No Surgical Hx Reported, Ear Surgery, Heart Catheterization With Stent, Orthopedic Surgery Additional Past Surgical History / Comment(s): plate right leg, arthroscopic in the right ankle 3, sinus surgery, multiple reconstructive surgeries on face, bilateral eyelid surgery 23 times. Past Anesthesia/Blood Transfusion Reactions: No Reported Reaction Date of Last Stent Placement:: unknown Past Psychological History: Anxiety, Depression Smoking Status: Never smoker Past Alcohol Use History: Occasional Past Drug Use History: Cocaine - Past Family History Father Family Medical History: Coronary Artery Disease (CAD), Myocardial Infarction ([place]) Additional Family Medical History / Comment(s): Father at age 61 from myocardial infarction. Mother Family Medical History: Diabetes Mellitus Additional Family Medical History / Comment(s): Mother in her 30s from complications of diabetes. Brother(s) Family Medical History: Diabetes Mellitus, Hypertension Additional Family Medical History / Comment(s): Patient has 2 brothers one with diabetes and one with hypertension. Sister(s) Additional Family Medical History / Comment(s): He has one sister with diabetes and one half-sister. He has 3 children with no major medical problems. <Rosendo Diaz - Last Filed: 08/10/24 18:25> General Exam <Rosendo Diaz - Last Filed: 08/10/24 18:25> General appearance: alert, in no apparent distress Head exam: Present: atraumatic, normocephalic, normal inspection Eye exam: Present: normal appearance, PERRL, EOMI. Absent: scleral icterus, conjunctival injection, periorbital swelling ENT exam: Present: normal exam, mucous membranes moist Neck exam: Present: normal inspection. Absent: tenderness, meningismus, lymphadenopathy Respiratory exam: Present: normal lung sounds bilaterally. Absent: respiratory distress, wheezes, rales, rhonchi, stridor Cardiovascular Exam: Present: regular rate, normal rhythm, normal heart sounds. Absent: systolic murmur, diastolic murmur, rubs, gallop, clicks GI/Abdominal exam: Present: soft, normal bowel sounds. Absent: distended, tenderness, guarding, rebound, rigid Extremities exam: Present: normal inspection, full ROM, normal capillary refill. Absent: tenderness, pedal edema, joint swelling, calf tenderness Back exam: Present: normal inspection Neurological exam: Present: alert, oriented X3, CN II-XII intact Psychiatric exam: Present: normal affect, normal mood Skin exam: Present: warm, dry, intact, normal color. Absent: rash <Adrian Cade - Last Filed: 08/11/24 07:34> - General Exam Comments Initial Comments: Visual Physical Exam Vital signs reviewed General: Well-appearing, nontoxic, no acute distress. Head: Normocephalic, atraumatic Eyes: PERRLA, EOMI ENT: Airway patent Chest: Nonlabored breathing Skin: No visual rash, normal skin tone Neuro: Alert and oriented 3 Musculoskeletal: No gross abnormalities (Rosendo Diaz) Course <Adrian Cade - Last Filed: 08/11/24 07:34> Vital Signs 08/10/24 08/10/24 19:18 20:53 Temperature 100.9 F H 100.4 F H Pulse Rate 109 H 107 H Respiratory 20 20 Rate Blood Pressure 126/70 123/75 O2 Sat by Pulse 94 L 97 Oximetry - Reevaluation(s) Reevaluation #1: 08/10/24 20:23 Medical records reviewed (Adrian Cade) Reevaluation #2: 08/10/24 20:23 Patient symptoms improving (Adrian Cade) Reevaluation #3: 08/10/24 20:33 Patient informed of results questions answered (Adrian Cade) Reevaluation #4: Was pt. sent in by a medical professional or institution (, PA, SPOT WASHER, urgent care, hospital, or [place] facility...) When possible be specific @ -no Did you speak to anyone other than the patient for history (EMS, parent, family, police, friend...)? What history was obtained from this source @ -no Did you review nursing and triage notes (agree or disagree)? Why? @ -agree Are old charts reviewed (outside hosp., previous admission, EMS record, old EKG, old radiological studies, urgent care reports/EKG's, [place] health [place] records)? Report findings @ -yes Differential Diagnosis (chest pain, altered mental status, abdominal pain women, abdominal pain men, vaginal bleeding, weakness, fever, dyspnea, syncope, headache, dizziness, GI bleed, back pain, seizure, CVA, palpatations, mental health, musculoskeletal)? @ -prior EKG interpreted by me (3pts min.). @ -yes X-rays interpreted by me (1pt min.). @ -yes negative for acute disease CT interpreted by me (1pt min.). @ -no U/S interpreted by me (1pt. min.). @ -no What testing was considered but not performed or refused? (CT, X-rays, U/S, labs)? Why? @ -none What meds were considered but not given or refused? Why? @ -none Did you discuss the management of the patient with other professionals (professionals i.e. , PA, SPOT WASHER, lab, RT, psych nurse, geriatric social work professor, admiralty lawyer, teacher, aviation tactical readiness officer, bottle caser)? Give summary @ -no Was smoking cessation discussed for >3mins.? @ -no Was critical care preformed (if so, how long)? @ -no Were there social determinants of health that impacted care today? How? (Homelessness, low income, unemployed, alcoholism, drug addiction, transportation, low edu. Level, literacy, decrease access to med. care, halfway, rehab)? @ -none Was there de-escalation of care discussed even if they declined (Discuss DNR or withdrawal of care, Hospice)? DNR status @ -no What co-morbidities impacted this encounter? (DM, HTN, Smoking, COPD, CAD, Cancer, CVA, ARF, Chemo, Hep., AIDS, mental health diagnosis, sleep apnea, morbid obesity)? @ -none Was patient admitted / discharged? Hospital course, mention meds given and route, prescriptions, significant lab abnormalities, going to OR and other pertinent info. @ - 69 male to the ER for evaluation of dizziness fever not feeling well. Patient is found to have coronavirus. Symptoms improving here in the ER dizz iness was improving able to ambulate without difficulty no other complaints patient can be discharged home Discharge Undiagnosed new problem with uncertain prognosis? @ -no Drug Therapy requiring intensive monitoring for toxicity (Heparin, Nitro, Insulin, Cardizem)? @ -no Were any procedures done? @ -no Diagnosis/symptom? @ -Coronavirus no fever Acute, or Chronic, or Acute on Chronic? @ -Acute Uncomplicated (without systemic symptoms) or Complicated (systemic symptoms)? @ -Complicated Side effects of treatment? @ -no Exacerbation, Progression, or Severe Exacerbation? @ -exacerbation Poses a threat to life or bodily function? How? (Chest pain, [place], [place], pneumonia, PE, COPD, DKA, ARF, appy, cholecystitis, CVA, Diverticulitis, Homicidal, Suicidal, threat to staff... and all critical care pts) @ -yes with coronavirus (Adrian Cade) Reevaluation #5: Differential Fever: Pneumonia, viral URI, endocarditis, myocarditis, pericarditis, otitis, sinusitis, peritonsillar Abscess, retropharyngeal Abscess, epiglottitis, peritonitis, appendicitis, Frieda cystitis, diverticulitis, hepatitis, colitis, UTI, PID, TOA, pyelonephritis, prostatitis, epididymitis, meningitis, encephalitis, pulmonary embolism, CVA, thyroid storm, pancreatitis, adrenal crisis, cavernous sinus thrombosis, this is not meant to be an all-inclusive list. Differential Dizziness: Benign paroxysmal positional Vertigo, Meniere's disease, otitis media, acoustic neuroma, vertebrobasilar insufficiency, cerebellar stroke, encephalitis, hypovolemic, arrhythmia, coronary artery syndrome, anemia, this is not meant to be an all-inclusive list (Adrian Cade) Chest Pain MDM <Rosendo Diaz - Last Filed: 08/10/24 18:25> <Adrian Cade - Last Filed: 08/11/24 07:34> - MDM I completed the quick note portion of this chart signed BOSTON Gonzalez (Rosendo Diaz) 69 male to the ER for evaluation of dizziness fever not feeling well. Patient is found to have coronavirus. Symptoms improving here in the ER dizziness was improving able to ambulate without difficulty no other complaints patient can be discharged home (Adrian Cade) Disposition <Rosendo Diaz - Last Filed: 08/10/24 18:25> Is patient prescribed a controlled substance at d/c from ED?: No Time of Disposition: 20:30 <Adrian Cade - Last Filed: 08/11/24 07:34> Clinical Impression: Fever, Coronavirus infection Disposition: HOME SELF-CARE Condition: Good Instructions (If sedation given, give patient instructions): Coronavirus Disease 2019 (COVID-19), Fever in Adults (ED) Referrals: Laisha Sims DO [Primary Care Provider] - 1-2 days
[2024-08-10 19:22] VITALS: RESP 20
[2024-08-10 19:53] LABS: Basophils % (A) 0 %; Eosinophils # (A) 0.1 k/uL (0-0.7); Eosinophils % (A) 1 %; HCT 47.7 % (39.0-53.0); HGB 16.3 gm/dL (13.0-17.5); Lymphocytes # (A) 0.7 k/uL (1.0-4.8); Lymphocytes % (A) 8 %; MCH 33.7 pg (25.0-35.0); MCHC 34.2 g/dL (31.0-37.0); MCV 98.5 fL (80.0-100.0); Mean Platelet Volume 7.1; Monocytes # (A) 0.4 k/uL (0-1.0); Monocytes % (A) 5 %; Neutrophils # (A) 7.2 k/uL (1.3-7.7); Neutrophils % (A) 84 %; Platelet Count 226 k/uL (150-450); RBC 4.84 m/uL (4.30-5.90); RDW 14.3 % (11.5-15.5); WBC 8.6 k/uL (3.8-10.6)
[2024-08-10 20:06] LABS: Partial Thromboplastin Time 24.5 sec (22.0-30.0); Prothrombin Time 11.3 sec (10.0-12.5)
[2024-08-10 20:08] LABS: ALT 51 U/L (4-49); AST 45 U/L (17-59); African American GFR (CKD) >90 (>60 ml/min/1.73 sqM); Albumin 4.3 g/dL (3.5-5.0); Alkaline Phosphatase 60 U/L (38-126); Anion Gap 10 mmol/L; Blood Urea Nitrogen 17 mg/dL (9-20); Calcium 9.6 mg/dL (8.4-10.2); Carbon Dioxide 24 mmol/L (22-30); Chloride 99 mmol/L (98-107); Glucose 119 mg/dL (74-99); Magnesium 1.9 mg/dL (1.6-2.3); Non-African American GFR(CKD) >90 (>60 ml/min/1.73 sqM); Potassium 4.7 mmol/L (3.5-5.1); Sodium 133 mmol/L (137-145); Total Bilirubin 1.2 mg/dL (0.2-1.3); Total Protein 7.3 g/dL (6.3-8.2)
--- NOTE | 2024-08-10 20:09 | XR ---
EXAMINATION TYPE: XR chest 2V DATE OF EXAM: 08/10/2024 7:43 PM COMPARISON: Chest radiographs from 06/03/2023 CLINICAL INDICATION: Male, 69 years old with history of Chest Pain; [facility] TECHNIQUE: XR chest 2V Frontal and lateral views of the chest. FINDINGS: Lungs/Pleura: There is no evidence of pleural effusion, focal consolidation, or pneumothorax. Pulmonary vascularity: Unremarkable. Heart/mediastinum: Cardiomediastinal silhouette is unremarkable. Musculoskeletal: No acute osseous pathology. IMPRESSION: No acute cardiopulmonary disease/process. [facility], , 08/10/2024 8:06 PM
[2024-08-10] MEDS: KETOROLAC 15 MG/ML 1 ML VIAL IVP STA (20:22)
[2024-08-10] MEDS: IBUPROFEN 800 MG TAB PO STA (20:23)
[2024-08-10] MEDS: ACETAMINOPHEN TAB 500 MG TAB PO STA (20:24)
[2024-08-10] MEDS: SODIUM CHLORIDE 0.9% 1,000 ML IV STA (20:25)
[2024-08-10] MEDS: SODIUM CHLORIDE 0.9% 500 ML 500 ML IV STA (20:25)
[2024-08-10 20:28] LABS: Influenza A Not Detected (Not Detectd); Influenza B Not Detected (Not Detectd); RSV Not Detected (Not Detectd)
[2024-08-10] MEDS: ASPIRIN 81 MG PO STA (20:33)
[2024-08-10] MEDS: ONDANSETRON 4 MG/2 ML VIAL IVP STA (20:33)
[2024-08-10] MEDS: DEXAMETHASONE SOD PHOSPHATE 10 MG/ML 1 ML VIAL IVP STA (20:46)
[2024-08-10] MEDS: IBUPROFEN 600 MG STARTER PACK 4 TAB BTL PO STA (20:47)
[2024-08-10] MEDS: ONDANSETRON 4 MG ODT STARTER PACK 2 TAB BTL PO STA (20:47)
[2024-08-10 20:54] VITALS: BP 123/75; PULSE 107; TEMP 100.4
== END 2024-08-10 20:55 | disposition home or self-care (01) ==
LOC: EC 18:04
DX: U07.1 COVID-19 (principal)
CPT/HCPCS: 96374; 96375; 36415; 93005; 87651; 85379; 80053; 83735; 84484; 85025; 85610; 85730; 87636; 71046; 99285; J1100; J1885; S0119; 96361; 99284

== ENCOUNTER → 2024-10-15 | Outpatient (CLI) | payer MEDICARE, OTHER ==
[2024-10-15 18:16] LABS: Basophils # (A) 0.04 X 10*3/uL (0.00-0.10); Basophils % (A) 0.5 %; Eosinophils # (A) 0.02 X 10*3/uL (0.04-0.35); Eosinophils % (A) 0.3 %; HCT 49.1 % (39.6-50.0); HGB 16.1 g/dL (13.0-17.0); Lymphocytes # (A) 0.92 X 10*3/uL (0.90-5.00); MCH 32.9 pg (27.0-32.0); MCHC 32.8 g/dL (32.0-37.0); MCV 100.4 FL (80.0-97.0); Mean Platelet Volume 9.4 FL (9.5-12.2); Monocytes # (A) 0.61 X 10*3/uL (0.20-1.00); NRBC Per 100 WBC 0 X 10*3/uL (0.00-0.01); Neutrophils # (A) 6.05 X 10*3/uL (1.80-7.70); Neutrophils % (A) 78.9 %; Platelet Count 277 X 10*3/uL (140-440); RBC 4.89 X 10*6/uL (4.40-5.60); RDW 13.6 % (11.5-14.5); WBC 7.66 X 10*3/uL (4.50-10.00)
[2024-10-15 18:49] LABS: ALT 91 U/L (10-49)
[2024-10-15 18:50] LABS: AST 48 U/L (14-35); C Reactive Protein <0.30 mg/dL (0.00-0.80)
[2024-10-15 19:20] LABS: Erythrocyte Sedimentation Rate 8 mm/Hr (0-20)
== END | disposition home or self-care (01) ==
LOC: LABWHC1 10:54
PROVIDERS: ATTEND Internal Medicine Rheumatology
DX: M06.9 Rheumatoid arthritis, unspecified (principal)
CPT/HCPCS: 36415; 82565; 84450; 84460; 85025; 85652; 86140

== ENCOUNTER → 2024-12-01 | Outpatient (CLI) | payer MEDICARE, OTHER ==
[2024-12-01 15:19] LABS: ALT 22 U/L (10-49); AST 19 U/L (14-35)
== END | disposition home or self-care (01) ==
LOC: LABWHC1 10:58
PROVIDERS: ATTEND Internal Medicine Rheumatology
DX: R74.8 Abnormal levels of other serum enzymes (principal)
CPT/HCPCS: 36415; 84450; 84460

== ENCOUNTER → 2025-02-15 | Outpatient (CLI) | payer MEDICARE, OTHER | LOC: CPPFTMAIN 14:05 | PROVIDERS: ATTEND Student in an Organized Health Care Education/Training Program | DX: J45.40 Moderate persistent asthma, uncomplicated (principal); R06.00 Dyspnea, unspecified; F14.90 Cocaine use, unspecified, uncomplicated | CPT/HCPCS: 94060; 94726; 94729 ==